=== PATIENT | male | born 1960 | race Caucasian/White ===

== ENCOUNTER 2021-06-02 09:41 | Outpatient (CLI) | payer BC, SELFPAY ==
--- NOTE | ~2021-06-02 | XR_ITS ---
EXAMINATION: XR shoulder LT min 2V DATE: 06/02/2021 09:59 INDICATION: Adhesive capsulitis of left shoulder. Limited range of motion. TECHNIQUE: 4 views of left shoulder were obtained. COMPARISON: None. FINDINGS: Bone alignment is normal. No fracture. There is mild osteoarthritis of glenohumeral joint a nd moderate osteoarthritis of acromioclavicular joint. IMPRESSION: 1. Polyarticular osteoarthritis. Reviewed, dictated and finalized at location A.
== END 2021-06-02 09:42 | disposition home or self-care (01) ==
LOC: ANHIMG 09:43
PROVIDERS: PCP Internal Medicine; Visit Provider Internal Medicine
DX: M19.012 Primary osteoarthritis, left shoulder (principal); M75.02 Adhesive capsulitis of left shoulder
CPT/HCPCS: 73030

== ENCOUNTER 2021-12-09 00:20 | Day surgery (SDC) | payer BC, SELFPAY ==
[2021-11-25 14:28] VITALS: BMI 32.0
--- NOTE | 2021-12-08 16:58 | PM.HPGS ---
History of Present Illness History of Present Illness Consent: Risks, benefits, and alternatives have been discussed and questions answered. Patient agrees to proceed with procedure. Chief complaint: hx colon polyps Narrative: Harish To is a 61 year old male referred for colon cancer screening. He has had polyps removed in the past. 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 Encounter for preventive health examination Encounter for routine adult health examination with abnormal findings Encounter to establish care Essential tremor Follow up History of alcoholism Hx of colonic polyps Hyperlipidemia Impacted cerumen of left ear 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 Peripheral neuropathy Personal history of COVID-19 Prostate cancer screening Ventral hernia Vitamin D deficiency Surgical History Surgical History H/O colonoscopy 2017- 5 yr schedule History of coronary artery stent placement Hx of angioplasty Hx of tonsillectomy Social History Social History Smoking status: Current every day smoker Second hand tobacco smoke exposure: No Additional smoking assessment comments: Smokes Marijuana Alcohol intake: current Drinks per week: 1 Substance use: current Substance use type: marijuana Last use: 11/25/2021 Meds Home Medications and Allergies Home Medications Medication Instructions Recorded Confirmed Type ascorbic acid (vitamin C) 1,000 mg 1 g PO DAILY 03/12/20 12/09/21 History tablet aspirin 81 mg tablet,delayed 81 mg PO DAILY 03/12/20 12/09/21 History release (Adult Low Dose Aspirin) cetirizine 10 mg capsule (Allergy 10 mg PO DAILY PRN Allergy Symptoms 03/12/20 12/09/21 History Relief (cetirizine)) cholecalciferol (vitamin D3) 50 50 mcg PO DAILY 03/12/20 12/09/21 History mcg (2,000 unit) capsule lisinopril 40 mg tablet 40 mg PO DAILY 03/12/20 12/09/21 History multivitamin 1 tablet PO DAILY 03/12/20 12/09/21 History omeprazole 20 mg capsule,delayed 20 mg PO DAILY 03/12/20 12/09/21 History release pen needle, diabetic 31 gauge x #100 ea 11/21/20 12/09/21 Rx 3/16 (BD Ultra-Fine Mini Pen Needle) clopidogrel 75 mg tablet See Rx Instructions .Route 04/10/21 12/09/21 Rx .COMPLEX #90 tabs flash glucose scanning reader #1 ea 06/10/21 12/09/21 Rx (FreeStyle Chris 2 [place]) flash glucose sensor (FreeStyle #6 ea 06/10/21 12/09/21 Rx Chris 2 Sensor kit) liraglutide 0.6 mg/0.1 mL (18 mg/3 See Rx Instructions .Route 11/17/21 12/09/21 Rx mL) subcutaneous pen injector .COMPLEX #9 mL (Victoza 3-Juan) insulin glargine U-300 conc 300 See Rx Instructions .Route 11/23/21 12/09/21 Rx unit/mL (1.5 mL) subcutaneous pen .COMPLEX #4.5 mL (Toujeo SoloStar U-300 Insulin) gabapentin 100 mg capsule See Rx Instructions .Route 12/09/21 Rx .COMPLEX #90 caps metformin 1,000 mg tablet See Rx Instructions .Route 12/09/21 Rx .COMPLEX #75 tabs rosuvastatin 40 mg tablet See Rx Instructions .Route 12/09/21 Rx .COMPLEX #30 tabs Allergies Allergy/AdvReac Type Severity Reaction Status Date / Time No Known Allergies Allergy Verified 12/09/21 07:09 Exam Const: General: alert Orientation/consciousness: patient oriented x3 Resp: Auscultation: clear to auscultation bilaterally Cardio: Rhythm: regular rhythm GI: GI Palp: Yes Soft to palpation and No Tenderness to palpation
[2021-12-09 07:00] VITALS: BP 147/88; PULSE 147; RESP 18; TEMP 36.5; O2SAT 96; BMI 31.4
[2021-12-09] MEDS: LACTATED RINGERS 1,000 ML 150 ML IV CONT (07:21)
[2021-12-09 07:24] LABS: Glucose Point of Care 352 mg/dl (65-105)
--- NOTE | 2021-12-09 07:43 | WPDANESEPPF ---
Anes - Initial Pre Proc Eval Procedure: Operation Date: 12/09/21 08:00 Proposed Procedures p Screening Colonoscopy - Skyler Edmonds MD Date/Time: 12/09/21 07:43 Surgeon: kSyler Edmonds MD Pre Op Diagnosis: hx colon polyps Patient Data Age: 61 Gender: M Height: 1.83 m Weight: 104.9 kg Last Vital Signs Temp 97.7 F 12/09/21 07:00 Pulse 147 H 12/09/21 07:00 Resp 18 12/09/21 07:00 BP 147/88 H 12/09/21 07:00 Pulse Ox 96 12/09/21 07:00 O2 Del Method Room Air 12/09/21 07:00 Allergies Allergy/AdvReac Type Severity Reaction Status Date / Time No Known Allergies Allergy Verified 12/09/21 07:09 Home Medications Medication Instructions Recorded Confirmed Type ascorbic acid (vitamin C) 1,000 mg 1 g PO DAILY 03/12/20 12/09/21 History tablet aspirin 81 mg tablet,delayed 81 mg PO DAILY 03/12/20 12/09/21 History release (Adult Low Dose Aspirin) cetirizine 10 mg capsule (Allergy 10 mg PO DAILY PRN Allergy Symptoms 03/12/20 12/09/21 History Relief (cetirizine)) cholecalciferol (vitamin D3) 50 50 mcg PO DAILY 03/12/20 12/09/21 History mcg (2,000 unit) capsule lisinopril 40 mg tablet 40 mg PO DAILY 03/12/20 12/09/21 History multivitamin 1 tablet PO DAILY 03/12/20 12/09/21 History omeprazole 20 mg capsule,delayed 20 mg PO DAILY 03/12/20 12/09/21 History release pen needle, diabetic 31 gauge x #100 ea 11/21/20 12/09/21 Rx 3/16 (BD Ultra-Fine Mini Pen Needle) clopidogrel 75 mg tablet See Rx Instructions .Route 04/10/21 12/09/21 Rx .COMPLEX #90 tabs flash glucose scanning reader #1 ea 06/10/21 12/09/21 Rx (FreeStyle Chris 2 [place]) flash glucose sensor (FreeStyle #6 ea 06/10/21 12/09/21 Rx Chris 2 Sensor kit) liraglutide 0.6 mg/0.1 mL (18 mg/3 See Rx Instructions .Route 11/17/21 12/09/21 Rx mL) subcutaneous pen injector .COMPLEX #9 mL (Victoza 3-Juan) insulin glargine U-300 conc 300 See Rx Instructions .Route 11/23/21 12/09/21 Rx unit/mL (1.5 mL) subcutaneous pen .COMPLEX #4.5 mL (Toujeo SoloStar U-300 Insulin) gabapentin 100 mg capsule See Rx Instructions .Route 12/09/21 Rx .COMPLEX #90 caps metformin 1,000 mg tablet See Rx Instructions .Route 12/09/21 Rx .COMPLEX #75 tabs rosuvastatin 40 mg tablet See Rx Instructions .Route 12/09/21 Rx .COMPLEX #30 tabs Laboratory Tests 12/09/21 07:16 POC Capillary Glucose 352 mg/dl H mg/dl (65-105) Patient hx anesthesia problems: none Family hx anesthesia problems: none Results Review: All pre-operative results and documents have been reviewed as part of the pre-operative evaluation. 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 Encounter for preventive health examination Encounter for routine adult health examination with abnormal findings Encounter to establish care Essential tremor Follow up History of alcoholism Hx of colonic polyps Hyperlipidemia Impacted cerumen of left ear 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
[2021-12-09 08:15] VITALS: BP 106/68; PULSE 95; RESP 16; O2SAT 97
[2021-12-09 08:24] LABS: Glucose Point of Care 285 mg/dl (65-105)
[2021-12-09 08:25] VITALS: BP 107/74; PULSE 93; RESP 24; O2SAT 94
[2021-12-09 08:35] VITALS: BP 123/86; PULSE 82; RESP 18; O2SAT 96
== END 2021-12-09 08:50 | disposition home or self-care (01) ==
PROVIDERS: PCP Internal Medicine; Visit Provider Internal Medicine Gastroenterology
PROC: 0DJD8ZZ Inspection of Lower Intestinal Tract, Via Natural or Artificial Opening Endoscopic (ICD-10-PCS; CPT 45378; principal; 2021-12-09 08:00)
DX: Z12.11 Encounter for screening for malignant neoplasm of colon (principal); D12.4 Benign neoplasm of descending colon; D12.2 Benign neoplasm of ascending colon; I25.10 Atherosclerotic heart disease of native coronary artery without angina pectoris; I10 Essential (primary) hypertension; G25.0 Essential tremor; E78.5 Hyperlipidemia, unspecified; E11.40 Type 2 diabetes mellitus with diabetic neuropathy, unspecified; E55.9 Vitamin D deficiency, unspecified; Z79.82 Long term (current) use of aspirin; Z79.02 Long term (current) use of antithrombotics/antiplatelets; Z79.899 Other long term (current) drug therapy; Z79.84 Long term (current) use of oral hypoglycemic drugs; Z79.4 Long term (current) use of insulin; Z95.5 Presence of coronary angioplasty implant and graft; F12.90 Cannabis use, unspecified, uncomplicated; E66.9 Obesity, unspecified; Z68.31 Body mass index [BMI] 31.0-31.9, adult
CPT/HCPCS: 45380; 82948; 88305; J2704; J7120

== ENCOUNTER 2022-05-26 09:45 | Outpatient (RCR) | payer BC, SELFPAY ==
[2022-04-07 11:15] LABS: Glucose Point of Care 248 mg/dl (65-105)
[2022-04-15 10:40] LABS: Glucose Point of Care 235 mg/dl (65-105)
[2022-04-15 10:40] LABS: Glucose Point of Care 244 mg/dl (65-105)
[2022-05-03 10:33] LABS: Glucose Point of Care 133 mg/dl (65-105)
[2022-05-03 10:33] LABS: Glucose Point of Care 149 mg/dl (65-105)
[2022-05-10 10:53] LABS: Glucose Point of Care 274 mg/dl (65-105)
[2022-05-26 09:55] LABS: Glucose Point of Care 231 mg/dl (65-105)
[2022-05-26 10:31] LABS: Glucose Point of Care 289 mg/dl (65-105)
== END 2022-06-10 16:28 | disposition home or self-care (01) ==
LOC: ANHCPREHAB 09:45
PROVIDERS: PCP Internal Medicine; Visit Provider Surgery
DX: Z95.1 Presence of aortocoronary bypass graft (principal)
CPT/HCPCS: 93798

== ENCOUNTER 2022-12-01 08:40 | Outpatient (CLI) | payer BC, SELFPAY ==
--- NOTE | 2022-12-21 16:42 | WPDSLEEPSTUD ---
Sleep Study Date of Study: 12/01/22 Ordering Provider: Jorge Wild MD Interpreting Physician: Chelo Hough MD Sleep Study Type: Split Polysomnogram Height: 1.83 m Weight: 90.718 kg Body Mass Index: 27.1 Neck Circumference (inches): 17 [place]: 18 Reason for Sleep Study Hypersomnolence Sleep History Harish To is a 62-year-old man with excessive daytime sleepiness and excessive sleep episodes up to 16 hours a day. He it started after he had COVID in January 2021. He never awakens from sleep feeling short of breath. He never wakes at night with heartburn, belching or coughing.??He is not sure if he snores snores, does not know if he snores loudly enough that others complain. He never has trouble sleeping when he has a cold. He never wakes up gasping for breath during the night. He never has breathing problems at night. He never sweats excessively at night. He never notices his heart pounding or beating irregularly during the night. He constantly falls asleep during the day. He constantly falls asleep involuntarily, rarely falls asleep while driving. He never experiences loss of muscle tone with strong emotion. He never has daytime difficulty at work due to excessive sleepiness, he is retired. He never feels paralyzed on waking or falling asleep. He never experiences vivid dreams upon waking or falling asleep. He never feels afraid of going to sleep. He rarely has nightmares. He frequently recalls his dreams. He rarely has thoughts racing through his mind. He never feels sad or depressed. He never feels anxiety. He never notices parts of his body jerk. He never kicks during the night. He never feels crawling or aching feelings in his legs. He never feels leg pain at night. He never has morning jaw pain, frequently grinds his teeth at night. He constantly feels bothered by pain during the day, occasionally awakened by pain during the night. He never wakes up feeling stiff in the morning, and he never wakes feeling sore or achy. He never awakens with pain in his neck, spine, or joints. Normal bedtime is 9:00 p.m., falling asleep within 5 minutes. He wakes 4 times during the night to urinate, returning to sleep within 5 minutes. He typically gets 10-12+ hours of sleep including daytime naps. His wake up time is 7:00 a.m.. He takes naps in the day, although he does not feel refreshed afterwards. He is drowsy for 3 hours after waking. Habits:??Tobacco: Never Caffeine: 2 servings daily. 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 Encounter for preventive health examination Encounter for routine adult health examination with abnormal findings Encounter for routine adult health examination without abnormal findings Encounter to establish care Essential tremor Follow up History of alcoholism Hx of colonic polyps Hyperlipidemia Hypersomnolence Impacted cerumen of left ear Insomnia On shelter drug therapy Peripheral neuropathy Personal history of COVID-19 Prostate cancer screening Seasonal allergies Ventral hernia Vitamin D deficiency Surgical History Surgical History H/O colonoscopy 2017- 5 yr schedule History of coronary artery stent placement Hx of angioplasty Hx of tonsillectomy Family History Family History Father Hypertension Diabetes mellitus Mother Liver cancer Social History
[2022-12-22 10:38] VITALS: BMI 27.1
== END 2022-12-02 06:38 | disposition home or self-care (01) ==
LOC: ANHCSM 08:41
PROVIDERS: PCP Internal Medicine; Visit Provider Internal Medicine
DX: G47.33 Obstructive sleep apnea (adult) (pediatric) (principal); G47.10 Hypersomnia, unspecified; E78.5 Hyperlipidemia, unspecified; I25.10 Atherosclerotic heart disease of native coronary artery without angina pectoris; E11.9 Type 2 diabetes mellitus without complications; Z79.4 Long term (current) use of insulin; E55.9 Vitamin D deficiency, unspecified
CPT/HCPCS: 95811

== ENCOUNTER 2023-02-21 11:06 | Emergency (ER) | payer BC, SELFPAY ==
--- NOTE | ~2023-02-21 | CT_ITS ---
EXAMINATION: CT cervical spine wo con DATE: 02/21/2023 13:01 INDICATION: Head injury. Neck pain. TECHNIQUE: Computed tomography (CT) of the cervical spine was performed without intravenous contrast. Automated exposure control and iterative reconstruction technique were employed. The dose-length pro duct was 514.71 mGy-cm. COMPARISON: None FINDINGS: There is mild kyphosis of cervical spine. There is 7 degrees dextrocurvature of cervicothor acic spine. Vertebral body heights are normal. There is mildly decreased disc height at C4-C5, C5-C6, and C6-C7. There is ossification of posterior longitudinal ligament at the C6 and C7 with mild centr al canal stenosis. The following disc levels are specifically discussed: C2-C3: There is mild bilateral uncovertebral joint osteoarthritis. There is severe right and moderate left facet joint osteoarthritis. There is mild right neural foraminal stenosis. There is no central canal stenosis. C3-C4: There is moderate right and mild left uncovertebral joint osteoarthritis. There is moderate bi lateral facet joint osteoarthritis. There is mild bilateral neural foraminal stenosis. There is mild central canal stenosis. C4-C5: There is mild right and moderate left uncovertebral joint osteoarthritis. There is mild bilate ral facet joint osteoarthritis. There is mild bilateral neural foraminal stenosis. There is mild cent ral canal stenosis. C5-C6: There is mild bilateral uncovertebral joint osteoarthritis. There is moderate and severe left facet joint osteoarthritis. There is mild bilateral neural foraminal stenosis. There is mild central canal stenosis. C6-C7: There is mild bilateral uncovertebral joint osteoarthritis. There is moderate bilateral facet joint osteoarthritis. There is mild left neural foraminal stenosis. There is mild central canal steno sis. C7-T1: There is no uncovertebral joint osteoarthritis. There is moderate and severe left facet joint osteoarthritis. There is mild left neural foraminal stenosis. There is no central canal stenosis. IMPRESSION: 1. No fracture. 2. Mild cervical spondylosis. Reviewed, dictated and finalized at location A. INE STUFFER
--- NOTE | ~2023-02-21 | XR_ITS ---
EXAMINATION: XR shoulder RT min 2V DATE: 02/21/2023 12:49 INDICATION: Right shoulder pain. Fall. TECHNIQUE: 4 views of right shoulder were obtained. COMPARISON: None. FINDINGS: Bone alignment is normal. There is heterotopic ossification adjacent to superior aspect of distal clavicle. There is severe osteoarthritis of acromioclavicular joint and mild osteoarthritis of glenohumeral joint. Median sternotomy wires are noted. IMPRESSION: 1. 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 2. Polyarticular osteoarthritis. Reviewed, dictated and finalized at location A. GER PROJECT MANAGEMENT IMPRESSION: 1. 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 2. Polyarticular osteoarthritis.
--- NOTE | ~2023-02-21 | CT_ITS ---
EXAMINATION: CT brain wo con DATE: 02/21/2023 13:01 INDICATION: Head injury. TECHNIQUE: Computed tomography (CT) of the head was performed without intravenous contrast. The mA wa s adjusted according to patient size. Iterative reconstruction technique was employed. The dose-lengt h product was 756.67 mGy-cm. COMPARISON: None FINDINGS: There is no intracranial hemorrhage, acute infarction, or abnormal intracranial mass lesion . There are scattered areas of low attenuation in the cerebral white matter, which is within normal l imits for the patient's age. The ventricles are normal in size. The orbits are normal. There is mild mucosal thickening in the paranasal sinuses. The mastoid air cells are normal. The orbits are normal. IMPRESSION: 1. Normal aging brain. Reviewed, dictated and finalized at location A. N MENDER IMPRESSION: 1. Normal aging brain.
[2023-02-21 11:08] VITALS: BP 152/85; PULSE 116; RESP 18; TEMP 37.1; O2SAT 100
--- NOTE | 2023-02-21 12:01 | ED.FALL ---
HPI - Fall General Chief Complaint: Fall Stated Complaint: fall last night Time Seen by Provider: 02/21/23 11:13 History of Present Illness HPI Narrative: [age] old male present to the emergency department for evaluation after having a ground level fall. Patient reports he was intoxicated last night and fell backwards and struck his head. Patient denies any loss conscious. Patient does complain head pain and right shoulder pain. Patient is on blood thinners for cardiac reasons. Patient denies any new chest pain or shortness of breath. Patient denies any other complaints. Related Data Home Medications Medication Instructions Recorded Confirmed multivitamin 1 tablet PO DAILY 03/12/20 11/29/22 omeprazole 20 mg capsule,delayed 20 mg PO DAILY 03/12/20 11/29/22 release cholecalciferol (vitamin D3) 50 100 mcg PO DAILY 02/02/22 11/29/22 mcg (2,000 unit) capsule nitroglycerin 0.4 mg sublingual 0.4 mg sublingual Q5M PRN 03/01/22 11/29/22 tablet acetaminophen 325 mg capsule 650 mg PO Q6H PRN 03/08/22 11/29/22 aspirin 325 mg tablet 325 mg PO DAILY 03/08/22 11/29/22 Allergies Allergy/AdvReac Type Severity Reaction Status Date / Time No Known Allergies Allergy Verified 02/21/23 11:48 Review of Systems Review of Systems: All systems reviewed & are unremarkable except as noted in HPI and below PMFSH Past Medical History Medical History Abnormal ankle brachial index (SAMMIE) ASHD (arteriosclerotic heart disease) Benign essential hypertension BMI 26.0-26.9,adult BMI 27.0-27.9,adult BMI 28.0-28.9,adult BMI 29.0-29.9,adult BMI 30.0-30.9,adult CAD (coronary artery disease) Colon cancer screening Diabetes mellitus with hyperglycemia, with long-term current use of insulin 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 Encounter for preventive health examination Encounter for routine adult health examination with abnormal findings Encounter for routine adult health examination without abnormal findings Encounter to establish care Essential tremor Follow up History of alcoholism Hx of colonic polyps Hyperlipidemia Hypersomnolence Impacted cerumen of left ear Insomnia On retirement drug therapy Peripheral neuropathy Personal history of COVID-19 Prostate cancer screening Seasonal allergies Ventral hernia Vitamin D deficiency Surgical History Surgical History H/O colonoscopy 2017- 5 yr schedule History of coronary artery stent placement Hx of angioplasty Hx of tonsillectomy Family History Family History Father Hypertension Diabetes mellitus Mother Liver cancer Social History Social History Smoking status: Never smoker Second hand tobacco smoke exposure: No Additional smoking assessment comments: Smokes Marijuana Alcohol intake: current Drinks per week: 1 Substance use: current Substance use type: marijuana Last use: 11/25/2021 Lack of Transportation: No Lack of Food: Never True Current Housing: I Have Housing Concerned About Future Housing: No Difficulty Paying Gas/Electric Bills: No Difficulty Paying for Meds: No Currently Unemployed: No Education: Bachelor's Degree Difficulty w/ Childcare or Family Care: No Gender identity (if verbalized by the patient): Male Exam Narrative: APPEARANCE: Well appearing, no pain, no distress, well-nourished. HEAD: normocephalic, atraumatic. EYES: PERRLA/EOMI, conjunctivae clear. NOSE: Normal no drainage NECK: Supple. No adenopathy, no masses. RESPIRATORY: Airway patent, respirations nonlabored. Clear to auscultation bilaterally, no rales, rhonchi, wheezing. CARDIOVASCULAR: Regular rate and rhythm without murmurs rubs or gallops. ABDOMINAL: Soft, nontender, nondistended, normal bowel sounds M
== END 2023-02-21 14:53 | disposition home or self-care (01) ==
PROVIDERS: Emergency Provider Emergency Medicine; PCP Internal Medicine
DX: S09.90XA Unspecified injury of head, initial encounter (principal); S42.031A Displaced fracture of lateral end of right clavicle, initial encounter for closed fracture; I25.10 Atherosclerotic heart disease of native coronary artery without angina pectoris; I10 Essential (primary) hypertension; E78.5 Hyperlipidemia, unspecified; E11.43 Type 2 diabetes mellitus with diabetic autonomic (poly)neuropathy; E55.9 Vitamin D deficiency, unspecified; Z95.5 Presence of coronary angioplasty implant and graft; Z87.19 Personal history of other diseases of the digestive system; M47.812 Spondylosis without myelopathy or radiculopathy, cervical region; M19.011 Primary osteoarthritis, right shoulder; Z79.4 Long term (current) use of insulin; Z79.84 Long term (current) use of oral hypoglycemic drugs; Z79.82 Long term (current) use of aspirin; W01.0XXA Fall on same level from slipping, tripping and stumbling without subsequent striking against object, initial encounter
CPT/HCPCS: 70450; 72125; 73030; 99284; A4565

== ENCOUNTER 2023-04-08 12:33 | Outpatient (CLI) | payer BC, SELFPAY ==
--- NOTE | ~2023-04-08 | XR_ITS ---
Clinical Indication: Chest pain PA and lateral views of the chest: Comparison: None Findings: The lungs are clear, without evidence of focal consolidation or pleural effusion. Cardiome diastinal silhouette is within normal limits. Bones and soft tissues are unremarkable. Impression: Normal chest. Reviewed, dictated and finalized at location . AND DOG BATHER Impression: Normal chest.
--- NOTE | ~2023-04-08 | XR_ITS ---
EXAM: XR clavicle RT DATE: 04/08/2023 12:47 HISTORY: S42.001A - Fracture of part of right clavicle F/U . COMPARISON: 02/21/2023. FINDINGS: Redemonstration of a chip fracture of the distal aspect of the right clavicle, increased v isualization of the fracture line. No callus. No new acute fracture detected. Visualized lung parench yma is clear. IMPRESSION: Fracture of the distal right clavicle, increased visualization of the fracture line which may represent hyperemia from early healing change. No callus formation. Reviewed, dictated and finalized at location K. [employer]URING TECHNICIAN IMPRESSION: Fracture of the distal right clavicle, increased visualization of t he fracture line which may represent hyperemia from early healing change. No ca llus formation.
== END 2023-04-08 12:34 | disposition home or self-care (01) ==
LOC: ANHIMG 12:35
PROVIDERS: PCP Internal Medicine; Visit Provider Internal Medicine
DX: S42.001A Fracture of unspecified part of right clavicle, initial encounter for closed fracture (principal); X58.XXXA Exposure to other specified factors, initial encounter
CPT/HCPCS: 71046; 73000

== ENCOUNTER 2023-08-13 10:55 | Outpatient (CLI) | payer MEDICARE, SELFPAY ==
--- NOTE | ~2023-08-13 | MR_ITS ---
EXAMINATION: MR brain/brain stem wo/w con DATE: 08/13/2023 11:54 INDICATION: Altered mental status, unspecified. TECHNIQUE: Magnetic resonance imaging (MRI) of the brain and brainstem was performed without and with 18 mL MultiHance intravenous contrast. COMPARISON: Head CT 02/21/2023 FINDINGS: There are scattered areas of nonspecific increased T2-weighted signal intensity in the cere bral white matter, which is within normal limits for the patient's age. There is no intracranial hemo rrhage, acute infarction, or abnormal intracranial mass lesion. The ventricles are normal in size. Th ere is mild mucosal thickening in the ethmoid sinuses. The orbits are normal. The mastoid air cells a re normal. IMPRESSION: 1. Normal aging brain. Reviewed, dictated and finalized at location E. IMPRESSION: 1. Normal aging brain.
== END 2023-08-13 10:56 | disposition home or self-care (01) ==
PROVIDERS: PCP Internal Medicine; Visit Provider Internal Medicine
DX: R41.82 Altered mental status, unspecified (principal)
CPT/HCPCS: 70553; A9577

== ENCOUNTER 2024-01-09 08:40 | Outpatient (CLI) | payer MEDICARE, SELFPAY ==
--- NOTE | 2024-01-10 10:43 | WPDNEUROLOGY ---
Neurology EEG Report General Information Date of Study: 01/09/24 TEST Eeg DIAGNOSIS transient global amnesia CONDITION OF RECORDING awake drowsy and sleep EEG NUMBER [id number] CLINICAL HISTORY patient reports he was driving home last week and and ended up in [place]. Reported he remembered everything chest that he was lost and did not know how to get home. EEG DESCRIPTION Background rhythm consists of low to medium voltage 5 to 6 hertz per 2nd theta activity admixed with intermittent 3 to 4 hertz per 2nd delta activity. Bilateral symmetrical sleep activity is noted during sleep with symmetrical sleep spindles. Photic stimulation produced normal drive. Hyperventilation not done. Non paroxysmal. Nonfocal. Nonlateralizing. IMPRESSION Mildly abnormal record due to the presence of bihemispheric excessive amount of theta activity though there is no evidence of any paroxysmal discharge or evidence of electrical focal activity on either hemisphere. Clinical correlation recommended . This tracing is not compatible with seizure, the possibility of a focal lesion cannot be ruled out .
== END 2024-01-09 08:41 | disposition home or self-care (01) ==
LOC: ANHLAB 08:41
PROVIDERS: PCP Internal Medicine; Visit Provider Internal Medicine
DX: G45.4 Transient global amnesia (principal)
CPT/HCPCS: 95816

== ENCOUNTER 2024-06-08 16:57 | Outpatient (CLI) | payer MEDICARE, SELFPAY ==
--- NOTE | ~2024-06-08 | XR_ITS ---
XR chest 2V Ordering provider: Jorge Wild MD History: 64 years Male with . R63.4 - Abnormal weight loss . Comparison: April 08, 2023 FINDINGS: MEDIASTINUM: The cardiac silhouette is not enlarged. Postoperative changes in the mediastinum. LUNGS: No infiltrates, effusions or pneumothorax. OTHER: No free air under the diaphragm. Degenerative changes of the spine. IMPRESSION: No acute cardiopulmonary pathology. Reviewed, dictated and finalized at location A.
--- OUTSIDE RECORDS SUMMARY | 2024-06-08 17:03 | XMS_ITS | Data Portability ---
Author Organization [facility] OFFICE Address [address] [address] Assessment Encounter Date Assessment Date Assessment LastModified by Organization Details LastModified Time 12/25/2018 12/25/2018 LABORATORY ANALYSIS: The patient s laboratory analysis was obtained on December 11, 2018 and shows a cholesterol of 141, HDL 44, LDL 73 and triglycerides 166. Glucose is 237. His A1c on December 11, 2018 was 9.8. The patient s NMR LipoProfile was discussed in detail and has some high-risk areas here, but his myeloperoxidase level is in a good range of 345 and modifications were discussed with the patient for dietary and activity changes. His other chemistry tests are discussed including his CMP, which is otherwise stable with a BUN and creatinine of 11 and 0.75 respectively. Alkaline phosphatase is normal. His thyroid profile did show a TSH of 1.22, which is normal. White count is 7.0, hemoglobin 15.1 and platelet count was 231. The patient does show some glucose on his urinalysis. His PSA was 1.0, which is stable for the patient. His Hemoccult stool card done on our examination was negative. The other laboratory analysis for the patient included his EKG, which is done on December 11, 2018 showing a sinus rhythm, a few nonspecific changes, but those appear to be stable compared to previous EKG, which was performed on July 12, 2017. His other testing included spirometry, which showed an FEV1 of 3.87 and his oxygen saturation at the time of testing on December 11, 2018 was 100%. His audiogram was also recorded and his ankle brachial index was 0.9 both left and right. A&P: The patient is 58 years old. He does have a history of coronary artery disease and diabetes type 2, which is insulin requiring. We are adjusting the patient s insulin dose. He is on Toujeo now at a dose of 70 units a day. We will continue his other medications. We will also increase the insulin dose to 80 units a day now subcutaneously. He does have followup appointments with his specialists as necessary. He saw Dr. Adan from a cardiac perspective on October 20, 2018. He will call Dr. Car Middleton and confirm about the next colonoscopy when that is due and also keep up with eye examination. We have to confirm if he has received Shingrix shots. He will be getting a Tdap shot today, which is December 25, 2018. He will aggressively work on diet, exercise and lifestyle changes. Specifically, he will be retiring as of February 22, 2019. He will be returning some time in January that actually will be his last day. He will be working on exercise and diet with more than 150 minutes of walking per day and improving in terms of diet intake. We have also gone over screening tests with the patient including fall risk screen, depression screen, anxiety screens and alcohol screens and those are negative. The patient is going to AA six times a week now and he is doing quite well. No other issues or problems for him. He is making good progress and we expect even improving labs as we increased the patient s insulin and perhaps titrate as necessary going forward. He will return back to the office in approximately two to three months time when he will have a CMP, lipid profile, A1c and CBC performed two weeks prior. He will call for any other questions or changes in the interim or should his improvements in his diet, exercise, etc. prove to be inadequate, he will aggressively follow on this. 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 We will continue to follow the patient closely. Last Dennison III, MD. MAYO/claire/ SHARYN/Last--Jesi- -[id number] DOT: 12/25/2018 matty Not available 12/26/2018 09:24:36 04/26/2019 04/26/2019 A&P: The patient with blood sugar now running about the 120s to 110 range but as high as 178. He will not titrate medicines now but can titrate down to as low as 20 units of his Toujeo and going on the Victoza from 1.8 units down to 1.2 units as it goes in .6 mg increments on his pen. He will have laboratory analysis today including a CMP, lipid profile, A1c, and CBC with a glucose reading now. He will return back in a couple of weeks time to go over those test but also follow the progress on the glucose readings. Ultimately, he will return back in December of 2019 and we will make adjustments in terms of his visits and therapies based on his progress. He expressed understanding and agreement in our plans. Last Dennison III, MD/claire/SHARYN/ 020 jboslerlll Not available 04/27/2019 12:24:46 05/17/2019 05/17/2019 A&P: The patient with blood sugar now running about the 130s range but as high as 193. The patient s laboratory analysis was obtained on 04/26/2019 and shows a cholesterol of 132, HDL 42, LDL 59 and triglycerides 267. Glucose is 205. His A1c on December 11, 2018 was 9.8 however has improved to 8.7% as of 05/02/2019 and he expects this to continue to improve. He will continue on his other medicines also including the Victoza pen. He will return back in a couple or three months with a CMP, Lipid and A1C to be done 2 weeks prior. We will follow the progress and his glucose readings. Ultimately, he will return back in December of 2019 and we will make adjustments in terms of his visits and therapies based on his progress. He expressed understanding and agreement in our plans. And he will contact us for any questions for changes in status. aLst Dennison III, MD/05/17/2019 [email or web address] Not available 05/17/2019 11:38:49 Plan of Treatment Reminders Order Date Submit Date Provider Last Modified By Organization Details Last Modified Time Details Appointments None recorded. 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, respirato ry specimen 2019 020 anderson Factorli [facility], [address], [facility], [place], [address], 0 08:47:52 HbA1c (hemoglob in A1c), blood 2019 020 [facility], [address], [place], [address], 0 13:40:37 glucose, fasting, fingersti ck, blood (point of care) 2019 020 [facility], [address], [place], [address], 0 13:40:37 lipid panel, serum 2019 020 [facility], [address], [facility], [place], [address], 0 07:40:19 CMP, serum or plasma 2019 020 [facility], [address], [facility], [place], [address], 0 07:40:19 CBC w/ auto diff 2019 020 [facility], [address], [place], [address], 0 13:40:37 fecal occult blood, immunoass ay, stool 2018 019 [facility], [address] [facility] [address], [address], 9 10:33:43 unlisted lab - mdvip alternati ve awp 2018 019 shireen [facility], [address], [place], [address], 9 15:56:54 Referral None recorded. Procedures body compositi on analysis (PROC) 2018 019 [facility], [address], [address], 9 10:26:48 Surgeries None recorded. Imaging audiogram [id number], [address], [address], 9 15:02:38 spirometr y [email or web address], [address], [address], 9 15:02:38 electroca rdiogram [address], [address], [address], 9 15:02:38 Medication Orders None recorded. Patient TargetsNo targets recorded. Patient Instructions Encounter Date Encounter Id Patient Instructions Last Modified By Organization Details Last Modified Time 12/11/2018 [id number] (SAMMIE) ankle brachial index* jboslerlll Not available 12/11/2018 10:26:48 cano anxiety inventory* jboslerlll Not available 12/11/2018 10:26:48 epworth sleepiness scale* jboslerlll Not available 12/11/2018 10:26:48 functional assessment screening* jboslerlll Not available 12/11/2018 10:26:48 mini mental state exam* jboslerlll Not available 12/11/2018 10:26:48 visual acuity* jboslerlll Not available 12/11/2018 10:26:48 Patient reminded blood was drawn today. Encouraged to hydrate and be cautious as they may become dizzy or light headed. If issues or symptoms, return to clinic or contact nearest medical personnel. We look forward to seeing you to discuss the results of these labs. Be well and see you soon! anderson Not available 12/11/2018 09:26:27 12/25/2018 [id number] In compliance with Medicare guidelines, we will be billing Medicare to inform them of your adherence to completing your necessary preventive care. anderson Not available 12/25/2018 08:15:54 Reason for Referral None Reported. Results Created Date Observation Date Name Description Value Unit Range Abnormal Flag Note LastModifiedBy Organization Detail LastModifiedTime 11/14/1911/14/2018 lipid panel , serum cholesterol, total 148 mg/dL <200 normal Not Available [facility] [address] [facility], [place], [address], 11/14/2018 09:19:16 11/14/1911/14/2018 lipid panel , serum HDL cholesterol 46 mg/dL >40 normal Not Available [facility] [address] [facility], [place], [address], 11/14/2018 09:19:16 11/14/1911/14/2018 lipid panel , serum triglyceride s 247 mg/dL <150 high If a non-f astin g speci men was colle cted, consi josé miguel repea t trigl yceri de testi ng on a fasti ng speci men if clini mateusz indic ated. Savage nolasco et al. J. of Clin. Lipid ol. 2015; 9:129 -169. Not Available [facility] [address] [facility], [place], [address], 11/14/2018 09:19:16 11/14/1911/14/2018 lipid panel , serum LDL-choleste rol 68 mg/dL _(jorge alberto c) normal Refer ence range : <100 Leobardo able range <100 mg/dL for prima ry preve ntion ; <70 mg/dL for patie nts with CHD or diabe tic patie nts with > or = 2 CHD risk facto rs. LDL-C is now calcu lated using the Chantelle n-Hop kins calcu kodak n, which is a valid ated novel shereen panchal acleandro than the Fried naheed equat ion in the estim ation of LDL-C . Chantelle maria SS et al. TERENCE. 2013; 310(1 9): 2061- 2068 (http ://ed ucati on.Qu estDi leaselocks. com/f aq/FA Q164) Not Available [facility] [address] [facility] [place], [address], 11/14/2018 09:19:16 11/14/1911/14/2018 lipid panel , serum chol/HDLC ratio 3.2 (calc ) <5.0 normal Not Available [facility] [address] [place], [address], 11/14/2018 09:19:16 11/14/1911/14/2018 lipid panel , serum non HDL cholesterol 102 mg/dL _(jorge alberto c) <130 normal For patie nts with diabe mayda plus 1 major ASCVD risk facto r, treat ing to a non-H DL-C goal of <100 mg/dL (LDL- C of <70 mg/dL ) is consi malissa rodriguez optio n. Not Available [facility] [address] [facility] [place], [address], 11/14/2018 09:19:16 11/14/1911/14/2018 thyro id panel , serum T3 uptake 28 % 22-35 normal Not Available [facility] [address] [facility] [place], [address], 11/14/2018 09:19:17 11/14/1911/14/2018 thyro id panel , serum T4 (thyroxine), total 8.7 mcg/d L 4.9-10 .5 normal Not Available [facility] [address] [facility] [place], [address], 11/14/2018 09:19:17 11/14/1911/14/2018 thyro id panel , serum free T4 index (T7) 2.4 1.4-3. 8 normal Not Available [facility] [address] [facility] [place], [address], 11/14/2018 09:19:17 11/14/1911/14/2018 thyro id panel , serum TSH 0.95 mIU/L 0.40-4 .50 normal Not Available [facility] [address] [facility] [place], [address], 11/14/2018 09:19:17 11/14/1911/14/2018 CMP, serum or plasm a glucose 178 mg/dL 65-99 high Fasti ng refer ence inter itz For someo ne witho ut known diabe mayda, a gluco se value >125 mg/dL indic ates that they may have diabe mayda and this shoul d be confi rmed with a follo w-up test. Not Available [facility] [address] [place], [address], 11/14/2018 09:19:17 11/14/1911/14/2018 CMP, serum or plasm a urea nitrogen (BUN) 12 mg/dL 7-25 normal Not Available [facility] [address] [place], [address], 11/14/2018 09:19:17 11/14/1911/14/2018 CMP, serum or plasm a creatinine 0.84 mg/dL 0.70-1 .25 normal For patie nts >49 years of age, the refer ence limit for Creat inine is appro ximat gaudencio 13% highe r for peopl e ident ified as Afric an-Am agnes n. Not Available [facility] [address] [facility] [place], [address], 11/14/2018 09:19:17 11/14/1911/14/2018 CMP, serum or plasm a eGFR non-afr. indian 95 mL/mi n/1.7 3m2 > or = 60 normal Not Available [facility] [address] [place], [address], 11/14/2018 09:19:17 11/14/1911/14/2018 CMP, serum or plasm a eGFR 110 mL/mi n/1.7 3m2 > or = 60 normal Not Available [facility] [address] [place], [address], 11/14/2018 09:19:17 11/14/1911/14/2018 CMP, serum or plasm a BUN/creatini ne ratio NOT APPLIC ABLE (calc ) 6-22 Not Available [facility] [address] [facility] [place], [address], 11/14/2018 09:19:17 11/14/1911/14/2018 CMP, serum or plasm a sodium 136 mmol/ L 135-14 6 normal Not Available [facility] [address] [facility] [place], [address], 11/14/2018 09:19:17 11/14/1911/14/2018 CMP, serum or plasm a potassium 4.3 mmol/ L 3.5-5. 3 normal Not Available [facility] [address] [facility] [place], [address], 11/14/2018 09:19:17 11/14/1911/14/2018 CMP, serum or plasm a chloride 97 mmol/ L 98-110 low Not Available [facility] [address] [facility] [place], [address], 11/14/2018 09:19:17 11/14/1911/14/2018 CMP, serum or plasm a carbon dioxide 28 mmol/ L 20-32 normal Not Available [facility] [address] [facility] [place], [address], 11/14/2018 09:19:17 11/14/1911/14/2018 CMP, serum or plasm a calcium 9.9 mg/dL 8.6-10 .3 normal Not Available [facility] [address] [facility] [place], [address], 11/14/2018 09:19:17 11/14/1911/14/2018 CMP, serum or plasm a protein, total 7.3 g/dL 6.1-8. 1 normal Not Available [facility] [facility] [place], [address], 11/14/2018 09:19:17 11/14/19 19 11/14/2018 CMP, serum or plasm a albumin 4.3 g/dL 3.6-5. 1 normal Not Available [facility] [address] [place] [address], [address], 11/14/2018 09:19:17 11/14/1911/14/2018 CMP, serum or plasm a globulin 3.0 g/dL_ (calc ) 1.9-3. 7 normal Not Available [address], [address], 11/14/2018 09:19:17 11/14/1911/14/2018 CMP, serum or plasm a albumin/glob ulin ratio 1.4 (calc ) 1.0-2. 5 normal Not Available [facility] [address] [place] [address], [address], 11/14/2018 09:19:17 11/14/1911/14/2018 CMP, serum or plasm a bilirubin, total 0.4 mg/dL 0.2-1. 2 normal Not Available [facility] [address] [place] [address], [address], 11/14/2018 09:19:17 11/14/1911/14/2018 CMP, serum or plasm a alkaline phosphatase 77 U/L 40-115 normal Not Available [facility] [address] [place] [address], [address], 11/14/2018 09:19:17 11/14/1911/14/2018 CMP, serum or plasm a AST 21 U/L 10-35 normal Not Available [facility] [address] [place], [address], 11/14/2018 09:19:17 11/14/19 19 11/14/2018 CMP, serum or plasm a ALT 34 U/L 9-46 normal Not Available [facility] [address] [place], [address], 11/14/2018 09:19:17 11/14/19 19 11/14/2018 vitam in D, 25-hy droxy , total , serum vitamin D,25-oh,tota l,ia 32 NG/mL 30-100 normal Vitam in D Statu s 25-OH Vitam in D: Defic iency : <20 ng/mL Insuf ficie ncy: 20 - 29 ng/mL Optim al: > or = 30 ng/mL For 25-OH Vitam in D testi ng on patie nts on D2-valdez pplem entat ion and patie nts for whom quant itati on of D2 and D3 fract ions is requi red, the [facility] Ass[facility] eD(TM ) 25-OH VIT D, (D2,D 3), LC/MS /MS is recom jozef d: order code 57363 (rita ents >2yrs ). For more infor aubrey maria on this test, go to: http: //franklin coombs gnost ics.c om/fa q/FAQ 163 (This link is being provi ded for infor aubrey nal/e ducat ional purpo ses only. ) Not Available [facility] [address] [place], [address], 11/14/2018 09:19:18 11/14/1911/13/2018 ESR (eryt hrocy te sedim entat ion rate) , blood Sed Rate 5 Not Available [facility] [address], [place], [address], 11/13/2018 11:53:24 11/14/1911/13/2018 HbA1c (hemo globi n A1c), blood HbA1C 8.3 Not Available [facility] [address] [place] [address], [address], 11/13/2018 12:01:28 11/14/1911/13/2018 CBC w/ auto diff WBC 9.1 K/uL 4.6-10 .2 Not Available [facility] [address] [place] [address], [address], 11/13/2018 11:54:55 11/14/1911/13/2018 CBC w/ auto diff lym 2.4 K/uL 0.6-3. 4 Not Available [facility] [address] [place] [address], [address], 11/13/2018 11:54:55 11/14/1911/13/2018 CBC w/ auto diff lym % 25.9 %L 10.0-5 0.0 Not Available [facility] [address] [place] [address], [address], 11/13/2018 11:54:55 11/14/1911/13/2018 CBC w/ auto diff *mid 0.7 K/uL 0.0-0. 9 Not Available [facility] [address] [place] [address], [address], 11/13/2018 11:54:55 11/14/1911/13/2018 CBC w/ auto diff *mid % 7.7 %M 0.0-12 .0 Not Available [facility] [address] [place] [address], [address], 11/13/2018 11:54:55 11/14/1911/13/2018 CBC w/ auto diff gran 6.0 K/uL 2.0-6. 9 Not Available [facility] [address] [place] [address], [address], 11/13/2018 11:54:55 11/14/1911/13/2018 CBC w/ auto diff gran% 66.4 %g 37.0-8 0.0 Not Available [facility] [address] [place] [address], [address], 11/13/2018 11:54:55 11/14/1911/13/2018 CBC w/ auto diff RBC 5.46 M/uL 4.04-5 .48 Not Available [facility] [address] [place] [address], [address], 11/13/2018 11:54:55 11/14/1911/13/2018 CBC w/ auto diff HGB 14.9 g/dL 12.2-1 5. Not Available [facility] [address] [place] [address], [address], 11/13/2018 11:54:55 11/14/1911/13/2018 CBC w/ auto diff HCT 47.0 % 37.7-4 7.9 Not Available [facility] [address] [place] [address], [address], 11/13/2018 11:54:55 11/14/1911/13/2018 CBC w/ auto diff MCV 86.1 fL 80.0-9 7.0 Not Available [facility] [address] [place] [address], [address], 11/13/2018 11:54:55 11/14/1911/13/2018 CBC w/ auto diff MCH 27.3 pg 27.0-3 1.2 Not Available [facility] [address] [place] [address], [address], 11/13/2018 11:54:55 11/14/1911/13/2018 CBC w/ auto diff MCHC 31.7 g/dL 31.8-3 5.4 low Not Available [facility] [address] [place] [address], [address], 11/13/2018 11:54:55 11/14/1911/13/2018 CBC w/ auto diff RDW 14.2 % 11.6-1 4.8 Not Available [facility] [address] [place] [address] [place], [address], 11/13/2018 11:54:55 11/14/19 19 11/13/2018 CBC w/ auto diff plt 293 K/uL 142.-4 24. Not Available [facility] [address] [place] [address], [address], 11/13/2018 11:54:55 11/14/19 19 11/13/2018 CBC w/ auto diff MPV 7.2 fL 0.0-99 .8 Not Available [facility] [address] [place] [address], [place], [address], 11/13/2018 11:54:55 11/14/1911/13/2018 gluco se, fasti ng, finge rstic k, blood (poin t of care) FBS 161 Not Available [facility] [address] [place] [address], [address], 11/13/2018 11:54:41 12/12/1912/12/2018 PSA, serum or plasm a PSA, total 1.0 NG/mL < or = 4.0 normal The total PSA value from this assay syste m is stand ardiz ed again st the WHO stand erin. The test resul t will be appro ximat gaudencio 20% lower when jimbo red to the equim olar- stand ardiz ed total PSA (Cano man Coult er). Jimbo rison of seria l PSA resul ts shoul d be inter prete d with this fact in mind. This test was perfo rmed using the eSKY.pl chemi lumin escen t metho d. Value s obtai amy from diffe rent assay metho ds canno t be used inter eubanks eably . PSA level s, regar dless of value , shoul d not be inter prete d as absol [place] evide nce of the prese nce or absen ce of disea se. Not Available [facility] [address] [facility] [place], [address], 12/12/2018 15:04:26 12/12/19 19 12/12/2018 RPR (rapi d plasm a reagi n), serum RPR (monitor) w/refl titer NON-RE ACTIVE non-re active normal Not Available [facility] [address] [facility], [place], [address], 12/12/2018 15:04:26 12/12/19 19 12/12/2018 HIV 1+2 Ab + HIV1 p24 Ag, quant itati ve immun oassa y, serum HIV Ag/Ab, 4TH gen NON-RE ACTIVE non-re active normal HIV-1 antig en and HIV-1 /HIV- 2 antib odies were not detec ayesha. There is no labor atory evide nce of HIV infec tion. PLEAS E NOTE: This infor matio n has been discl osed to you from recor ds whose confi denti ality may be prote cted by state law. If your state requi res such prote ction , then the state law prohi bits you from fariha gallegos er discl osure of the infor matio n witho ut the speci fic writt en conse nt of the perso n to whom it perta ins, or as other das permi tted by law. A gener al autho juice ion for the relea se of medic al or other infor matio n is NOT suffi cient for this purpo se. For addit ional infor matio n pleas e refer to http: //[facility] catazalea n.que stdia gnost ics.c om/fa q/FAQ 106 (This link is being provi ded for infor matio nal/ educa gio l purpo ses only. ) The perfo rmanc e of this assay has not been clini mateusz valid ated in patie nts less than 2 years old. Not Available [facility] [address] [facility], [place], [address], 12/12/2018 19:01:45 12/12/19 19 12/12/2018 hsv (1+2) igg, serum hsv 1 IgG, type specific Ab <0.90 index normal Not Available [facility] [address] [place], [address], 12/12/2018 19:01:45 12/12/1912/12/2018 hsv (1+2) igg, serum hsv 2 IgG, type specific Ab <0.90 index normal Index Inter preta tion ----- ----- ----- ---- <0.90 Negat tim 0.90- 1.09 Equiv ocal >1.09 Posit tim This assay utili zes recom binan t type- speci fic antig ens to diffe renti ate HSV-1 from HSV-2 infec tions . A posit tim resul t canno t disti nguis h betwe en recen t and past infec tion. If recen t HSV infec tion is suspe cted but the resul ts are negat tim or equiv ocal, the assay shoul d be repea ayesha in 4-6 weeks . The perfo rmanc e rohit cteri stics of the assay have not been estab lishe d for pedia tric popul ation s, immun ocomp romis ed patie nts, or neona rose scree roc. Not Available [facility] [address] [place], [address], 12/12/2018 19:01:45 12/12/1912/12/2018 CT + NG RNA, PCR, unspe cifie d speci men chlamydia trachomatis RNA, tma, urogenital NOT DETECT ED not detect ed normal Not Available [facility] [address] [facility] [place], [address], 12/12/2018 19:01:46 12/12/1912/12/2018 CT + NG RNA, PCR, unspe cifie d speci men neisseria gonorrhoeae RNA, tma, urogenital NOT DETECT ED not detect ed normal Not Available [facility] [address] [place], [address], 12/12/2018 19:01:46 12/12/1912/12/2018 CT + NG RNA, PCR, unspe cifie d speci men comment This test was perfo rmed using the APTIM A COMBO 2 Assay ([employer] . The nabeel tical perfo rmanc e rohit cteri stics of this assay , when used to test SureP ath speci mens have been deter mined by [facility]. Not Available [facility] [address] [facility] [place], [address], 12/12/2018 19:01:46 12/12/1912/11/2018 lipid panel , serum cholesterol, total 141 mg/dL <200 Not Available [facility] - Manual Order Only [address], [place], [address], 12/16/2018 00:14:06 12/12/19 19 12/11/2018 lipid panel , serum HDL cholesterol 44 mg/dL >39 Not Available [facility] - Manual Order Only [address], [place], [address], 12/16/2018 00:14:06 12/12/19 19 12/11/2018 lipid panel , serum triglyceride s 166 mg/dL <150 high Not Available [facility] - Manual Order Only [address], [place], [address], 12/16/2018 00:14:06 12/12/19 19 12/11/2018 lipid panel , serum LDL cholesterol, calculated 73 mg/dL _(jorge alberto c) <100 Leobardo able range <100 mg/dL for prima ry preve ntion ; <70 mg/dL for patie nts with CHD or diabe tic patie nts with >= 2 CHD risk facto rs. LDL-C is now calcu lated using the Chantelle n-Hop kins calcu kodak n, which is a valid ated novel faitho kate panchal acy than the Fried naheed equat ion in the estim ation of LDL-C . Chantelle TALBERT et al. TERENCE. 2013; 310(1 9): 2061- 2068 (http ://ed mauryati on.Rachel vegaLiquid5. com/f aq/FA Q164) Not Available [facility] [address], [place], [address], 12/16/2018 00:14:06 12/12/19 19 12/11/2018 lipid panel , serum chol/HDL-C 3.2 calc <3.6 Not Available [facility] [address], [place], [address], 12/16/2018 00:14:06 12/12/19 19 12/11/2018 lipid panel , serum non-HDL cholesterol 97 mg/dL _(jorge alberto c) <130 For patie nts with diabe mayda plus 1 major ASCVD risk facto r, treat ing to a non-H DL-C goal of <100 mg/dL (LDL- C of <70 mg/dL ) is consi dered a christos aldrich n. Not Available [facility] - Manual Order Only [address], [place], [address], 12/16/2018 00:14:06 12/12/19 19 12/11/2018 lipid panel , serum TG/HDL-C 3.8 calc <2.0 high Not Available [facility] - Manual Order Only [address], [place], [address], 12/16/2018 00:14:06 12/12/1912/11/2018 CBC w/ diff WBC 7.0 K/uL 3.7-11 .0 Not Available [facility] - Manual Order Only [address], [place], [address], 12/16/2018 00:14:06 12/12/19 19 12/11/2018 CBC w/ diff RBC 5.65 M/uL 4.06-5 .70 Not Available [facility] - Manual Order Only [address], [place], [address], 12/16/2018 00:14:06 12/12/19 19 12/11/2018 CBC w/ diff hemoglobin 15.1 g/dL 12.4-1 6.9 The refer ence inter itz for red blood count , hemog lobin and hemat ocrit are based on the centr al 95th perce ntile distr ibuti on of resul ts seen for [facility] patie nts. This range does not neces saril y refle ct adequ acy of eryth rocyt e produ ction or maint enanc e for an indiv idual . Hemog lobin value s below 13 g/dL for men and 12 g/dL for women may be assoc iated with nutri gio l defic iency , bleed ing or decre ment of renal funct ion and is assoc iated with incre ased risk of morta lity, espec ially for males . (Refe rence : Nii s, et al. Curr Med Res Opin 2009; 25:11 43). Not Available [facility] - Manual Order Only [address], [place], [address], 12/16/2018 00:14:06 12/12/19 19 12/11/2018 CBC w/ diff hematocrit 47.2 % 36.7-4 8.6 Not Available [facility] - Manual Order Only [address], [place], [address], 12/16/2018 00:14:06 12/12/1912/11/2018 CBC w/ diff MCV 83.5 fL 79.0-9 9.0 Not Available [facility] - Manual Order Only [address], [place], [address], 12/16/2018 00:14:06 12/12/19 19 12/11/2018 CBC w/ diff MCH 26.7 pg 28.0-3 3.0 low Not Available [facility] - Manual Order Only [address], [place], [address], 12/16/2018 00:14:06 12/12/19 19 12/11/2018 CBC w/ diff MCHC 32.0 g/dL 32.0-3 6.0 Not Available [facility] - Manual Order Only [address], [place], [address], 12/16/2018 00:14:06 12/12/19 19 12/11/2018 CBC w/ diff red cell distribution width 13.3 % 11.7-1 5.2 Not Available [facility] - Manual Order Only [address], [place], [address], 12/16/2018 00:14:06 12/12/19 19 12/11/2018 CBC w/ diff platelet count 231 K/uL 150-40 0 Not Available [facility] - Manual Order Only [address], [place], [address], 12/16/2018 00:14:06 12/12/19 19 12/11/2018 CBC w/ diff mean platelet volume 9.5 fL 7.2-13 .0 Not Available [facility] - Manual Order Only [address], [place], [address], 12/16/2018 00:14:06 12/12/19 19 12/11/2018 CBC w/ diff neutrophil % 57.7 % 40.0-7 4.0 Not Available [facility] - Manual Order Only [address], [place], [address], 12/16/2018 00:14:06 12/12/19 19 12/11/2018 CBC w/ diff neutrophil absolute 4.05 K/uL 1.50-7 .50 Not Available [facility] - Manual Order Only [address], [place], [address], 12/16/2018 00:14:06 12/12/19 19 12/11/2018 CBC w/ diff lymphocyte % 29.1 % 19.0-4 8.0 Not Available [facility] - Manual Order Only [address], [place], [address], 12/16/2018 00:14:06 12/12/19 19 12/11/2018 CBC w/ diff lymphocyte absolute 2.04 K/uL 1.00-4 .50 Not Available [facility] - Manual Order Only [address], [place], [address], 12/16/2018 00:14:06 12/12/19 19 12/11/2018 CBC w/ diff monocyte % 8.5 % 4.0-12 .0 Not Available [facility] [address], [place], [address], 12/16/2018 00:14:06 12/12/19 19 12/11/2018 CBC w/ diff monocyte absolute 0.60 K/uL 0.10-0 .80 Not Available [facility] - Manual Order Only [address], [place], [address], 12/16/2018 00:14:06 12/12/19 19 12/11/2018 CBC w/ diff eosinophil % 3.8 % 0.0-6. 0 Not Available [facility] Only [address], [place], [address], 12/16/2018 00:14:06 12/12/19 19 12/11/2018 CBC w/ diff eosinophil absolute 0.27 K/uL 0.00-0 .50 Not Available [facility] - Manual Order Only [address], [place], [address], 12/16/2018 00:14:06 12/12/19 19 12/11/2018 CBC w/ diff basophil % 0.9 % 0.0-2. 0 Not Available [facility] - Manual Order Only [address], [place], [address], 12/16/2018 00:14:06 12/12/19 19 12/11/2018 CBC w/ diff basophil absolute 0.06 K/uL 0.00-0 .20 Not Available [facility] - Manual Order Only [address], [place], [address], 12/16/2018 00:14:06 12/12/19 19 12/11/2018 CMP, serum or plasm a glucose 237 mg/dL 65-99 high For someo ne witho ut known diabe mayda, a fasti ng gluco se value >125 mg/dL indic ates that they may have diabe mayda and this shoul d be confi rmed with a follo w-up test. The Ameri can Diabe mayda Assoc iatio n (ADA) defin es Diagn ostic Crite mayank for Diabe mayda Melli tus withi n the Stand ards of Medic al Care in Diabe mayda 2017, Diabe mayda Care 2017; 41(Valdez pplem ent 1): S1-S2 . The follo wing range s for Fasti ng Gluco se Value s are recom jozef d as Diagn ostic Crite mayank for Diabe mayda Melli tus: <100 mg/dL Chari l, 100-1 25 mg/dL Fasti ng Impai red, and >=126 mg/dL Diabe mayda. The value for diagn osis of diabe mayda (>=12 6 mg/dL Fasti ng) must be confi rmed by testi ng on a subse quent day. Not Available [facility] - Manual Order Only [address], [place], [address], 12/16/2018 00:14:06 12/12/19 19 12/11/2018 CMP, serum or plasm a calcium 9.5 mg/dL 8.5-10 .5 Not Available [facility] - Manual Order Only [address], [place], [address], 12/16/2018 00:14:06 12/12/19 19 12/11/2018 CMP, serum or plasm a sodium 138 mmol/ L 136-14 5 Not Available [facility] - Manual Order Only [address], [place], [address], 12/16/2018 00:14:06 12/12/1912/11/2018 CMP, serum or plasm a potassium 4.7 mmol/ L 3.5-5. 1 Not Available [facility] Order Only [address], [place], [address], 12/16/2018 00:14:06 12/12/1912/11/2018 CMP, serum or plasm a chloride 95 mmol/ L 95-108 Not Available [facility] - Manual Order Only [address], [place], [address], 12/16/2018 00:14:06 12/12/19 19 12/11/2018 CMP, serum or plasm a CO2 (carbon dioxide) 28 mmol/ L 21-33 Not Available [facility] - Manual Order Only [address], [place], [address], 12/16/2018 00:14:06 12/12/19 19 12/11/2018 CMP, serum or plasm a BUN (blood urea nitrogen) 11 mg/dL 8-23 Not Available [facility] Manual Order Only [address], [place], [address], 12/16/2018 00:14:06 12/12/19 19 12/11/2018 CMP, serum or plasm a creatinine 0.75 mg/dL 0.72-1 .30 Not Available [facility] - Manual Order Only [address], [place], [address], 12/16/2018 00:14:06 12/12/19 19 12/11/2018 CMP, serum or plasm a albumin 4.4 g/dL 3.5-5. 5 Not Available [facility] - Manual Order Only [address], [place], [address], 12/16/2018 00:14:06 12/12/19 19 12/11/2018 CMP, serum or plasm a total protein 7.2 g/dL 6.1-8. 0 Not Available [facility] - Manual Order Only [address], [place], [address], 12/16/2018 00:14:06 12/12/19 19 12/11/2018 CMP, serum or plasm a globulin 2.8 g/dL 1.8-3. 8 Not Available [facility] - Manual Order Only [address], [place], [address], 12/16/2018 00:14:06 12/12/19 19 12/11/2018 CMP, serum or plasm a alkaline phosphatase 77 U/L <150 Not Available [facility] - Manual Order Only [address], [place], [address], 12/16/2018 00:14:06 12/12/19 19 12/11/2018 CMP, serum or plasm a alanine aminotransfe rase (ALT) 42 U/L <51 Not Available [facility] - Manual Order Only [address], [place], [address], 12/16/2018 00:14:06 12/12/19 19 12/11/2018 CMP, serum or plasm a aspartate aminotransfe rase (AST) 30 U/L <41 Not Available [facility] - Manual Order Only [address], [place], [address], 12/16/2018 00:14:06 12/12/19 19 12/11/2018 CMP, serum or plasm a bilirubin, total 0.3 mg/dL <1.3 Not Available [facility] - Manual Order Only [address], [place], [address], 12/16/2018 00:14:06 12/12/19 19 12/11/2018 CMP, serum or plasm a eGFR male 99 mL/mi n/1.7 3m_sq uared >60 Not Available [facility] - Manual Order Only [address], [place], [address], 12/16/2018 00:14:06 12/12/19 19 12/11/2018 CMP, serum or plasm a eGFR male descent 115 mL/mi n/1.7 3m_sq uared >60 Not Available [facility] - Manual Order Only [address], [place], [address], 12/16/2018 00:14:06 12/12/19 19 12/11/2018 TSH, serum or plasm a thyroid stimulating hormone 1.220 ulu/m L 0.400- 4.500 Not Available [facility] - Manual Order Only [address], [place], [address], 12/16/2018 00:14:07 12/12/19 19 12/11/2018 HbA1c (hemo globi n A1c), blood HbA1C 9.8 % <5.7 high For someo ne witho ut known diabe mayda, a hemog lobin A1c value of 6.5% or great er indic ates that they may have diabe mayda, and this shoul d be confi rmed with a follo w-up test. For someo ne with known diabe mayda, a value <7% indic ates that their diabe mayda is well contr olled and a value great er than or equal to 7% indic ates subop timal contr ol. A1c targe ts shoul d be indiv idual ized based on durat ion of diabe mayda, age, comor bid condi tions , and other consi derat ions. Curre ntly, no conse nsus exist s for use of hemog lobin A1c for diagn osis of diabe mayda for child fanny. Not Available [facility] - Manual Order Only [address], [place], [address], 12/16/2018 00:14:07 12/12/19 19 12/11/2018 HbA1c (hemo globi n A1c), blood estimated average glucose 235 mg/dL <117 high The estim ated avera ge gluco se value is an adjun ct to the treat ment of both Type I and Type II Diabe mayda. It is not inten ded for the diagn osis or risk asses sment of patie nts witho ut diabe mayda. (Refe rence : Gaye MARQUEZ et al. Diabe mayda Care 2008; 31:14 73-14 78). Not Available [facility] - Manual Order Only [address], [place], [address], 12/16/2018 00:14:07 12/12/19 19 12/11/2018 mpo (myel opero xidas e) Ab, quant itati ve, serum myeloperoxid ase 345 pmol/ L <470 Based on a high risk sub-p opula tion (N=92 0) defin ed as ambul atory stabl e patie nts witho ut acute coron elina syndr ome who under went elect tim diagn ostic coron elina angio graph y (1) and a refer ence range study of appar ently healt hy donor s, we have defin ed the follo wing cut-o ffs for MPO: A cut-o ff of <470 pmol/ L defin es an 'appa rentl y healt hy' popul ation at lower risk for a cardi ovasc ular event , 470-5 39 pmol/ L defin es a popul ation at inter media te risk for a cardi ovasc ular event (2-fo ld incre ased risk of MACE at 3 years ), and > = 540 pmol/ L defin es a popul ation with an incre ased risk for a cardi ovasc ular event . (Refe rence : 1. Jose et al. Am J Cardi ol. 2013; 111:4 65-47 0 and perso nal commu nicat ion with Jose et al). This test is perfo rmed by a turbi dimet delmar immun oassa y metho d. This test was devel oped and its perfo rmanc e rohit cteri stics deter mined by the [facility] It has not been clear ed or appro cornelius by the U.S. FDA. The [facility] is regul ated under Clini jorge alberto Labor atory Impro vemen t Amend ments (CLIA ) as quali fied to perfo rm high- compl exity testi ng. This test is used for clini jorge alberto purpo ses. It shoul d not be regar ded as inves tigat ional or for resea rch. Not Available [facility] - Manual Order Only [address], [place], [address], 12/16/2018 00:14:07 12/12/19 19 12/11/2018 vitam in D, 25-hy droxy , total , serum vitamin D 25 hydroxy by lc-MS/MS 34.7 NG/mL >29.9 Vitam in D, 25-Hy droxy repor ts migue ntrat ions of two commo n forms , 25-OH D2 and 25-OH D3. 25-OH D3 indic ates both endog enous produ ction and suppl ement ation . 25-OH D2 is an indic ator of exoge nous sourc es, such as diet or suppl ement ation . Thera py is based on measu remen t of Total 25-OH D, with level s <20 ng/mL indic ative of Vitam in D defic iency , while level s betwe en 20 ng/mL and 30 ng/mL sugge st insuf ficie ncy. Optim al level s are >=30 ng/mL . Vitam in-D is fat-s olubl e and there fore inadv erten t or inten gio l inges tion of exces sivel y high amoun ts could be toxic . Studi es in child fanny and adult s sugge st blood level s would need to excee d 150 ng/ml befor e there is any migue rn. Rudy BAL, Brian salinas [place], Cruz off-f errsandra i KING, et al. Evalu ation , treat ment, and preve ntion of vitam in D defic iency : an Endoc rine Socie ty clini jorge alberto pract ice guide line. J Clin Endoc rinol Metab . 2011; 96(7) :1911 -30.T his test is perfo rmed by sixto love Chrom atogr aphy- Tande m Mass Spect romet ry (LC-M S/MS) methjamila love. This test was devel oped and its perfo rmanc e rohit cteri stics deter mined by the [facility]. It has not been clear ed or appro cornelius by the U.S. FDA. The [facility] is regul ated under Clini jorge alberto Labor atory Impro vemen t Amend ments (CLIA ) as quali fied to perfo rm high- compl exity testi ng. This test is used for clini jorge alberto purpo ses. It shoul d not be regar ded as inves tigat ional or for resea rch. Not Available [facility] - Manual Order Only [address], [place], [address], 12/16/2018 00:14:08 12/12/1912/11/2018 nmr lipop rofil e, serum LDL-P 1452 nmol/ L <935 high Relat tim risk: Optim al <935; Moder ate 935-1 816; High >1816 nmol/ L. Refer ence range is 592-2 404 nmol/ L. This test is perfo rmed by a Nucle sandra Ruize tic Reson ancsweta methjamila love. This test was devel oped and its perfo rmanc e rohit cteri stics deter mined by The [facility] It has not been clear ed or appro cornelius by the U.S. FDA. The [facility] is regul ated under Clini jorge alberto Labor atory Impro vemen t Amend ments (CLIA ) as quali fied to perfo rm high- compl exity testi ng. This test is used for clini jorge alberto purpo ses. It shoul d not be regar ded as inves tigat ional or for resea rch. Not Available [facility] - Manual Order Only [address], [place], [address], 12/16/2018 00:14:08 12/12/19 19 12/11/2018 nmr lipop rofil e, serum small LDL-P 783 nmol/ L <467 high Relat tim risk: Optim al <467; Moder ate 467-8 20; High >820 nmol/ L. Refer ence range is <1408 nmol/ L. Not Available [facility] - Manual Order Only [address], [place], [address], 12/16/2018 00:14:08 12/12/1912/11/2018 nmr lipop rofil e, serum LDL size 20.2 nm >20.5 low Relat tim risk: Optim al >20.5 ; High <20.6 nm. Refer ence range is 20.0- 22.3 nm. Not Available [facility] - Manual Order Only [address], [place], [address], 12/16/2018 00:14:08 12/12/1912/11/2018 nmr lipop rofil e, serum HDL-P 38.5 umol/ L >32.8 Relat tim risk: Optim al >32.8 ; Moder ate 29.2- 32.8; High <29.2 umol/ L. Refer ence range is 21.1- 43.4 umol/ L. Not Available [facility] - Manual Order Only [address], [place], [address], 12/16/2018 00:14:08 12/12/1912/11/2018 nmr lipop rofil e, serum large HDL-P <3.0 umol/ L >7.2 low Relat tim risk: Optim al >7.2; Moder ate 5.3-7 .2; High <5.3 umol/ L. Refer ence range is >3.5 umol/ L. Not Available [facility] - Manual Order Only [address], [place], [address], 12/16/2018 00:14:08 12/12/19 19 12/11/2018 nmr lipop rofil e, serum HDL size 8.2 nm >9.0 low Relat tim risk: Optim al >9.0; Moder ate 8.7-9 .0; High <8.7 nm. Refer ence range is 8.3-1 0.5 nm. Not Available [facility] - Manual Order Only [address], [place], [address], 12/16/2018 00:14:08 12/12/1912/11/2018 nmr lipop rofil e, serum large VLDL-P 6.4 nmol/ L <3.7 high Relat tim risk: Optim al <3.7; Moder ate 3.7-6 .1; High >6.1 nmol/ L. Refer ence range is <16.0 nmol/ L. Not Available [facility] - Manual Order Only [address], [place], [address], 12/16/2018 00:14:08 12/12/1912/11/2018 nmr lipop rofil e, serum VLDL size 51.6 nm <47.1 high Relat tim risk: Optim al <47.1 ; Moder ate 47.1- 49.0; High >49.0 nm. Refer ence range is 41.1- 61.7 nm. Not Available [facility] - Manual Order Only [address], [place], [address], 12/16/2018 00:14:08 12/12/1912/11/2018 urina lysis , dipst ick color YELLOW colorl ess-da rk yellow Not Available [facility] - Manual Order Only [address], [place], [address], 12/16/2018 00:14:08 12/12/1912/11/2018 urina lysis , dipst ick turbidity CLEAR clear Not Available [facility] - Manual Order Only [address], [place], [address], 12/16/2018 00:14:08 12/12/1912/11/2018 urina lysis , dipst ick glucose 1000 mg/dL <30 high Not Available [facility] - Manual Order Only [address], [place], [address], 12/16/2018 00:14:08 12/12/19 19 12/11/2018 urina lysis , dipst ick bilirubin <0.5 mg/dL <0.5 Not Available [facility] - Manual Order Only [address], [place], [address], 12/16/2018 00:14:08 12/12/1912/11/2018 urina lysis , dipst ick ketones NEGATI VE negati ve Not Available [facility] - Manual Order Only [address], [place], [address], 12/16/2018 00:14:08 12/12/1912/11/2018 urina lysis , dipst ick specific gravity 1.024 1.005- 1.035 Not Available [facility] - Manual Order Only [address], [place], [address], 12/16/2018 00:14:08 12/12/19 19 12/11/2018 urina lysis , dipst ick hemoglobin/b lood NEGATI VE negati ve Not Available [facility] - Manual Order Only [address], [place], [address], 12/16/2018 00:14:08 12/12/19 19 12/11/2018 urina lysis , dipst ick pH 6.5 5.0-8. 0 Not Available [facility] [address], [place], [address], 12/16/2018 00:14:08 12/12/19 19 12/11/2018 urina lysis , dipst ick protein 20 mg/dL <21 Altho ugh total prote in urina ry secre tion does not usual ly excee d 150 mg/24 hours or 10 mg/dL in any singl e speci men, trace amoun ts (10-2 0 mg/dL ) of prote in in urine sampl es can be obser cornelius in non-d iseas ed state s, such as migue ntrat ed urine , dehyd ratio n or after vigor ous exerc ise. Pleas e consi josé miguel the patie nt's clini jorge alberto statu s when inter preti ng resul ts. Not Available [facility] - Manual Order Only [address], [place], [address], 12/16/2018 00:14:08 12/12/19 19 12/11/2018 urina lysis , dipst ick urobilinogen <2 mg/dL <2 Not Available [facility] - Manual Order Only [address], [place], [address], 12/16/2018 00:14:08 12/12/19 19 12/11/2018 urina lysis , dipst ick nitrite NEGATI VE negati ve Not Available [facility] - Manual Order Only [address], [place], [address], 12/16/2018 00:14:08 12/12/19 19 12/11/2018 urina lysis , dipst ick leukocyte esterase <25 andreia/u L <25 Not Available [facility] - Manual Order Only [address], [place], [address], 12/16/2018 00:14:08 12/12/19 19 12/11/2018 urina lysis , dipst ick UWBC NONE cells /hpf 0-5 Not Available [facility] - Manual Order Only [address], [place], [address], 12/16/2018 00:14:08 12/12/19 19 12/11/2018 urina lysis , dipst ick URBC 0-2 cells /hpf 0-2 Not Available [facility] - Manual Order Only [address], [place], [address], 12/16/2018 00:14:08 12/12/1912/11/2018 urina lysis , dipst ick epithelial cells NONE cells /hpf 0-5 Not Available [facility] - Manual Order Only [address], [place], [address], 12/16/2018 00:14:08 12/12/1912/11/2018 urina lysis , dipst ick bacteria NONE hpf none Not Available [facility] - Manual Order Only [address], [place], [address], 12/16/2018 00:14:08 12/12/1912/11/2018 urina lysis , dipst ick hyaline casts NONE cells /lpf <10 Not Available [facility] - Manual Order Only [address], [place], [address], 12/16/2018 00:14:08 12/12/1912/11/2018 visua l acuit y* Status if not performed Patien t satisf ied w/ anothe r provid er Not Available [facility] [address] , [place], [address], 12/11/2018 09:26:33 12/12/1912/11/2018 elect vasquez elmore am Vent Rate 83 Not Available [facility] [address], [place], [address], 12/11/2018 09:26:32 12/12/1912/11/2018 elect vasquez elmore am TX Inst 208 Not Available [facility] [address], [place], [address], 12/11/2018 09:26:32 12/12/1912/11/2018 elect vasquez elmore am QRS dur 86 Not Available [facility] [address], [place], [address], 12/11/2018 09:26:32 12/12/1912/11/2018 elect vasquez diogr am QT/QTc 357/39 7 Not Available [facility] [address] [address], [place], [address], 12/11/2018 09:26:32 12/12/19 19 12/11/2018 elect vasquez diogr am P-R-T 24 31 41 Not Available [facility] [address] [place] [address], [place], [address], 12/11/2018 09:26:32 12/12/1912/11/2018 ghassan metry FVC 3.65 Not Available [facility] [address] [address], [place], [address], 12/11/2018 09:26:32 12/12/1912/11/2018 ghassan metry FEV1 3.19 Not Available [facility] [address] [place] [address], [place], [address], 12/11/2018 09:26:32 12/12/1912/11/2018 ghassan metry FEV1/FVC (%) 87.5 Not Available [facility] [address] [address], [place], [address], 12/11/2018 09:26:32 12/12/1912/11/2018 ghassan metry [id number] (L/s) 4.79 Not Available [facility] [address] [address], [place], [address], 12/11/2018 09:26:32 12/12/1912/11/2018 ghassan metry PEF (L/s) 6.73 Not Available [facility] [address] [address], [place], [address], 12/11/2018 09:26:32 12/12/19 19 12/11/2018 ghassan metry FET (s) 5.87 Not Available [facility] [address] [address], [place], [address], 12/11/2018 09:26:32 12/12/1912/11/2018 audio gram 500hz- LEFT 30 Not Available [facility] [address], [place], [address], 12/11/2018 09:26:32 12/12/1912/11/2018 audio gram 500hz- RIGHT 30 Not Available [facility] [address], [place], [address], 12/11/2018 09:26:32 12/12/1912/11/2018 audio gram 1000hz- LEFT 30 Not Available [facility] [address], [place], [address], 12/11/2018 09:26:32 12/12/1912/11/2018 audio gram 1000hz- RIGHT 30 Not Available [facility] [address], [place], [address], 12/11/2018 09:26:32 12/12/1912/11/2018 audio gram 2000hz- LEFT 30 Not Available [facility] [address], [place], [address], 12/11/2018 09:26:32 12/12/1912/11/2018 audio gram 2000hz- RIGHT 30 Not Available [facility] [address], [place], [address], 12/11/2018 09:26:32 12/12/1912/11/2018 audio gram 4000hz- LEFT 40 Not Available [facility] [address], [place], [address], 12/11/2018 09:26:32 12/12/1912/11/2018 audio gram 4000hz- RIGHT 30 Not Available [facility] [address], [place], [address], 12/11/2018 09:26:32 12/12/1912/11/2018 audio gram 6000hz- LEFT 40 Not Available [facility] [address], [address], 12/11/2018 09:26:32 12/12/1912/11/2018 audio gram 6000hz- RIGHT 30 Not Available [facility] [address], [address], 12/11/2018 09:26:32 12/12/1912/11/2018 audio gram 8000hz- LEFT 60 Not Available [facility] [address], [address], 12/11/2018 09:26:32 12/12/1912/11/2018 audio gram 8000hz- RIGHT 60 Not Available [facility] [address], [address], 12/11/2018 09:26:32 12/12/1912/11/2018 body compo sitio n nabeel sis (PROC ) Status if Not Performed Other: see note Not Available [facility] [address] [place] [address], [address], 12/11/2018 09:26:31 12/12/1912/11/2018 mini menta l state exam* Status if not performed Other: see note Not Available [facility] [address] [place] [address], [address], 12/11/2018 09:26:31 12/12/1912/11/2018 funct ional asses sment scree roc* Gender Men Not Available [facility] [address], [address], 12/11/2018 09:26:31 12/12/1912/11/2018 funct ional asses sment scree roc* Result Dissat isfied Not Available [facility] [address], [address], 12/11/2018 09:26:31 12/12/1912/11/2018 epwor th sleep iness scale * Total Score 12 Not Available [facility] [address] [place] [address], [place], [address], 12/11/2018 09:26:31 12/12/19 19 12/11/2018 epwor th sleep iness scale * Indication 10-12 Border line Not Available [facility] [address] [place] [address], [place], [address], 12/11/2018 09:26:31 12/12/19 19 12/11/2018 cano anxie ty inven tory* Total Score 2 Not Available [facility] [address] [place] [address], [place], [address], 12/11/2018 09:26:30 12/12/19 19 12/11/2018 cano anxie ty inven tory* Indication 0-7 Minim al Anxiet y Not Available [facility] [address] [place] [address], [address], 12/11/2018 09:26:30 12/12/19 19 12/11/2018 (SAMMIE) ankle brach ial index * ARM- Right 130 Not Available [facility] t Office [address] [place] [address], [address], 12/11/2018 09:26:30 12/12/19 19 12/11/2018 (SAMMIE) ankle brach ial index * ARM- Left 130 Not Available [facility] [address] [place] [address], [address], 12/11/2018 09:26:30 12/12/19 19 12/11/2018 (SAMMIE) ankle brach ial index * LEG- Right 112 Not Available [facility] t Office [address] [place] [address], [place], [address], 12/11/2018 09:26:30 12/12/19 19 12/11/2018 (SAMMIE) ankle brach ial index * LEG- Left 112 Not Available [facility] [address] [place] [address], [place], [address], 12/11/2018 09:26:30 12/12/19 19 12/11/2018 (SAMMIE) ankle brach ial index * SAMMIE PRESSURE- Right 0.9 Not Available [facility] ct [facility] [address], [address], 12/11/2018 09:26:30 12/12/19 19 12/11/2018 (SAMMIE) ankle brach ial index * SAMMIE PRESSURE- Left 0.9 Not Available [facility] [address] [address], [place], [address], 12/11/2018 09:26:30 12/26/19 19 12/25/2018 fecal occul t blood , immun oassa y, stool iFOB negati ve Not Available [facility] [address] [place] [address], [address], 12/25/2018 09:57:43 04/26/1904/27/2019 lipid panel , serum cholesterol, total 132 mg/dL <200 normal Not Available [facility] [address], [place], [address], 04/27/2019 07:40:19 04/26/1904/27/2019 lipid panel , serum HDL cholesterol 42 mg/dL > or = 40 normal Not Available [facility] [address], [place], [address], 04/27/2019 07:40:19 04/26/1904/27/2019 lipid panel , serum triglyceride s 267 mg/dL <150 high If a non-f astin g speci men was colle cted, consi josé miguel repea t trigl yceri de testi ng on a fasti ng speci men if clini mateusz indic ated. Savage nolasco et al. J. of Clin. Lipid ol. 2015; 9:129 -169. Not Available [facility] [address], [place], [address], 04/27/2019 07:40:19 04/26/19 20 04/27/2019 lipid panel , serum LDL-choleste rol 59 mg/dL _(jorge alberto c) normal Refer ence range : <100 Leobardo able range <100 mg/dL for prima ry preve ntion ; <70 mg/dL for patie nts with CHD or diabe tic patie nts with > or = 2 CHD risk facto rs. LDL-C is now calcu lated using the Chantelle n-Hop kins calcu kodak n, which is a valid ated novel metho d provi ding cha r accur acy than the Fried naheed equat ion in the estim ation of LDL-C . Chantelle maria SS et al. TERENCE. 2013; 310(1 9): 2061- 2068 (http ://ed ucati on.deltamethod dawn247 [employer]. [employer]/f aq/FA Q164) Not Available [facility] [address] [facility] [place], [address], 04/27/2019 07:40:19 04/26/1904/27/2019 lipid panel , serum chol/HDLC ratio 3.1 (calc ) <5.0 normal Not Available [facility] [address] [facility] [place], [address], 04/27/2019 07:40:19 04/26/1904/27/2019 lipid panel , serum non HDL cholesterol 90 mg/dL _(jorge alberto c) <130 normal For patie nts with diabe mayda plus 1 major ASCVD risk facto r, treat ing to a non-H DL-C goal of <100 mg/dL (LDL- C of <70 mg/dL ) is consi dered a thera peuti c optio n. Not Available [facility] [address] [facility], [place], [address], 04/27/2019 07:40:19 04/26/1904/27/2019 CMP, serum or plasm a glucose 205 mg/dL 65-99 high Fasti ng refer ence inter itz For someo ne witho ut known diabe mayda, a gluco se value >125 mg/dL indic ates that they may have diabe mayda and this shoul d be confi rmed with a follo w-up test. Not Available [facility] [address] [facility] [place], [address], 04/27/2019 07:40:19 04/26/19 20 04/27/2019 CMP, serum or plasm a urea nitrogen (BUN) 10 mg/dL 7-25 normal Not Available [facility] [address] [facility] [place], [address], 04/27/2019 07:40:19 04/26/1904/27/2019 CMP, serum or plasm a creatinine 0.73 mg/dL 0.70-1 .25 normal For patie nts >49 years of age, the refer ence limit for Creat inine is appro ximat gaudencio 13% highe r for peopl e ident ified as Afric an-Am agnes n. Not Available [facility] [address] [facility] [place], [address], 04/27/2019 07:40:19 04/26/1904/27/2019 CMP, serum or plasm a eGFR non-afr. indian 100 mL/mi n/1.7 3m2 > or = 60 normal Not Available [facility] [address] [place], [address], 04/27/2019 07:40:19 04/26/19 20 04/27/2019 CMP, serum or plasm a eGFR 116 mL/mi n/1.7 3m2 > or = 60 normal Not Available [facility] [address] [place], [address], 04/27/2019 07:40:19 04/26/1904/27/2019 CMP, serum or plasm a BUN/creatini ne ratio NOT APPLIC ABLE (calc ) 6-22 Not Available [facility] [address] [facility] [place], [address], 04/27/2019 07:40:19 04/26/19 20 04/27/2019 CMP, serum or plasm a sodium 136 mmol/ L 135-14 6 normal Not Available [facility] [address] [facility] [place], [address], 04/27/2019 07:40:19 04/26/19 20 04/27/2019 CMP, serum or plasm a potassium 5.5 mmol/ L 3.5-5. 3 high Not Available [facility] [address] [facility] [place], [address], 04/27/2019 07:40:19 04/26/19 20 04/27/2019 CMP, serum or plasm a chloride 99 mmol/ L 98-110 normal Not Available [facility] [address] [facility] [place], [address], 04/27/2019 07:40:19 04/26/19 20 04/27/2019 CMP, serum or plasm a carbon dioxide 32 mmol/ L 20-32 normal Not Available [facility] [address] [facility] [place], [address], 04/27/2019 07:40:19 04/26/19 20 04/27/2019 CMP, serum or plasm a calcium 9.9 mg/dL 8.6-10 .3 normal Not Available [facility] [place], [address], 04/27/2019 07:40:19 04/26/19 20 04/27/2019 CMP, serum or plasm a protein, total 7.0 g/dL 6.1-8. 1 normal Not Available [facility] [address] [facility] [place], [address], 04/27/2019 07:40:19 04/26/19 20 04/27/2019 CMP, serum or plasm a albumin 4.3 g/dL 3.6-5. 1 normal Not Available [facility] [address] [place], [address], 04/27/2019 07:40:19 04/26/1904/27/2019 CMP, serum or plasm a globulin 2.7 g/dL_ (calc ) 1.9-3. 7 normal Not Available [facility] [address] [facility] [place], [address], 04/27/2019 07:40:19 04/26/1904/27/2019 CMP, serum or plasm a albumin/glob ulin ratio 1.6 (calc ) 1.0-2. 5 normal Not Available [facility] [address] [facility] [place], [address], 04/27/2019 07:40:19 04/26/1904/27/2019 CMP, serum or plasm a bilirubin, total 0.4 mg/dL 0.2-1. 2 normal Not Available [facility] [address] [facility] [place], [address], 04/27/2019 07:40:19 04/26/1904/27/2019 CMP, serum or plasm a alkaline phosphatase 81 U/L 35-144 normal Not Available [facility] [employer] [facility] [address] [facility] [place], [address], 04/27/2019 07:40:19 04/26/1904/27/2019 CMP, serum or plasm a AST 17 U/L 10-35 normal Not Available [facility] [place], [address], 04/27/2019 07:40:19 04/26/1904/27/2019 CMP, serum or plasm a ALT 24 U/L 9-46 normal Not Available [facility] [address] [facility] [place], [address], 04/27/2019 07:40:19 04/26/1904/26/2019 HbA1c (hemo globi n A1c), blood HbA1C 8.7 Not Available [facility] [address] [place], [place] [address] , [place], [address], 04/26/2019 13:09:58 04/26/1904/26/2019 CBC w/ auto diff WBC 7.0 K/uL 4.6-10 .2 Not Available [facility] [address] [place] [address], [address], 04/26/2019 13:10:23 04/26/1904/26/2019 CBC w/ auto diff lym 2.4 K/uL 0.6-3. 4 Not Available [facility] [address] [place] [address], [place], [address], 04/26/2019 13:10:23 04/26/1904/26/2019 CBC w/ auto diff lym % 33.8 %L 10.0-5 0.0 Not Available [facility] [address] [place] [address], [address], 04/26/2019 13:10:23 04/26/1904/26/2019 CBC w/ auto diff *mid 0.6 K/uL 0.0-0. 9 Not Available [facility] [address] [place] [address], [address], 04/26/2019 13:10:23 04/26/1904/26/2019 CBC w/ auto diff *mid % 8.5 %M 0.0-12 .0 Not Available [facility] [address] [place] [address], [address], 04/26/2019 13:10:23 04/26/1904/26/2019 CBC w/ auto diff gran 4.0 K/uL 2.0-6. 9 Not Available [facility] [address] [place] [address], [address], 04/26/2019 13:10:23 04/26/1904/26/2019 CBC w/ auto diff gran% 57.7 %g 37.0-8 0.0 Not Available [facility] [address] [place] [address], [address], 04/26/2019 13:10:23 04/26/1904/26/2019 CBC w/ auto diff RBC 5.09 M/uL 4.04-5 .48 Not Available [facility] [address] [place] [address], [address], 04/26/2019 13:10:23 04/26/1904/26/2019 CBC w/ auto diff HGB 14.3 g/dL 12.2-1 5. Not Available [facility] [address] [place] [address], [address], 04/26/2019 13:10:23 04/26/1904/26/2019 CBC w/ auto diff HCT 43.7 % 37.7-4 7.9 Not Available [facility] [address] [place] [address], [address], 04/26/2019 13:10:23 04/26/1904/26/2019 CBC w/ auto diff MCV 85.8 fL 80.0-9 7.0 Not Available [facility] [address] [place] [address], [address], 04/26/2019 13:10:23 04/26/1904/26/2019 CBC w/ auto diff MCH 28.1 pg 27.0-3 1.2 Not Available [facility] [address] [place] [address], [address], 04/26/2019 13:10:23 04/26/1904/26/2019 CBC w/ auto diff MCHC 32.7 g/dL 31.8-3 5.4 Not Available [facility] [address] [place] [address], [address], 04/26/2019 13:10:23 04/26/1904/26/2019 CBC w/ auto diff RDW 15.8 % 11.6-1 4.8 high Not Available [facility] [address] [address], [place], [address], 04/26/2019 13:10:23 04/26/19 20 04/26/2019 CBC w/ auto diff plt 237 K/uL 142.-4 24. 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 A negat tim resul t does not rule out the possi bilit y of COVID -19 and shoul d not be used as the sole basis for treat ment or patie nt manag ement decis ions. If COVID -19 is still suspe cted, based on expos ure histo ry toget her with other clini jorge alberto findi ngs, re-te sting shoul d be consi dered in consu ltati on with publi c healt h autho ritie s. Labor atory test resul ts shoul d alway s be consi dered in the meghan xt of clini jorge alberto obser vatio ns and epide miolo gical data in [facility] g a final diagn osis and patie nt manag ement decis ions. Gee e osiris w the Fact Sheet s and FDA autho rized label ing avail able for healt h care provi ders and patie nts using the follo wing websi mayda: https ://ww w.que stdia gnost ics.c om/ho me/Co vid-1 9/HCP /NAAT /fact -shee t2 https ://ww w.que stdia gnost ics.c om/ho me/Co vid-1 9/Pat ients /NAAT / fact- sheet 2 This test has been autho rized by the FDA under an Emerg ency Use Autho rizat ion (EUA) for use by autho rized labor atori es. Due to the curre nt publi c healt h emerg ency, [facility] is recei ving a high volum e of sampl es from a wide varie ty of swabs and media for COVID -19 testi ng. In order to serve patie nts durbenny g this publi c healt h crisi s, sampl es from appro priat e clini jorge alberto sourc es are being teste d. Negat tim test resul ts deriv ed from speci mens recei cornelius in non-c ommer ciall y manuf actur ed viral colle ction and trans port media , or in media and sampl e colle ction kits not yet autho rized by FDA for COVID -19 testi ng shoul d be cauti ously evalu ated and the patie nt poten tiall y subje cted to extra preca ution s such as addit ional clini jorge alberto monit oring , inclu ding colle ction of an addit ional speci men. Metho dolog y: Nucle ic Acid Ampli ficat ion Test (NAAT ) inclu shruti PCR or TMA Addit ional infor aubrey maria about COVID -19 can be found at the [facility] websi te: www.Q uestD iagno Auxmoneys .com/ Covid 19. Not Available [facility] [address] [facility], [place], [address], 09/26/2019 07:05:23 Result Notes None recorded. Problems Name Problem SNOMED Code Status Onset Date Resolution Date Notes Provider Name and Address Organization Details Recorded Time Diabetes mellitus 25685209 Active 2017 Last Dennison III, MD [address] [address], [place], [address], [facility] 8 09:27:57 Seasonal allergy 216611695 Active 2017 Last Dennison III, MD [address], [address], [facility] 8 09:27:59 Mixed hypercholes terolemia and hypertrigly ceridemia 724642169 Active 2017 Last Dennison III, MD [address], [address], [facility] 8 09:28:01 Vitamin D deficiency 49503518 Active 2017 Last Dennison III, MD [address], [address], [facility] 8 09:28:03 Allergic rhinitis 07547812 Active 2017 Last Dennison III, MD [address], [address], [facility] 8 09:28:08 Essential hypertensio n 69240411 Active 2017 Last Dennison III, MD [address], [address], [facility] 8 09:28:09 Plantar wart of left foot [id number] 9102 Active 2017 Last Dennison III, MD [address], [address], [facility] 8 09:28:14 Coronary arterioscle rosis in [place] artery 0778853985978 Active 2017 Last Dennison III, MD [address], [address], [facility] 8 09:28:47 Sinusitis 80012873 Active 2018 [facility] 9 09:55:32 Alcoholism 0449302 Active 2018 Last Dennison III, MD [address], [address], [facility] 9 11:28:50 Sleep apnea 37562072 Active 2018 Last Dennison III, MD [address], [address], [facility] 9 12:22:22 Problem Notes None recorded. Procedures Surgical History Date Name Laterality Status Provider Name and Address Organization Details Recorded Time 9 Fall Risk completed [facility] 12/25/2018 08:15:54 9 Depression Screening completed [facility] 12/25/2018 08:15:54 9 Procedure completed Last Dennison III, MD [address], [address], [facility] 12/26/2018 09:18:28 9 CHERELLE SPRING completed [facility] 12/25/2018 08:15:54 9 Alcohol Use Screening completed [facility] 12/25/2018 08:15:54 8 Fall Risk completed [facility] 10/04/2017 08:37:14 8 Procedure completed Last Dennison III, MD [address], [address], [facility] 10/05/2017 19:23:22 8 CHERELLE SPRING completed [facility] 10/04/2017 08:37:14 8 Allergy Injection completed [facility] 03/08/2017 08:37:22 7 Colonoscopy completed Last Dennison III, MD [address], [address], [facility] 03/08/2017 11:04:51 Imaging Results None recorded. Procedure Notes None recorded. Medical Equipment None Reported. Allergies No known drug allergies Medications Name Sig Start Date Stop Date Status Note LastModified by Organization Details LastModified Time trazodone 50 mg tablet TAKE ONE TABLET BY MOUTH EVERY DAY 2019 active Not Available Not Available Not Avai lable sildenafil 50 mg tablet TAKE 1 TABLET BY MOUTH NEEDED 1 HOUR BEFORE SEXUAL ACTIVITY active Not Available Not Available No t Available azithromyci n 250 mg tablet 03/13 completed Not Available Not Available Not Available benzonatate 200 mg capsule Take 1 capsule twice a day by oral route for 15 days. 03/13 completed Not Available Not Available Not Available diphenoxyla te-atropine 2.5 mg-0.025 mg tablet TAKE 1 TABLET BY MOUTH EVERY EACH LOOSE STOOL *MAX OF 4 TABLETS DAILY* active Not Available Not Available No t Available clopidogrel 75 mg tablet TAKE 1 TABLET BY MOUTH EVERY DAY active Not Available Not Available No t Available simvastatin 40 mg tablet TAKE 1 TABLET BY MOUTH AT BEDTIME FOR CHOLESTER OL active Not Available Not Available No t Available dicyclomine 20 mg tablet 03/13 completed Not Available Not Available Not Available benzonatate 100 mg capsule 03/13 completed Not Available Not Available Not Available simvastatin 20 mg tablet TAKE 1 TABLET BY MOUTH AT BEDTIME 03/13 completed Not Available Not Available Not Available metformin 1,000 mg tablet TAKE 1 TABLET BY MOUTH TWICE A DAY active Not Available Not Available No t Available gabapentin 100 mg capsule active Not Available Not Available Not Available lisinopril 40 mg tablet TAKE 1 TABLET BY MOUTH EVERY DAY 2021 active Not Available Not Available Not Avai lable cefdinir 300 mg capsule 2 tabs po qd active Not Available Not Available No t Available amoxicillin 875 mg-potassiu m clavulanate 125 mg tablet 03/13 completed Not Available Not Available Not Available ezetimibe 10 mg tablet TAKE 1 TABLET BY MOUTH EVERY DAY active Not Available Not Available No t Available rosuvastati n 20 mg tablet active Not Available Not Available Not Available BD Ultra-Fine Mini Pen Needle 31 gauge x 05/06 active Not Available Not Available Not Available Imodium Multi-Sympt om Relief 2 mg-125 mg tablet 03/13 completed Not Available Not Available Not Available [facility] 10 billion cell-200 mg sprinkle capsule 03/13 completed Not Available Not Available Not Available Sree Krysta Lancets 33 gauge active Not Available Not Available Not Available BD Ultra-Fine Mercedes Pen Needle 32 gauge x /32 USE 1 PEN NEEDLE THREE TIMES DAILY 2018 active Not Available Not Available Not Avai lable Accu-Chek Rena Plus test strips TEST 4 TIMES DAILY DIRECTED active Not Available Not Available No t Available Victoza 3-Juan 0.6 mg/0.1 mL (18 mg/3 mL) subcutaneou s pen injector INJECT 1.8 MG UNDER THE SKIN ONCE DAILY 2021 active Not Available Not Available Not Avai lable Toujeo SoloStar U-300 Insulin 300 unit/mL (1.5 mL) subcutaneou s pen INJECT 100 UNITS SUBCUTANE OUSLY EVERY DAY active Not Available Not Available No t Available FreeStyle Chris 14 Day [place] active Not Available Not Available N ot Available FreeStyle Chris 14 Day Sensor kit active Not Available Not Available Not Available Vitals Date Recorded Body height Body mass index (BMI) Body weight Oxygen saturation Oxygen saturation in Arterial blood by Pulse oximetry Heart rate Systolic blood pressure Diastolic blood pressure Provider Name and Address Organization Details Last Updated DateTime 9 182.88 cm 32.7 kg/m2 976508. 76 g 100 % 100 % 68 /min 130 mm[Hg] 70 mm[Hg] Astrid [facility] 9 09:27:40 Date Recorded Body height Body mass index (BMI) Body weight Heart rate Respiratory rate Systolic blood pressure Diastolic blood pressure Provider Name and Address Organization Details Last Updated DateTime 9 182.88 cm 32.7 kg/m2 830992. 76 g 72 /min 18 /min 130 mm[Hg] 70 mm[Hg] Last Dennison III, MD [address], [address] [place] [address] Internal Med 9 10:16:13 Date Recorded Body height Body mass index (BMI) Body weight Body temperature Systolic blood pressure Diastolic blood pressure Provider Name and Address Organization Details Last Updated DateTime 9 182.88 cm 32.8 kg/m2 282519. 35 g 99.3 [degF] 130 mm[Hg] 80 mm[Hg] Astrid Jones [facility] 9 08:16:16 Date Recorded Heart rate Oxygen saturation Oxygen saturation in Arterial blood by Pulse oximetry Respiratory rate Provider Name and Address Organization Details Last Updated DateTime 12/25/2018 84 /min 92 % 92 % 18 /min Last Dennison III, MD [address], [address] [place] [address] 9 12:21:27 Date Recorded Body height Body mass index (BMI) Body weight Oxygen saturation Oxygen saturation in Arterial blood by Pulse oximetry Systolic blood pressure Diastolic blood pressure Provider Name and Address Organization Details Last Updated DateTime 0 182.88 cm 30.5 kg/m2 056052. 28 g 98 % 98 % 110 mm[Hg] 70 mm[Hg] Josie Vogel [facility] 0 11:24:25 Date Recorded Heart rate Respiratory rate Systolic blood pressure Diastolic blood pressure Provider Name and Address Organization Details Last Updated DateTime 04/26/2019 72 /min 18 /min 120 mm[Hg] 64 mm[Hg] Last Dennison III, MD [address], [address] [facility] 04/26/2019 11:34:36 Social History Question Answer Notes LastModified by Organizat ion Details LastModified Time Tobacco Smoking Status Never Smoker Not Available [facility] 12/25/2019 03:49:25 What Was The Date Of Your Most Recent Tobacco Screening? 10/05/2017 [id number] Information not available 12/25/2019 Sex: Unknown Functional Status None recorded. Mental Status None recorded. Family History Relationship Description Onset Age of this Age Resolved Age Notes LastModified by Organization Details LastModified Time Father Diabetes mellitus 78 [email or web address] Not available 03/08 11:05:48 Notes:FAMILY Hx: Mother at age 81 with hypertension and elevations in cholesterol. His father at age 78. He had diabetes type 2, but of small bowel obstruction ultimately. The patient s siblings include a brother who at age 61 with history of frontotemporal dementia. The patient does have a sister who is now age now 51, alive and well. His children include two daughters ages 33 and 30, both alive and well. No grandchildren at this point. The family history is otherwise negative or unremarkable or unknown by the patient. Medical History No medical history recorded. Immunizations Vaccine Type Date Status Note Provider Nam e and Address Organization Details Recorded Time Tdap 9 completed Last Dennison III, MD [address], [address] 03/08/2017 10:58:46 Pneumococcal conjugate PCV 13 5 completed Last Dennison III, MD 9517 [facility] [address], [place], [address] 03/08/2017 10:59:19 zoster recombinant 9 completed Not Available [facility] 03/10/2019 02:28:34 zoster recombinant 9 completed Not Available [facility] 03/10/2019 02:28:34 Influenza, recombinant, quadrivalent, PF 9 completed Not Available [facility] 03/10/2019 02:28:37 Tdap 9 completed Not Available [facility] 03/10/2019 02:28:32 zoster recombinant 8 completed Josie akhtar [facility] 04/04/2018 08:24:16 Influenza, split virus, quadrivalent, preservative 7 completed Josie akhtar [facility] 09/20/2017 10:20:04 Past Encounters Encounter ID Performer Location Encounter Start Date Encounter Closed Date Diagnosis/Indication Diagnosis SNOMED-CT Code Diagnosis ICD10 Code Diagnosis Note [id number] Last Dennison III, MD [facility] [address] [address] 03/03/2017 14:21:13 03/03/2017 15:53:16 Plantar wart of left foot 7691758341 3761483 B07.0 Lethargy 621057294 R53.8 3 Muscle weakness 16941595 M62.81 Type 2 ailin betes mellitus 90921567 E11.65 Uncontroll ed type 2 diabetes mellitus 049951954 E11.65 [id number] Last Dennison III, MD [facility] [address], [place] [address] 03/08/2017 08:26:29 03/08/2017 09:22:49 Diabetes mellitus 80758077 E11.9 poor control with A1C of 9.8 on therapy will in insulin Tx. Seasonal allergy 2314895 04 J30.2 Coronary arteriosclerosis in [place] artery 0721830088 107 I25.10 Mixed hypercholesterolemia and hypertriglyceridemia 624403881 E78.2 Vitamin D deficiency 347 27763 E55.9 Allergic rhinitis 114515 04 J30.9 Essential hypertension 53874025 I10 Plantar wa rt of left foot 1537637378 7168367 B07.0 [id number] Last Dennison III, MD [facility] [address] [address] 04/20/2017 12:56:32 04/20/2017 14:58:53 Diabetes mellitus 37253895 E11.9 poor control with A1C of 9.8 on therapy will in insulin Tx. and repeat A1C today ahead of his 05/03/17 appt. Allergic rhinitis 960339 04 J30.9 Mixed hypercholesterolemia and hypertriglyceridemia 521057495 E78.2 Acute sinusitis 01202623 J01.90 Acute pharyngitis 022037 003 J02.9 Acute bronchitis 4613742 2 J20.9 Bronchitis 24875308 J40 [id number] Last Dennison III, MD [facility] [address] [facility], [address] [facility] [place], [place] [address] 05/10/2017 13:48:44 05/10/2017 14:56:47 Hypercholesterolemia 47369685 E78.00 Diabetes mellitus 110829 09 E11.9 poor control with A1C of 9.8 on therapy will in insulin Tx. and repeat A1C today ahead of his 05/03/17 appt. Essential hypertension 31924773 I10 Coronary arteriosclerosis in [place] artery 9741033737 107 I25.10 [id number] Astrid Jones [facility] [address] [facility],[address] [place], [place] [address] 07/12/2017 08:32:03 07/22/2017 09:55:23 [id number] David Squires [facility] [address] [facility],[address] [place], [place] [address] 07/12/2017 08:55:38 07/13/2017 08:52:51 Adult health examination 441497595 Z00.00 Screening for malignant neoplasm of prostate 009923572 Z12.5 [id number] Last Dennison III, MD [facility] [address] [place] [address] 10/04/2017 08:28:27 10/04/2017 12:45:37 Adult health examination 447456825 Z00.00 Mixed hypercholesterolemia and hypertriglyceridemia 260562645 E78.2 Coronary arteriosclerosis in [place] artery 0530275850 107 I25.10 Vitamin D deficiency 347 97176 E55.9 Seasonal allergy 2770351 04 J30.2 Essential hypertension 52209726 I10 Allergic rhinitis 143159 04 J30.9 Diabetes mellitus 366562 09 E11.9 poor control with A1C of 9.8 on therapy will in insulin Tx. and repeat A1C today ahead of his 05/03/17 appt. [id number] David Tavia [facility] [address] [place] [address] 12/06/2017 08:44:54 12/07/2017 09:02:26 Diabetes mellitus 07090891 E11.9 Essential hypertension 47988375 I10 [id number] Last Dennison III, MD [facility] [address] [place] [address] 12/27/2017 08:13:48 12/27/2017 08:53:48 Mixed hypercholesterolemia and hypertriglyceridemia 210521049 E78.2 Coronary arteriosclerosis in [place] artery 5756546186 107 I25.10 Seasonal allergy 8897567 04 J30.2 Essential hypertension 33222985 I10 Diabetes mellitus 993026 09 E11.9 Allergic rhinitis 221404 04 J30.9 [id number] Last Dennison III, MD [facility] [address] [address] 03/13/2018 09:09:20 03/13/2018 10:28:28 Diabetes mellitus 24969219 E11.9 Sinusitis 41684125 J32.9 Bronchitis 29141745 J40 Type 2 ailin betes mellitus 40417867 E11.65 Allergic rhinitis 815747 04 J30.9 Essential hypertension 23504231 I10 Seasonal allergy 3634652 04 J30.2 Coronary arteriosclerosis in [place] artery 3471777819 107 I25.10 Acute pharyngitis 503622 003 J02.9 Rapid Strep is positive and WBC = 11.9. Treated with Omnicef. [id number] Astrid Jones [facility] [address] [place] [address],[address] [place] [address] 04/04/2018 08:32:45 04/04/2018 11:18:39 Active or passive immunization 152866401 Z23 [id number] Last Dennison III, MD [facility] [address] [address] 11/13/2018 10:32:49 11/13/2018 15:01:55 Mixed hypercholesterolemia and hypertriglyceridemia 360889419 E78.2 Vitamin D deficiency 347 91958 E55.9 Coronary arteriosclerosis in [place] artery 8776287037 107 I25.10 Seasonal allergy 6433087 04 J30.2 Essential hypertension 50099728 I10 Allergic rhinitis 686779 04 J30.9 Diabetes mellitus 634276 09 E11.9 Active or passive immunization 001108797 Z23 Joint pain 76332117 M25. 50 Fatigue 64937136 R53.83 [id number] Astrid Karen [facility] [address] [address] 12/11/2018 08:52:31 12/11/2018 15:02:38 Adult health examination 096378578 Z00.00 Screening procedure 2012 5006 Z13.9 [id number] Last Dennison III, MD [facility] [address] [address] 12/11/2018 08:53:10 12/11/2018 10:44:27 Vitamin D deficiency 78779502 E55.9 Essential hypertension 32183453 I10 Allergic rhinitis 422712 04 J30.9 Diabetes mellitus 133356 09 E11.9 Mixed hypercholesterolemia and hypertriglyceridemia 792269398 E78.2 Screening for malignant neoplasm of prostate 016474061 Z12.5 Viral screening 59025596 4 Z11.59 [id number] Last Dennison III, MD [facility] [address] [address] 12/25/2018 07:59:48 12/25/2018 12:28:09 Adult health examination 911912897 Z00.00 Active or passive immunization 385946907 Z23 Alcoholism 4492819 F10.2 0 Mixed hypercholesterolemia and hypertriglyceridemia 763785354 E78.2 Coronary arteriosclerosis in [place] artery 5906938777 107 I25.10 Vitamin D deficiency 347 42100 E55.9 Seasonal allergy 0304712 04 J30.2 Essential hypertension 14842036 I10 Allergic rhinitis 276572 04 J30.9 Diabetes mellitus 163901 09 E11.9 [id number] Last Dennison III, MD [facility] [address] [address] 04/26/2019 10:40:19 04/27/2019 11:11:27 Alcoholism 7729250 F10.20 Allergic rhinitis 623336 04 J30.9 Coronary arteriosclerosis in [place] artery 4595652486 107 I25.10 Diabetes mellitus 171618 09 E11.9 Essential hypertension 55534475 I10 Mixed hypercholesterolemia and hypertriglyceridemia 946846094 E78.2 [id number] Last Dennison III, MD [facility] [address] [address] 05/17/2019 11:03:10 05/17/2019 13:48:22 Alcoholism 7951849 F10.20 Allergic rhinitis 793578 04 J30.9 Coronary arteriosclerosis in [place] artery 0688787912 107 I25.10 Diabetes mellitus 970167 09 E11.9 Essential hypertension 92961412 I10 Mixed hypercholesterolemia and hypertriglyceridemia 110769122 E78.2 Vitamin D deficiency 347 55436 E55.9 Sleep apnea 14044606 G47 .30 [id number] Josie Vogel [facility] [address] [address] 09/13/2019 14:26:17 09/13/2019 15:00:18 Exposure to SARS-CoV-2 327750537 Z20.828 Health Concerns Section Related Observation LastModified by Organization Detai ls LastModified Time None Recorded Concern Status LastModified by Organization Details LastModified Time None Recorded Advance Directives Directive None Recorded Payers Encounter Date Sequence Insurance Name Policy Number Policy Ojead Covered Member ID Ojeda Member ID Guarantor Name 12/11/2018 1 [employer] - OPEN ACCESS - NATIONAL (POS) [id number] Harish To [id number] Harish To 12/25/2018 1 [employer] - OPEN ACCESS - NATIONAL (POS) [id number] Harish To [id number] Harish To 04/26/2019 1 [employer] - OPEN ACCESS - NATIONAL (POS) [id number] Harish To [id number] Harish To 05/17/2019 1 [employer] - OPEN ACCESS - NATIONAL (POS) [id number] Harish To [id number] Harish To 09/13/2019 1 [employer] - OPEN ACCESS - NATIONAL (POS) [id number] Harish To [id number] Harish To Notes Date Note Type Note Provider Name and Address Organization Details Recorded Time 12/11/2018 text/html Patient presents today for the [facility] labs and procedures. Astrid Jones [facility] Internal [facility] 01/16/2019 11:58:42 12/11/2018 text/html HPI: The patient is a 58-year-old white male who was last seen in the office on November 13, 2018. He had some left hand tremor that actually has much improved at this point and at this time, he is back today having his annual-wellness visit exam done. He also comes in with some other issues, mainly following up for the tremor, but also following up on allergies, his cholesterol readings, etc. from November 13, 2018 laboratory analysis from there. He is interested in having some STD checks for his significant allergies that are now seen as well. He would like to have that performed. Otherwise, his status is stable or even improved. He gets his workup and anticipates his annual-wellness visit coming up on December 25, 2018. ALLERGIES: As per our previous note from November 13, 2018. MEDS: As per our previous note from November 13, 2018. Last Dennison III, MD [address], [address], [facility] Internal Med 12/12/2018 18:13:59 12/25/2018 text/html HPI: The patient is a 58-year-old white male with a history of diabetes type 2 that is insulin requiring and coronary artery disease. The patient has status post a stent to the LAD in 2004. He has an appropriate followup. He admits to not being as good control with diabetes as he otherwise should be. He denies acute issues such as fever, chills, nausea, vomiting, diarrhea or other changes. He plans on being back on a better diet, etc. once he retires next month. ALLERGIES: No known medical allergies. MEDS: Presently include: 8. Simvastatin 40 mg once each evening. 9. Zetia 10 mg once a day. 10. Plavix 75 mg once a day. 11. Enteric-coated aspirin 81 mg once a day. 12. Multivitamin. 13. Lisinopril 40 mg once a day. 14. Metformin 1000 mg a.c. b.i.d. 15. Toujeo 70 units once a day subcutaneously. He will be going to 80 units as of today. 16. Victoza 1.8 mg subcutaneously once a day. 17. Vitamin D 2000 units a day. 18. Flonase two sprays each nostril once a day. 19. Cetirizine (generic Zyrtec) taking 10 mg once a day. He is now going to move that to as needed basis. 20. Omeprazole 20 mg a day. 21. Trazodone 50 mg q.h.s. on a p.r.n. basis. 22. Viagra was used on a p.r.n. basis, now switching over to Cialis 5 mg once a day with prescription written today more of a daily dosing. The patient with history of the prostatic hypertrophy as well as the erectile dysfunction. No other regular medicines at this time. Patient is here for the [facility] Wellness Program and Subsequent Annual Wellness Exam. During this visit we will review and discuss their Health Risk Assessment and review the various tests and procedures performed as part of the [facility] Annual Wellness Exam. The patient has no current acute medical complaints, nor any recent hospitalizations. Discussion Points for Review during Visit: -Review current medical conditions and specialists' consultations in detail. -Labs and testing review in great detail. -Review risks associated w/pain, nutrition, hydration, sleep, stress, activity and sexual health. -Review risks of alcohol, caffeine, and tobacco. -Preventative services and offer available/appropriat e services. -Review personal, home and safety. Last Dennison III, MD [address] [address], [place], [address], [facility] Internal Med 12/26/2018 09:24:59 04/26/2019 text/html This is 59 -year old white male with insulin requiring diabetes mellitus type II, some allergic rhinitis, hypertension, coronary artery disease, who presents to the office today for an office visit. He was last seen in the office on May 25, 2018 for his annual physical examination/complete physical examination and today he is here to go over his glucose readings. He is working on an aggressive diet now, HMR diet and will plan on doing more exercise and has been diligent about the diet and avoiding sweets and has been able to titrate his medications down in terms of the Toujeo and has gone from 80 units once per day to 40 units per day and we discussed titration and other medications and other therapy in progress. ALLERGIES: Per our annual physical examination/complete physical examination note from December 25, 2018. MEDS: Per our annual physical examination/complete physical examination note from December 25, 2018, though he is now on the Toujeo just at 40 units per day, sub q. Last Dennison III, MD [address], [address], [facility] Internal [facility] 04/27/2019 12:24:55 05/17/2019 text/html This is 59 -year old white male with insulin requiring diabetes mellitus type II, some allergic rhinitis, hypertension, coronary artery disease, who is having a virtual visit today over the telephone. He was last seen in the office on 04/26/2019. Today we are on the phone to go over his glucose readings, labatory results from 04/26/2019 and to discusss her status. He is working on an aggressive diet now, and will be doing more exercise and walking specifficly. has been diligent about the diet and avoiding sweets and has been able to titrate his medications down in terms of the Toujeo and has gone from 40 units once per day to 50 units per day as of 05/02/2019. We discussed other medications and other therapy in progress. He also plans on doing his AA meeting online as well. ALLERGIES: Per our annual physical examination/complete physical examination note from December 25, 2018. MEDS: Per our annual physical examination/complete physical examination note from December 25, 2018, though he is now on the Toujeo just at 50 units per day, sub q as of May 01. Last Dennison III, MD [address], [place], [address], [facility] Internal [facility] 05/17/2019 11:41:31
--- OUTSIDE RECORDS SUMMARY | 2024-06-08 17:04 | XMS_ITS | Referral Summary ---
Author Organization [facility] Address [address] [place] [address] Care Team Providers Care Sonar Technician Name Role Phone Jorge Wild MD Primary Care Provider [phone] Encounters Date Type Department Care Team Description 05/24/2024 11:00 AM CDT Office Visit [facility] Neurology [address] [place] [phone] Car Cha MD Cognitive and behavioral changes (Primary Dx); Dementia without behavioral disturbance, psychotic disturbance, mood disturbance, or anxiety, unspecified dementia severity, unspecified dementia type (HCC) 05/07/2024 9:00 AM CDT Clinical Support [facility] Neuro Psychology [address] [place] [phone] Kristina Rincon, PhD Cognitive and behavioral changes 03/21/2024 Telephone [facility] Endocrinology Metabolism and Lipid [address] [place] [phone] Dina Interiano, office administrator note request 03/20/2024 Telephone [facility] Endocrinology Metabolism and Lipid [address] [place] [phone] Dina Interiano, RN AARON WILHELM HYPOPEN 03/20/2024 10:00 AM ADULT EDUCATION PROFESSIONAL Office Visit [facility] Endocrinology Metabolism and Lipid [address] [place] [phone] Kadeem Connelly MD Type 2 diabetes mellitus with hypoglycemia without coma, with long-term current use of insulin (HCC) (Primary Dx); Coronary artery disease without angina pectoris, unspecified vessel or lesion type, unspecified whether [place] or transplanted heart; Encounter for long-term (current) use of medications; Hyperlipidemia, unspecified hyperlipidemia type; Hx of diabetes mellitus from Last 3 Months Allergies No known active allergies Medications Victoza 3-Juan 0.6 mg/0.1 mL (18 mg/3 mL) injection INJECT 1.8 MG UNDER THE SKIN ONCE DAILY 04/22/2020 Active simvastatin (ZOCOR) 40 mg tablet Take 1 tablet (40 mg total) by mouth nightly 02/16/2020 Active lisinopriL (PRINIVIL,ZESTR IL) 40 mg tablet Take 1 tablet (40 mg total) by mouth daily 03/25/2020 Active metFORMIN (GLUCOPHAGE) 1,000 mg tablet Take 1 tablet (1,000 mg total) by mouth 2 (two) times a day 03/25/2020 Active ezetimibe (ZETIA) 10 mg tablet Take 1 tablet (10 mg total) by mouth daily 02/21/2020 Active traZODone (DESYREL) 50 mg tablet 05/08/2020 Active FreeStyle Chris 14 Day Sensor kit USE TO MONITOR BLOOD SUGAR DAILY 04/03/2020 Active FreeStyle Chris 14 Day Reading misc USE TO MONITOR BLOOD SUGAR DAILY 04/03/2020 Active vw-ecv-morjg-ly [id number] 200-175-250 mcg tablet Take by mouth Active ascorbic acid (vitamin C) 1,000 mg tablet Take 1 tablet (1,000 mg total) by mouth daily Active aspirin 81 mg enteric coated tablet Take 1 tablet (81 mg total) by mouth daily Active cholecalciferol (VITAMIN D-3) 2000 unit capsule 1 capsule (2,000 Units total) Active omeprazole (PriLOSEC) 20 mg capsule Take 1 capsule (20 mg total) by mouth daily Active cetirizine (ZyrTEC) 10 mg tablet Take 1 tablet (10 mg total) by mouth daily Active insulin glargine (TOUJEO) 300 unit/mL (1.5 mL) pen for injection Inject 45 Units under the skin daily Active glucagon 1 mg/0.2 mL auto-injectorIn dications:hypog lycemic disorder Inject 1 mg under the skin as needed (severe hypoglycemia , may repeat in 15 mins if needed with new device.) 0.6 mL 1 03/20/2024 Active blood-glucose sensor (FreeStyle Chris 3 Plus Sensor) device Use to check blood sugar continuously . 5 each 3 03/20/2024 Active Active Problems Problem Noted Date Diagnosed Date Coronary artery disease invo lving [place] coronary artery of [place] heart without angina pectoris 05/22/2020 History of coronary artery stent placement 05/22 Social History Tobacco Use Types Packs/Day Years Used Date Smoking Tobacco: Never Smokeless Tobacco: Never AUDIT-C Answer Date Recorded Q1: How often do you have a drink containing alc ohol? Never 05/22/2020 Average Number of Drinks Not on file 021 Frequency of Binge Drinking Not on file 02/2020 Sex and Gender Information Value Date Recorded Sex Assigned at Not on file Legal Sex Male 11:29 AM ADULT EDUCATION PROFESSIONAL Gender Identity Not on file Sexual Orientation Not on file Last Filed Vital Signs Vital Sign Reading Time Taken Comments Blood Pressure 128/70 05/24/2024 11:01 AM CDT Pulse 78 05/24/2024 11:01 AM CDT Temperature 36.2 C (97.1 F) 03/20/2024 9:52 AM ADULT EDUCATION PROFESSIONAL Respiratory Rate 18 01/27/2024 10:13 AM ADULT EDUCATION PROFESSIONAL Oxygen Saturation 98% 05/24/2024 11:01 AM CDT Inhaled Oxygen Concentration - - Weight 84.8 kg (187 lb) 05/24/2024 11:01 AM CDT Height 182.9 cm (6' 0.01 ) 05/24/2024 11:01 AM C DT Body Mass Index 25.36 05/24/2024 11:01 AM CDT Plan of Treatment Not on file Procedures Procedure Name Priority Date/Time Associated Diagnosis Comments POCT HEMOGLOBIN A1C Routine 03/20/2024 1 0:08 AM ADULT EDUCATION PROFESSIONAL Type 2 diabetes mellitus with hypoglycemia without coma, with long-term current use of insulin (HCC) POCT LIPID PANEL Routine 05/22/2020 12:0 9 PM CDT Coronary artery disease involving [place] coronary artery of [place] heart without angina pectoris from Last 3 Months or Most Recently Relevant to Health Maintenance Results * POCT hemoglobin A1c (03/20/2024 10:08 AM ADULT EDUCATION PROFESSIONAL) Hemoglobin A1C, POC 7.7 4.0 - 5.6 % Blood 03/20/2024 10:0 8 AM ADULT EDUCATION PROFESSIONAL Kadeem Connelly MD POINT OF CARE TEST ORDERABLES F inal Result * POCT lipid panel (05/22/2020 12:09 PM CDT) Cholesterol, POC 215 mg/dL HDL, POC 38 mg/dL Triglycerides, POC 335 mg/dL LDL Cholesterol POC 110 mg/dL Chol/HDL Ratio, POC 5.6 Non-HDL Cholesterol, POC 177 mg/dL Cholesterol Total, POC 215 mg/dL Capillary blood 05/22/2020 1 2:09 PM CDT Ernie Phillips MD POINT OF CARE TEST ORDER ADAMA Final Result from Last 3 Months or Most Recently Relevant to Health Maintenance Insurance [employer] MEDICARE PPO [employer] MEDICARE PPO [employer] MED[employer] PPO Care Teams Sonar Technician Relationship Specialty Start Date End Date Jorge Wild MD [address] [place] [address] PCP - General Internal Medicine 06/11/22
--- OUTSIDE RECORDS SUMMARY | 2024-06-08 17:04 | XMS_ITS | Clinical Summary ---
Author Organization [facility] Address [address] [place] [address] Care Team Providers Care Dance Instructor Name Role Phone Jorge Wild MD Primary Care Provider [phone] Allergies No known active allergies Medications Victoza [...] DAILY 04/03/2020 Active FreeStyle Chris 14 Day [place] misc USE TO MONITOR BLOOD SUGAR DAILY 04/03/2020 Active na-sum-vymwb-ly [id number] 200-175-250 mcg tablet Take by mouth Active [...] Diagnosed Date Coronary artery disease invo lving [place] coronary artery of [place] heart without angina pectoris 05/22/2020 History of coronary artery stent placement 05/22 Encounters Date Type Department Care Team Description 05/24/2024 11:00 AM CDT Office Visit [facility] Neurology [address] [place] [phone] Car Cha MD Cognitive and behavioral changes (Primary Dx); Dementia without behavioral disturbance, psychotic disturbance, mood disturbance, or anxiety, unspecified dementia severity, unspecified dementia type (HCC) 05/07/2024 9:00 AM CDT Clinical Support [facility] Neuro Psychology [address] [phone] Kristina Rincon, PhD Cognitive and behavioral changes 03/21/2024 Telephone [facility] Endocrinology Metabolism and Lipid [address] [place] [phone] Dina Interiano, business liaison officer note request 03/20/2024 10:00 AM TIN DIPPER Office Visit [facility] Endocrinology Metabolism and Lipid [address] [place] [phone] Kadeem Connelly MD Type 2 diabetes mellitus with hypoglycemia without coma, with long-term current use of insulin (HCC) (Primary Dx); Coronary artery disease without angina pectoris, unspecified vessel or lesion type, unspecified whether [place] or transplanted heart; Encounter for long-term (current) use of medications; Hyperlipidemia, unspecified hyperlipidemia type; Hx of diabetes mellitus 03/20/2024 Telephone [facility] Endocrinology Metabolism and Lipid [address] [facility] [place] [facility] [address] [place] [phone] Dina Interiano, TI VALENCIA from Last 3 Months Surgical History Surgery Date Site/Laterality Comments CORONARY ANGIOPLASTY 02/21/2014 - 02/20/2015 Medical History Medical History Date Comments Hyperlipidemia Diabetes mellitus (HCC) Hypertension Family History Medical History Relation Name Comments front temporal dimentia Brother Lung cancer Mother Heart disease Sister Relation Name Status Comments Brother (Age 61) Father (Age 78) Mother (Age 81) Sister Alive Social History Tobacco Use Types Packs/Day Years [...] on file Legal Sex Male 11:29 AM TIN DIPPER Gender Identity Not on file Sexual Orientation Not on file Obstetrics History Last Filed Vital Signs Vital Sign Reading Time Taken Comments Blood Pressure 128/70 05/24/2024 11:01 AM CDT Pulse 78 05/24/2024 11:01 AM CDT Temperature 36.2 C (97.1 F) 03/20/2024 9:52 AM TIN DIPPER Respiratory Rate 18 01/27/2024 10:13 AM TIN DIPPER Oxygen Saturation 98% 05/24/2024 11:01 AM CDT Inhaled Oxygen Concentration - - Weight 84.8 kg (187 lb) 05/24/2024 11:01 AM CDT Height 182.9 cm (6' 0.01 ) 05/24/2024 11:01 AM C DT Body Mass Index 25.36 05/24/2024 11:01 AM CDT Plan of Treatment Health Maintenance Due Date Last Done Comments Albumin Creatinine Ratio, Urine 1958 Colon Cancer Screening-Colonoscopy 1958 Depression Screening 1958 Fall Risk Assessment 1958 Hepatitis C Screening 1958 Prostate Cancer Screening-PSA 1958 eGFR 1958 Dilated Eye Exam 1958 Foot Exam 1958 Hepatitis B Screening 1976 Pneumococcal vaccine 65+ (2 of 2 - PPSV23) 06/14/2014 04/19/2014 Lipid Panel 05/22/2021 05/22/2020, 11/15/2007 Well Visit 65+ 04/26/2023 Hemoglobin A1C 09/17/2024 03/20/2024 Influenza Vaccine (Season Ended) 2024 03/12/2020, 11/13/2018, 12/21/2016 DTaP/Tdap/Td Vaccine (3 - Td or Tdap) 12/25/202805/2018, 06/21/2008 Zoster Vaccine Completed 04/04/2018, 12/11/2017 Procedures Procedure Name Priority Date/Time Associated Diagnosis Comments POCT HEMOGLOBIN A1C Routine 03/20/2024 1 0:08 AM TIN DIPPER Type 2 diabetes mellitus with hypoglycemia without coma, with long-term current use of insulin (HCC) POCT LIPID PANEL Routine 05/22/2020 12:0 9 PM CDT Coronary artery disease involving [place] coronary artery of [place] heart without angina pectoris from Last 3 Months or Most Recently Relevant to Health Maintenance Results * POCT hemoglobin A1c (03/20/2024 10:08 AM TIN DIPPER) Hemoglobin A1C, POC 7.7 4.0 - 5.6 % Blood 03/20/2024 10:0 8 AM TIN DIPPER us Kadeem Connelly MD POINT OF CARE TEST [...] Most Recently Relevant to Health Maintenance Insurance [employer] MEDICARE PPO [employer] [place] [address] [employer] MEDICARE PPO Care Teams Dance Instructor Relationship Specialty Start Date End Date Jorge Wild MD [address] [place] [address] PCP - General Internal Medicine 06/11/22
== END 2024-06-08 16:58 | disposition home or self-care (01) ==
PROVIDERS: PCP Internal Medicine; Visit Provider Internal Medicine
DX: R63.4 Abnormal weight loss (principal)
CPT/HCPCS: 71046

== ENCOUNTER 2024-06-20 06:56 | Outpatient (CLI) | payer MEDICARE, SELFPAY ==
--- NOTE | ~2024-06-20 | CT_ITS ---
Clinical Indication: Abnormal weight loss CT Scan of the Chest, Abdomen, and Pelvis with Contrast: Technique: Contiguous sections were acquired throughout the chest, abdomen, and pelvis after intraven ous administration of 100 cc of Omnipaque 350. Dose reduction technique was used on this scan by uti lizing automated exposure control and iterative reconstruction technique. The dose-length product (DL P) was 699.36 mGy-cm. Findings: There is no evidence of any significant mediastinal, hilar or axillary lymphadenopathy. The mediastin al soft tissues and vascular structures appear normal. There is no evidence of pleural or pericardial effusion. 6 mm left lower lobe pulmonary nodule present (axial image 89). There is linear scarring towards the lingula. Right lung clear. The liver, spleen, pancreas, gallbladder, right adrenal gland, and kidneys are within normal limits. Probable thickening of the left adrenal gland versus 1.3 cm nodule. No evidence of aortic aneurysm. No lymphadenopathy. No bowel obstruction or bowel wall thickening. There is no evidence to suggest acute appendicitis. Small layering urinary bladder stones are present. No pelvic mass seen. No ascites. Impression: 6 mm left lower lobe pulmonary nodule. According to Fleischner Society criteria, for a low-risk patie nt, recommend follow CT scan in 6-12 months, then consider additional 18-[address] For a high-risk patient, follow-up CT scans at both 6-12 months and 18-24 months are recommended. Thickening of the left adrenal gland versus possible 1.3 cm nodule. Consider follow-up MR for further evaluation. Small layering urinary bladder stones. Reviewed, dictated and finalized at [facility]. Impression: 6 mm left lower lobe pulmonary nodule. According to Fleischner Society criteria , for a low-risk patient, recommend follow CT scan in 6-12 months, then conside r additional 18-[address] For a high-risk patient, follow-up CT scans at bot h 6-12 months and 18-24 months are recommended. Thickening of the left adrenal gland versus possible 1.3 cm nodule. Consider fo llow-up MR for further evaluation. Small layering urinary bladder stones.
--- OUTSIDE RECORDS SUMMARY | 2024-06-20 07:01 | XMS_ITS | Data Portability ---
Author Organization [facility] OFFICE Address [address] [address] Assessment Encounter Date Assessment Date Assessment LastModified [...] closely. Last Dennison III, MD. MAYO/claire/ SHARYN/Last--Jesi- -[id number] DOT: 12/25/2018 matty Not available 12/26/2018 09:24:36 [...] for any questions for changes in status. Last Dennison III, MD/05/17/2019 [email or web address] Not available 05/17/2019 11:38:49 Plan of Treatment Reminders Order Date Submit Date Provider Last Modified By Organization Details Last Modified Time Details Appointments None recorded. 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, respirato ry specimen 2019 020 anderson [facility], [address], [facility], [place], [address], 0 08:47:52 HbA1c (hemoglob in A1c), blood 2019 020 [facility], [address] [facility] [address], [place], [address], 0 13:40:37 glucose, fasting, fingersti ck, blood (point of care) 2019 020 [facility], [address] [facility] [address] [facility] [address], [place], [address], 0 13:40:37 lipid panel, serum 2019 020 [facility], [address], [facility], [place], [address], 0 07:40:19 CMP, serum or plasma 2019 020 [facility], [address], [facility], [place], [address], 0 07:40:19 CBC w/ auto diff 2019 020 [facility], [address] [facility] [facility], [place], [address], 0 13:40:37 fecal occult blood, immunoass ay, stool 2018 019 [facility], [address] [facility] [address], [address], 9 10:33:43 unlisted lab - mdvip alternati ve awp 2018 019 shireen [facility] - Manual Order Only, [address], [place], [address], 9 15:56:54 Referral None recorded. Procedures body compositi on analysis (PROC) 2018 019 [facility], [address], [address], 9 10:26:48 Surgeries None recorded. Imaging audiogram [email or web address], [address], [address], 9 15:02:38 spirometr y [email or web address], [address], [address], 9 15:02:38 electroca rdiogram [address], [address], [address], 9 15:02:38 Medication Orders None recorded. Patient TargetsNo targets recorded. Patient Instructions Encounter Date Encounter Id Patient Instructions Last Modified By Organization Details Last Modified Time 12/11/2018 [id number] ([email or web address]) ankle brachial index* [email or web address] Not available [...] soon! anderson Not available 12/11/2018 09:26:27 12/25/2018 [id number] In compliance with Medicare guidelines, we will be billing Medicare to inform them of your adherence to completing your necessary preventive care. anderson Not available 12/25/2018 08:15:54 Reason for Referral None Reported. Results Created Date Observation Date Name Description Value Unit Range Abnormal Flag Note LastModifiedBy Organization Detail LastModifiedTime 11/14/1911/14/2018 lipid panel , serum cholesterol, total 148 mg/dL <200 normal Not Available [facility] [address] [facility], [place], [address], 11/14/2018 09:19:16 11/14/1911/14/2018 lipid panel , serum HDL cholesterol 46 mg/dL >40 normal Not Available [facility] [address] [facility], [place], [address], 11/14/2018 09:19:16 11/14/1911/14/2018 lipid panel , serum triglyceride s 247 mg/dL <150 high If a non-f astin g speci men was colle cted, consi josé miguel repea t trigl yceri de testi ng on a fasti ng speci men if clini mateusz indic ated. Savage nolasco et al. J. of Clin. Lipid ol. 2015; 9:129 -169. Not Available [facility] [address] [facility], [place], [address], 11/14/2018 09:19:16 11/14/1911/14/2018 lipid panel , serum [...] 2061- 2068 (http ://ed ucati on.Qu estDi COMARCOs. com/f aq/FA Q164) Not Available [facility] [address] [facility] [place], [address], 11/14/2018 09:19:16 11/14/1911/14/2018 lipid panel , serum chol/HDLC ratio 3.2 (calc ) <5.0 normal Not Available [facility] [address] [place], [address], 11/14/2018 09:19:16 11/14/1911/14/2018 lipid panel , serum non HDL cholesterol 102 mg/dL _(jorge alberto c) <130 normal For patie nts with diabe mayda plus 1 major ASCVD risk facto r, treat ing to a non-H DL-C goal of <100 mg/dL (LDL- C of <70 mg/dL ) is consi malissa rodriguez optio n. Not Available [facility] [address] [facility] [place], [address], 11/14/2018 09:19:16 11/14/1911/14/2018 thyro id panel , serum T3 uptake 28 % 22-35 normal Not Available [facility] [address] [facility] [place], [address], 11/14/2018 09:19:17 11/14/1911/14/2018 thyro id panel , serum T4 (thyroxine), total 8.7 mcg/d L 4.9-10 .5 normal Not Available [facility] [address] [facility] [facility] [place], [address], 11/14/2018 09:19:17 11/14/1911/14/2018 thyro id panel , serum free T4 index (T7) 2.4 1.4-3. 8 normal Not Available [facility] [address] [facility] [place], [address], 11/14/2018 09:19:17 11/14/1911/14/2018 thyro id panel , serum TSH 0.95 mIU/L 0.40-4 .50 normal Not Available [facility] [address] [facility] [place], [address], 11/14/2018 09:19:17 11/14/1911/14/2018 CMP, serum or plasm a glucose 178 mg/dL 65-99 high Fasti ng refer ence inter itz For someo ne witho ut known diabe mayda, a gluco se value >125 mg/dL indic ates that they may have diabe mayda and this shoul d be confi rmed with a follo w-up test. Not Available [facility] [address] [place], [address], 11/14/2018 09:19:17 11/14/1911/14/2018 CMP, serum or plasm a urea nitrogen (BUN) 12 mg/dL 7-25 normal Not Available [facility] [address] [place], [address], 11/14/2018 09:19:17 11/14/1911/14/2018 CMP, serum or plasm a creatinine 0.84 mg/dL 0.70-1 .25 normal For patie nts >49 years of age, the refer ence limit for Creat inine is appro ximat gaudencio 13% highe r for peopl e ident ified as Afric an-Am agnes n. Not Available [facility] [address] [facility] [place] [place], [address], 11/14/2018 09:19:17 11/14/1911/14/2018 CMP, serum or plasm a eGFR non-afr. nepalese 95 mL/mi n/1.7 3m2 > or = 60 normal Not Available [facility] [address] [place], [address], 11/14/2018 09:19:17 11/14/1911/14/2018 CMP, serum or plasm a eGFR 110 mL/mi n/1.7 3m2 > or = 60 normal Not Available [facility] [address] [place], [address], 11/14/2018 09:19:17 11/14/1911/14/2018 CMP, serum or plasm a BUN/creatini ne ratio NOT APPLIC ABLE (calc ) 6-22 Not Available [facility] [address] [facility] [place], [address], 11/14/2018 09:19:17 11/14/1911/14/2018 CMP, serum or plasm a sodium 136 mmol/ L 135-14 6 normal Not Available [facility] [address] [facility] [facility] [place], [address], 11/14/2018 09:19:17 11/14/1911/14/2018 CMP, serum or plasm a potassium 4.3 mmol/ L 3.5-5. 3 normal Not Available [facility] [address] [facility] [place], [address], 11/14/2018 09:19:17 11/14/1911/14/2018 CMP, serum or plasm a chloride 97 mmol/ L 98-110 low Not Available [facility] [address] [facility] [place], [address], 11/14/2018 09:19:17 11/14/1911/14/2018 CMP, serum or plasm a carbon dioxide 28 mmol/ L 20-32 normal Not Available [facility] [address] [facility] [place], [address], 11/14/2018 09:19:17 11/14/1911/14/2018 CMP, serum or plasm a calcium 9.9 mg/dL 8.6-10 .3 normal Not Available [facility] [address] [facility] [place] [place], [address], 11/14/2018 09:19:17 11/14/1911/14/2018 CMP, serum or plasm a protein, total 7.3 g/dL 6.1-8. 1 normal Not Available [facility] [facility] [place], [address], 11/14/2018 09:19:17 11/14/19 19 11/14/2018 CMP, serum or plasm a albumin 4.3 g/dL 3.6-5. 1 normal Not Available [facility] [address] [place] [address], [address], 11/14/2018 09:19:17 11/14/1911/14/2018 CMP, serum or plasm a globulin 3.0 g/dL_ (calc ) 1.9-3. 7 normal Not Available [address], [address], 11/14/2018 09:19:17 11/14/1911/14/2018 CMP, serum or plasm a albumin/glob ulin ratio 1.4 (calc ) 1.0-2. 5 normal Not Available [facility] [address] [place] [address], [address], 11/14/2018 09:19:17 11/14/1911/14/2018 CMP, serum or plasm a bilirubin, total 0.4 mg/dL 0.2-1. 2 normal Not Available [facility] [address] [place] [address], [address], 11/14/2018 09:19:17 11/14/1911/14/2018 CMP, serum or plasm a alkaline phosphatase 77 U/L 40-115 normal Not Available [facility] [address] [place] [address], [address], 11/14/2018 09:19:17 11/14/1911/14/2018 CMP, serum or plasm a AST 21 U/L 10-35 normal Not Available [facility] [address] [place], [address], 11/14/2018 09:19:17 11/14/19 19 11/14/2018 CMP, serum or plasm a ALT 34 U/L 9-46 normal Not Available [facility] [address] [place], [address], 11/14/2018 09:19:17 11/14/19 19 11/14/2018 vitam in [...] /MS is recom jozef d: order code 37701 (rita ents >2yrs ). For more infor aubrey maria on this test, go to: http: //franklin coombs gnost ics.c om/fa q/FAQ 163 (This link is being provi ded for infor aubrey nal/e ducat ional purpo ses only. ) Not Available [facility] [address] [place], [address], 11/14/2018 09:19:18 11/14/1911/13/2018 ESR (eryt hrocy te sedim entat ion rate) , blood Sed Rate 5 Not Available [facility] [address], [place], [address], 11/13/2018 11:53:24 11/14/1911/13/2018 HbA1c (hemo globi n A1c), blood HbA1C 8.3 Not Available [facility] [address] [place] [address], [address], 11/13/2018 12:01:28 11/14/1911/13/2018 CBC w/ auto diff WBC 9.1 K/uL 4.6-10 .2 Not Available [facility] [address] [place] [address], [address], 11/13/2018 11:54:55 11/14/1911/13/2018 CBC w/ auto diff lym 2.4 K/uL 0.6-3. 4 Not Available [facility] [address] [place] [address], [address], 11/13/2018 11:54:55 11/14/1911/13/2018 CBC w/ auto diff lym % 25.9 %L 10.0-5 0.0 Not Available [facility] [address] [place] [address], [address], 11/13/2018 11:54:55 11/14/1911/13/2018 CBC w/ auto diff *mid 0.7 K/uL 0.0-0. 9 Not Available [facility] [address] [place] [address], [address], 11/13/2018 11:54:55 11/14/1911/13/2018 CBC w/ auto diff *mid % 7.7 %M 0.0-12 .0 Not Available [facility] [address] [place] [address], [address], 11/13/2018 11:54:55 11/14/1911/13/2018 CBC w/ auto diff gran 6.0 K/uL 2.0-6. 9 Not Available [facility] [address] [place] [address], [address], 11/13/2018 11:54:55 11/14/1911/13/2018 CBC w/ auto diff gran% 66.4 %g 37.0-8 0.0 Not Available [facility] [address] [place] [address], [address], 11/13/2018 11:54:55 11/14/1911/13/2018 CBC w/ auto diff RBC 5.46 M/uL 4.04-5 .48 Not Available [facility] [address] [place] [address], [address], 11/13/2018 11:54:55 11/14/1911/13/2018 CBC w/ auto diff HGB 14.9 g/dL 12.2-1 5. Not Available [facility] [address] [place] [address], [address], 11/13/2018 11:54:55 11/14/1911/13/2018 CBC w/ auto diff HCT 47.0 % 37.7-4 7.9 Not Available [facility] [address] [place] [address], [address], 11/13/2018 11:54:55 11/14/1911/13/2018 CBC w/ auto diff MCV 86.1 fL 80.0-9 7.0 Not Available [facility] [address] [place] [address], [address], 11/13/2018 11:54:55 11/14/1911/13/2018 CBC w/ auto diff MCH 27.3 pg 27.0-3 1.2 Not Available [facility] [address] [place] [address], [address], 11/13/2018 11:54:55 11/14/1911/13/2018 CBC w/ auto diff MCHC 31.7 g/dL 31.8-3 5.4 low Not Available [facility] [address] [place] [address], [address], 11/13/2018 11:54:55 11/14/1911/13/2018 CBC w/ auto diff RDW 14.2 % 11.6-1 4.8 Not Available [facility] [address] [place] [address] [place], [address], 11/13/2018 11:54:55 11/14/19 19 11/13/2018 CBC w/ auto diff plt 293 K/uL 142.-4 24. Not Available [facility] [address] [place] [address], [address], 11/13/2018 11:54:55 11/14/19 19 11/13/2018 CBC w/ auto diff MPV 7.2 fL 0.0-99 .8 Not Available [facility] [address] [place] [address], [place], [address], 11/13/2018 11:54:55 11/14/1911/13/2018 gluco se, fasti ng, finge rstic k, blood (poin t of care) FBS 161 Not Available [facility] [address] [place] [address], [address], 11/13/2018 11:54:41 12/12/1912/12/2018 PSA, serum or plasm [...] This test was perfo rmed using the AVOB chemi lumin escen t metho d. Value s obtai amy from diffe rent assay metho ds canno t be used inter eubanks eably . PSA level s, regar dless of value , shoul d not be inter prete d as absol [place] evide nce of the prese nce or absen ce of disea se. Not Available [facility] [address] [facility], [place], [address], 12/12/2018 15:04:26 12/12/19 19 12/12/2018 RPR (rapi d plasm a reagi n), serum RPR (monitor) w/refl titer NON-RE ACTIVE non-re active normal Not Available [facility] [address] [facility], [place], [address], 12/12/2018 15:04:26 12/12/19 19 12/12/2018 HIV 1+2 [...] matio n pleas e refer to http: //[facility] catazalea n.que stdia gnost ics.c om/fa q/FAQ 106 (This link is being provi ded for infor matio nal/ educa gio l purpo ses only. ) The perfo rmanc e of this assay has not been clini mateusz valid ated in patie nts less than 2 years old. Not Available [facility] [address] [facility], [place], [address], 12/12/2018 19:01:45 12/12/19 19 12/12/2018 hsv (1+2) igg, serum hsv 1 IgG, type specific Ab <0.90 index normal Not Available [facility] [address] [place], [address], 12/12/2018 19:01:45 12/12/1912/12/2018 hsv (1+2) igg, serum [...] cted but the resul ts are negat itm or equiv ocal, the assay shoul d be repea ayesha in 4-6 weeks . The perfo rmanc e rohit cteri stics of the assay have not been estab lishe d for pedia tric popul ation s, immun ocomp romis ed patie nts, or neona rose scree roc. Not Available [facility] [address] [place], [address], 12/12/2018 19:01:45 12/12/1912/12/2018 CT + NG RNA, PCR, unspe cifie d speci men chlamydia trachomatis RNA, tma, urogenital NOT DETECT ED not detect ed normal Not Available [facility] [address] [facility] [place], [address], 12/12/2018 19:01:46 12/12/1912/12/2018 CT + NG RNA, PCR, unspe cifie d speci men neisseria gonorrhoeae RNA, tma, urogenital NOT DETECT ED not detect ed normal Not Available [facility] [address] [place], [address], 12/12/2018 19:01:46 12/12/1912/12/2018 CT + NG RNA, [...] ostdarryl s. Not Available [facility] [address] [facility] [place], [address], 12/12/2018 19:01:46 12/12/1912/11/2018 lipid panel , serum cholesterol, total 141 mg/dL <200 Not Available [facility] - Manual Order Only [address], [place], [address], 12/16/2018 00:14:06 12/12/19 19 12/11/2018 lipid panel , serum HDL cholesterol 44 mg/dL >39 Not Available [facility] - Manual Order Only [address], [place], [address], 12/16/2018 00:14:06 12/12/19 19 12/11/2018 lipid panel , serum triglyceride s 166 mg/dL <150 high Not Available [facility] - Manual Order Only [address], [place], [address], 12/16/2018 00:14:06 12/12/19 19 12/11/2018 lipid panel [...] 9): 2061- 2068 (http ://ed mauryati on.Rachel vegaadicate timeads. com/f aq/FA Q164) Not Available [facility] - Manual Order Only [address], [place], [address], 12/16/2018 00:14:06 12/12/19 19 12/11/2018 lipid panel , serum chol/HDL-C 3.2 calc <3.6 Not Available [facility] Manual Order Only [address], [place], [address], 12/16/2018 00:14:06 12/12/19 19 12/11/2018 lipid panel , serum non-HDL cholesterol 97 mg/dL _(jorge alberto c) <130 For patie nts with diabe mayda plus 1 major ASCVD risk facto r, treat ing to a non-H DL-C goal of <100 mg/dL (LDL- C of <70 mg/dL ) is consi dered a christos aldrich n. Not Available [facility] - Manual Order Only [address], [place], [address], 12/16/2018 00:14:06 12/12/19 19 12/11/2018 lipid panel , serum TG/HDL-C 3.8 calc <2.0 high Not Available [facility] - Manual Order Only [address], [place], [address], 12/16/2018 00:14:06 12/12/1912/11/2018 CBC w/ diff WBC 7.0 K/uL 3.7-11 .0 Not Available [facility] - Manual Order Only [address], [place], [address], 12/16/2018 00:14:06 12/12/19 19 12/11/2018 CBC w/ diff RBC 5.65 M/uL 4.06-5 .70 Not Available [facility] - Manual Order Only [address], [place], [address], 12/16/2018 00:14:06 12/12/19 19 12/11/2018 CBC w/ diff hemoglobin 15.1 g/dL 12.4-1 6.9 The refer ence inter itz for red blood count , hemog lobin and hemat ocrit are based on the centr al 95th perce ntile distr ibuti on of resul ts seen for [facility] patie nts. This range does [...] Res Opin 2009; 25:11 43). Not Available [facility] - Manual Order Only [address], [place], [address], 12/16/2018 00:14:06 12/12/19 19 12/11/2018 CBC w/ diff hematocrit 47.2 % 36.7-4 8.6 Not Available [facility] - Manual Order Only [address], [place], [address], 12/16/2018 00:14:06 12/12/1912/11/2018 CBC w/ diff MCV 83.5 fL 79.0-9 9.0 Not Available [facility] - Manual Order Only [address], [place], [address], 12/16/2018 00:14:06 12/12/19 19 12/11/2018 CBC w/ diff MCH 26.7 pg 28.0-3 3.0 low Not Available [facility] - Manual Order Only [address], [place], [address], 12/16/2018 00:14:06 12/12/19 19 12/11/2018 CBC w/ diff MCHC 32.0 g/dL 32.0-3 6.0 Not Available [facility] - Manual Order Only [address], [place], [address], 12/16/2018 00:14:06 12/12/19 19 12/11/2018 CBC w/ diff red cell distribution width 13.3 % 11.7-1 5.2 Not Available [facility] - Manual Order Only [address], [place], [address], 12/16/2018 00:14:06 12/12/19 19 12/11/2018 CBC w/ diff platelet count 231 K/uL 150-40 0 Not Available [facility] - Manual Order Only [address], [place], [address], 12/16/2018 00:14:06 12/12/19 19 12/11/2018 CBC w/ diff mean platelet volume 9.5 fL 7.2-13 .0 Not Available [facility] - Manual Order Only [address], [place], [address], 12/16/2018 00:14:06 12/12/19 19 12/11/2018 CBC w/ diff neutrophil % 57.7 % 40.0-7 4.0 Not Available [facility] - Manual Order Only [address], [place], [address], 12/16/2018 00:14:06 12/12/19 19 12/11/2018 CBC w/ diff neutrophil absolute 4.05 K/uL 1.50-7 .50 Not Available [facility] - Manual Order Only [address], [place], [address], 12/16/2018 00:14:06 12/12/19 19 12/11/2018 CBC w/ diff lymphocyte % 29.1 % 19.0-4 8.0 Not Available [facility] - Manual Order Only [address], [place], [address], 12/16/2018 00:14:06 12/12/19 19 12/11/2018 CBC w/ diff lymphocyte absolute 2.04 K/uL 1.00-4 .50 Not Available [facility] - Manual Order Only [address], [place], [address], 12/16/2018 00:14:06 12/12/19 19 12/11/2018 CBC w/ diff monocyte % 8.5 % 4.0-12 .0 Not Available [facility] - Manual Order Only [address], [place], [address], 12/16/2018 00:14:06 12/12/19 19 12/11/2018 CBC w/ diff monocyte absolute 0.60 K/uL 0.10-0 .80 Not Available [facility] - Manual Order Only [address], [place], [address], 12/16/2018 00:14:06 12/12/19 19 12/11/2018 CBC w/ diff eosinophil % 3.8 % 0.0-6. 0 Not Available [facility] - Manual Order Only [address], [place], [address], 12/16/2018 00:14:06 12/12/19 19 12/11/2018 CBC w/ diff eosinophil absolute 0.27 K/uL 0.00-0 .50 Not Available [facility] - Manual Order Only [address], [place], [address], 12/16/2018 00:14:06 12/12/19 19 12/11/2018 CBC w/ diff basophil % 0.9 % 0.0-2. 0 Not Available [facility] - Manual Order Only [address], [place], [address], 12/16/2018 00:14:06 12/12/19 19 12/11/2018 CBC w/ diff basophil absolute 0.06 K/uL 0.00-0 .20 Not Available [facility] - Manual Order Only [address], [place], [address], 12/16/2018 00:14:06 12/12/19 19 12/11/2018 CMP, serum [...] on a subse quent day. Not Available [facility] - Manual Order Only [address], [place], [address], 12/16/2018 00:14:06 12/12/19 19 12/11/2018 CMP, serum or plasm a calcium 9.5 mg/dL 8.5-10 .5 Not Available [facility] - Manual Order Only [address], [place], [address], 12/16/2018 00:14:06 12/12/19 19 12/11/2018 CMP, serum or plasm a sodium 138 mmol/ L 136-14 5 Not Available [facility] - Manual Order Only [address], [place], [address], 12/16/2018 00:14:06 12/12/1912/11/2018 CMP, serum or plasm a potassium 4.7 mmol/ L 3.5-5. 1 Not Available [facility] - Manual Order Only [address], [place], [address], 12/16/2018 00:14:06 12/12/1912/11/2018 CMP, serum or plasm a chloride 95 mmol/ L 95-108 Not Available [facility] - Manual Order Only [address], [place], [address], 12/16/2018 00:14:06 12/12/19 19 12/11/2018 CMP, serum or plasm a CO2 (carbon dioxide) 28 mmol/ L 21-33 Not Available [facility] - Manual Order Only [address], [place], [address], 12/16/2018 00:14:06 12/12/19 19 12/11/2018 CMP, serum or plasm a BUN (blood urea nitrogen) 11 mg/dL 8-23 Not Available [facility] - Manual Order Only [address], [place], [address], 12/16/2018 00:14:06 12/12/19 19 12/11/2018 CMP, serum or plasm a creatinine 0.75 mg/dL 0.72-1 .30 Not Available [facility] - Manual Order Only [address], [place], [address], 12/16/2018 00:14:06 12/12/19 19 12/11/2018 CMP, serum or plasm a albumin 4.4 g/dL 3.5-5. 5 Not Available [facility] - Manual Order Only [address], [place], [address], 12/16/2018 00:14:06 12/12/19 19 12/11/2018 CMP, serum or plasm a total protein 7.2 g/dL 6.1-8. 0 Not Available [facility] - Manual Order Only [address], [place], [address], 12/16/2018 00:14:06 12/12/19 19 12/11/2018 CMP, serum or plasm a globulin 2.8 g/dL 1.8-3. 8 Not Available [facility] - Manual Order Only [address], [place], [address], 12/16/2018 00:14:06 12/12/19 19 12/11/2018 CMP, serum or plasm a alkaline phosphatase 77 U/L <150 Not Available [facility] - Manual Order Only [address], [place], [address], 12/16/2018 00:14:06 12/12/19 19 12/11/2018 CMP, serum or plasm a alanine aminotransfe rase (ALT) 42 U/L <51 Not Available [facility] - Manual Order Only [address], [place], [address], 12/16/2018 00:14:06 12/12/19 19 12/11/2018 CMP, serum or plasm a aspartate aminotransfe rase (AST) 30 U/L <41 Not Available [facility] - Manual Order Only [address], [place], [address], 12/16/2018 00:14:06 12/12/19 19 12/11/2018 CMP, serum or plasm a bilirubin, total 0.3 mg/dL <1.3 Not Available [facility] - Manual Order Only [address], [place], [address], 12/16/2018 00:14:06 12/12/19 19 12/11/2018 CMP, serum or plasm a eGFR male 99 mL/mi n/1.7 3m_sq uared >60 Not Available [facility] - Manual Order Only [address], [place], [address], 12/16/2018 00:14:06 12/12/19 19 12/11/2018 CMP, serum or plasm a eGFR male descent 115 mL/mi n/1.7 3m_sq uared >60 Not Available [facility] - Manual Order Only [address], [place], [address], 12/16/2018 00:14:06 12/12/19 19 12/11/2018 TSH, serum or plasm a thyroid stimulating hormone 1.220 ulu/m L 0.400- 4.500 Not Available [facility] - Manual Order Only [address], [place], [address], 12/16/2018 00:14:07 12/12/19 19 12/11/2018 HbA1c (hemo [...] diabe mayda for child fanny. Not Available [facility] - Manual Order Only [address], [place], [address], 12/16/2018 00:14:07 12/12/19 19 12/11/2018 HbA1c (hemo [...] Care 2008; 31:14 73-14 78). Not Available [facility] - Manual Order Only [address], [place], [address], 12/16/2018 00:14:07 12/12/19 19 12/11/2018 mpo (myel [...] rohit cteri stics deter mined by the [facility] It has not been clear ed or appro cornelius by the U.S. FDA. The [facility] is regul ated under [facility] atory Impro vemen t Amend ments (CLIA ) as quali fied to perfo rm high- compl exity testi ng. This test is used for clini jorge alberto purpo ses. It shoul d not be regar ded as inves tigat ional or for resea rch. Not Available [facility] - Manual Order Only [address], [place], [address], 12/16/2018 00:14:07 12/12/19 19 12/11/2018 vitam in [...] rohit cteri stics deter mined by the [facility] It has not been clear ed or appro cornelius by the U.S. FDA. The [facility] is regul ated under Clini j[facility] alberto Labor atory Impro vemen t Amend ments (CLIA ) as quali fied to perfo rm high- compl exity testi ng. This test is used for clini jorge alberto purpo ses. It shoul d not be regar ded as inves tigat ional or for resea rch. Not Available [facility] - Manual Order Only [address], [place], [address], 12/16/2018 00:14:08 12/12/1912/11/2018 nmr lipop rofil e, [...] rohit cteri stics deter mined by [facility] It has not been clear ed or appro cornelius by the U.S. FDA. The [facility] is regul ated under [facility]ini j[facility] alberto Labor atory Impro vemen t Amend ments (CLIA ) as quali fied to perfo rm high- compl exity testi ng. This test is used for clini jorge alberto purpo ses. It shoul d not be regar ded as inves tigat ional or for resea rch. Not Available [facility] - Manual Order Only [address], [place], [address], 12/16/2018 00:14:08 12/12/19 19 12/11/2018 nmr lipop rofil e, serum small LDL-P 783 nmol/ L <467 high Relat tim risk: Optim al <467; Moder ate 467-8 20; High >820 nmol/ L. Refer ence range is <1408 nmol/ L. Not Available [facility] - Manual Order Only [address], [place], [address], 12/16/2018 00:14:08 12/12/1912/11/2018 nmr lipop rofil e, serum LDL size 20.2 nm >20.5 low Relat tim risk: Optim al >20.5 ; High <20.6 nm. Refer ence range is 20.0- 22.3 nm. Not Available [facility] - Manual Order Only [address], [place], [address], 12/16/2018 00:14:08 12/12/1912/11/2018 nmr lipop rofil e, serum HDL-P 38.5 umol/ L >32.8 Relat tim risk: Optim al >32.8 ; Moder ate 29.2- 32.8; High <29.2 umol/ L. Refer ence range is 21.1- 43.4 umol/ L. Not Available [facility] - Manual Order Only [address], [place], [address], 12/16/2018 00:14:08 12/12/1912/11/2018 nmr lipop rofil e, serum large HDL-P <3.0 umol/ L >7.2 low Relat tim risk: Optim al >7.2; Moder ate 5.3-7 .2; High <5.3 umol/ L. Refer ence range is >3.5 umol/ L. Not Available [facility] - Manual Order Only [address], [place], [address], 12/16/2018 00:14:08 12/12/19 19 12/11/2018 nmr lipop rofil e, serum HDL size 8.2 nm >9.0 low Relat tim risk: Optim al >9.0; Moder ate 8.7-9 .0; High <8.7 nm. Refer ence range is 8.3-1 0.5 nm. Not Available [facility] - Manual Order Only [address], [place], [address], 12/16/2018 00:14:08 12/12/1912/11/2018 nmr lipop rofil e, serum large VLDL-P 6.4 nmol/ L <3.7 high Relat tim risk: Optim al <3.7; Moder ate 3.7-6 .1; High >6.1 nmol/ L. Refer ence range is <16.0 nmol/ L. Not Available [facility] - Manual Order Only [address], [place], [address], 12/16/2018 00:14:08 12/12/1912/11/2018 nmr lipop rofil e, serum VLDL size 51.6 nm <47.1 high Relat tim risk: Optim al <47.1 ; Moder ate 47.1- 49.0; High >49.0 nm. Refer ence range is 41.1- 61.7 nm. Not Available [facility] - Manual Order Only [address], [place], [address], 12/16/2018 00:14:08 12/12/1912/11/2018 urina lysis , dipst ick color YELLOW colorl ess-da rk yellow Not Available [facility] - Manual Order Only [address], [place], [address], 12/16/2018 00:14:08 12/12/1912/11/2018 urina lysis , dipst ick turbidity CLEAR clear Not Available [facility] - Manual Order Only [address], [place], [address], 12/16/2018 00:14:08 12/12/1912/11/2018 urina lysis , dipst ick glucose 1000 mg/dL <30 high Not Available [facility] - Manual Order Only [address], [place], [address], 12/16/2018 00:14:08 12/12/19 19 12/11/2018 urina lysis , dipst ick bilirubin <0.5 mg/dL <0.5 Not Available [facility] - Manual Order Only [address], [place], [address], 12/16/2018 00:14:08 12/12/1912/11/2018 urina lysis , dipst ick ketones NEGATI VE negati ve Not Available [facility] - Manual Order Only [address], [place], [address], 12/16/2018 00:14:08 12/12/1912/11/2018 urina lysis , dipst ick specific gravity 1.024 1.005- 1.035 Not Available [facility] - Manual Order Only [address], [place], [address], 12/16/2018 00:14:08 12/12/19 19 12/11/2018 urina lysis , dipst ick hemoglobin/b lood NEGATI VE negati ve Not Available [facility] - Manual Order Only [address], [place], [address], 12/16/2018 00:14:08 12/12/19 19 12/11/2018 urina lysis , dipst ick pH 6.5 5.0-8. 0 Not Available [facility] - Manual Order Only [address], [place], [address], 12/16/2018 00:14:08 12/12/19 19 12/11/2018 urina lysis [...] inter preti ng resul ts. Not Available [facility] - Manual Order Only [address], [place], [address], 12/16/2018 00:14:08 12/12/19 19 12/11/2018 urina lysis , dipst ick urobilinogen <2 mg/dL <2 Not Available [facility] - Manual Order Only [address], [place], [address], 12/16/2018 00:14:08 12/12/19 19 12/11/2018 urina lysis , dipst ick nitrite NEGATI VE negati ve Not Available [facility] - Manual Order Only [address], [place], [address], 12/16/2018 00:14:08 12/12/19 19 12/11/2018 urina lysis , dipst ick leukocyte esterase <25 andreia/u L <25 Not Available [facility] - Manual Order Only [address], [place], [address], 12/16/2018 00:14:08 12/12/19 19 12/11/2018 urina lysis , dipst ick UWBC NONE cells /hpf 0-5 Not Available [facility] - Manual Order Only [address], [place], [address], 12/16/2018 00:14:08 12/12/19 19 12/11/2018 urina lysis , dipst ick URBC 0-2 cells /hpf 0-2 Not Available [facility] - Manual Order Only [address], [place], [address], 12/16/2018 00:14:08 12/12/1912/11/2018 urina lysis , dipst ick epithelial cells NONE cells /hpf 0-5 Not Available [facility] - Manual Order Only [address], [place], [address], 12/16/2018 00:14:08 12/12/1912/11/2018 urina lysis , dipst ick bacteria NONE hpf none Not Available [facility] - Manual Order Only [address], [place], [address], 12/16/2018 00:14:08 12/12/1912/11/2018 urina lysis , dipst ick hyaline casts NONE cells /lpf <10 Not Available [facility] - Manual Order Only [address], [place], [address], 12/16/2018 00:14:08 12/12/1912/11/2018 visua l acuit y* Status if not performed Patien t satisf ied w/ anothe r provid er Not Available [facility] [address] [facility] [place], [address], 12/11/2018 09:26:33 12/12/1912/11/2018 elect vasquez elmore am Vent Rate 83 Not Available [facility] [address] [facility] [address], [place], [address], 12/11/2018 09:26:32 12/12/1912/11/2018 elect vasquez elmore am OR Inst 208 Not Available [facility] [address] [facility] [address], [place], [address], 12/11/2018 09:26:32 12/12/1912/11/2018 elect vasquez elmore am QRS dur 86 Not Available [facility] [address] [facility] [address], [place], [address], 12/11/2018 09:26:32 12/12/1912/11/2018 elect vasquez diogr am QT/QTc 357/39 7 Not Available [facility] [address] [address], [place], [address], 12/11/2018 09:26:32 12/12/19 19 12/11/2018 elect vasquez diogr am P-R-T 24 31 41 Not Available [facility] [address] [place] [address], [place], [address], 12/11/2018 09:26:32 12/12/1912/11/2018 ghassan metry FVC 3.65 Not Available [facility] [address] [address], [place], [address], 12/11/2018 09:26:32 12/12/1912/11/2018 ghassan metry FEV1 3.19 Not Available [facility] [address] [place] [address], [place], [address], 12/11/2018 09:26:32 12/12/1912/11/2018 ghassan metry FEV1/FVC (%) 87.5 Not Available [facility] [address] [address], [place], [address], 12/11/2018 09:26:32 12/12/1912/11/2018 ghassan metry [id number] (L/s) 4.79 Not Available [facility] [address] [address], [place], [address], 12/11/2018 09:26:32 12/12/1912/11/2018 ghassan metry PEF (L/s) 6.73 Not Available [facility] [address] [address], [place], [address], 12/11/2018 09:26:32 12/12/19 19 12/11/2018 ghassan metry FET (s) 5.87 Not Available [facility] [address] [address], [place], [address], 12/11/2018 09:26:32 12/12/1912/11/2018 audio gram 500hz- LEFT 30 Not Available [facility] [address] [facility] [address], [place], [address], 12/11/2018 09:26:32 12/12/1912/11/2018 audio gram 500hz- RIGHT 30 Not Available [facility] [address] [facility] [address], [place], [address], 12/11/2018 09:26:32 12/12/1912/11/2018 audio gram 1000hz- LEFT 30 Not Available [facility] [address] [facility] [address], [place], [address], 12/11/2018 09:26:32 12/12/1912/11/2018 audio gram 1000hz- RIGHT 30 Not Available [facility] [address] [facility] [address], [place], [address], 12/11/2018 09:26:32 12/12/1912/11/2018 audio gram 2000hz- LEFT 30 Not Available [facility] [address] [facility] [address], [place], [address], 12/11/2018 09:26:32 12/12/1912/11/2018 audio gram 2000hz- RIGHT 30 Not Available [facility] [address] [facility] [address], [place], [address], 12/11/2018 09:26:32 12/12/1912/11/2018 audio gram 4000hz- LEFT 40 Not Available [facility] [address] [facility] [address], [place], [address], 12/11/2018 09:26:32 12/12/1912/11/2018 audio gram 4000hz- RIGHT 30 Not Available [facility] [address] [facility] [address], [place], [address], 12/11/2018 09:26:32 12/12/1912/11/2018 audio gram 6000hz- LEFT 40 Not Available [facility] [address], [address], 12/11/2018 09:26:32 12/12/1912/11/2018 audio gram 6000hz- RIGHT 30 Not Available [facility] [address], [address], 12/11/2018 09:26:32 12/12/1912/11/2018 audio gram 8000hz- LEFT 60 Not Available [facility] [address], [address], 12/11/2018 09:26:32 12/12/1912/11/2018 audio gram 8000hz- RIGHT 60 Not Available [facility] [address], [address], 12/11/2018 09:26:32 12/12/1912/11/2018 body compo sitio n nabeel sis (PROC ) Status if Not Performed Other: see note Not Available [facility] [address] [place] [address], [address], 12/11/2018 09:26:31 12/12/1912/11/2018 mini menta l state exam* Status if not performed Other: see note Not Available [facility] [address] [place] [address], [address], 12/11/2018 09:26:31 12/12/1912/11/2018 funct ional asses sment scree roc* Gender Men Not Available [facility] [address], [address], 12/11/2018 09:26:31 12/12/1912/11/2018 funct ional asses sment scree roc* Result Dissat isfied Not Available [facility] [address], [address], 12/11/2018 09:26:31 12/12/1912/11/2018 epwor th sleep iness scale * Total Score 12 Not Available [facility] [address] [place] [address], [place], [address], 12/11/2018 09:26:31 12/12/19 19 12/11/2018 epwor th sleep iness scale * Indication 10-12 Border line Not Available [facility] [address] [place] [address], [place], [address], 12/11/2018 09:26:31 12/12/19 19 12/11/2018 cano anxie ty inven tory* Total Score 2 Not Available [facility] [address] [place] [address], [place], [address], 12/11/2018 09:26:30 12/12/19 19 12/11/2018 cano anxie ty inven tory* Indication 0-7 Minim al Anxiet y Not Available [facility] [address] [place] [address], [address], 12/11/2018 09:26:30 12/12/19 19 12/11/2018 (SAMMIE) ankle brach ial index * ARM- Right 130 Not Available [facility] t Office [address] [place] [address], [address], 12/11/2018 09:26:30 12/12/19 19 12/11/2018 (SAMMIE) ankle brach ial index * ARM- Left 130 Not Available [facility] [address] [place] [address], [address], 12/11/2018 09:26:30 12/12/19 19 12/11/2018 (SAMMIE) ankle brach ial index * LEG- Right 112 Not Available [facility] t Office [address] [place] [address], [place], [address], 12/11/2018 09:26:30 12/12/19 19 12/11/2018 (SAMMIE) ankle brach ial index * LEG- Left 112 Not Available [facility] [address] [place] [address], [place], [address], 12/11/2018 09:26:30 12/12/19 19 12/11/2018 (SAMMIE) ankle brach ial index * SAMMIE PRESSURE- Right 0.9 Not Available [facility] ct Office [address], [address], 12/11/2018 09:26:30 12/12/19 19 12/11/2018 (SAMMIE) ankle brach ial index * SAMMIE PRESSURE- Left 0.9 Not Available [facility] [address] [address], [place], [address], 12/11/2018 09:26:30 12/26/19 19 12/25/2018 fecal occul t blood , immun oassa y, stool iFOB negati ve Not Available [facility] [address] [place] [address], [address], 12/25/2018 09:57:43 04/26/1904/27/2019 lipid panel , serum cholesterol, total 132 mg/dL <200 normal Not Available [facility] [address], [place], [address], 04/27/2019 07:40:19 04/26/1904/27/2019 lipid panel , serum HDL cholesterol 42 mg/dL > or = 40 normal Not Available [facility] [email or web address], [place], [address], 04/27/2019 07:40:19 04/26/1904/27/2019 lipid panel , serum triglyceride s 267 mg/dL <150 high If a non-f astin g speci men was colle cted, consi josé miguel repea t trigl yceri de testi ng on a fasti ng speci men if clini mateusz indic ated. Savage nolasco et al. J. of Clin. Lipid ol. 2015; 9:129 -169. Not Available [facility] [address], [place], [address], 04/27/2019 07:40:19 04/26/19 20 04/27/2019 lipid panel [...] 310(1 9): 2061- 2068 (http ://ed ucati on.[employer] dawnLiveset. Gratci/f aq/FA Q164) Not Available [facility] [address] [facility], [place], [address], 04/27/2019 07:40:19 04/26/1904/27/2019 lipid panel , serum chol/HDLC ratio 3.1 (calc ) <5.0 normal Not Available [facility] [address] [facility] [facility], [place], [address], 04/27/2019 07:40:19 04/26/1904/27/2019 lipid panel , serum non HDL cholesterol 90 mg/dL _(jorge alberto c) <130 normal For patie nts with diabe mayda plus 1 major ASCVD risk facto r, treat ing to a non-H DL-C goal of <100 mg/dL (LDL- C of <70 mg/dL ) is consi dered a thera peuti c optio n. Not Available [facility] [address] [facility], [place], [address], 04/27/2019 07:40:19 04/26/1904/27/2019 CMP, serum or plasm a glucose 205 mg/dL 65-99 high Fasti ng refer ence inter itz For someo ne witho ut known diabe mayda, a gluco se value >125 mg/dL indic ates that they may have diabe mayda and this shoul d be confi rmed with a follo w-up test. Not Available [facility] [address] [facility] [place] [place], [address], 04/27/2019 07:40:19 04/26/19 20 04/27/2019 CMP, serum or plasm a urea nitrogen (BUN) 10 mg/dL 7-25 normal Not Available [facility] [address] [facility] [place], [address], 04/27/2019 07:40:19 04/26/1904/27/2019 CMP, serum or plasm a creatinine 0.73 mg/dL 0.70-1 .25 normal For patie nts >49 years of age, the refer ence limit for Creat inine is appro ximat gaudencio 13% highe r for peopl e ident ified as Afric an-Am agnes n. Not Available [facility] [address] [facility] [place] [place], [address], 04/27/2019 07:40:19 04/26/1904/27/2019 CMP, serum or plasm a eGFR non-afr. nepalese 100 mL/mi n/1.7 3m2 > or = 60 normal Not Available [facility] [address] [place], [address], 04/27/2019 07:40:19 04/26/19 20 04/27/2019 CMP, serum or plasm a eGFR 116 mL/mi n/1.7 3m2 > or = 60 normal Not Available [facility] [address] [place], [address], 04/27/2019 07:40:19 04/26/1904/27/2019 CMP, serum or plasm a BUN/creatini ne ratio NOT APPLIC ABLE (calc ) 6-22 Not Available [facility] [address] [facility] [place], [address], 04/27/2019 07:40:19 04/26/19 20 04/27/2019 CMP, serum or plasm a sodium 136 mmol/ L 135-14 6 normal Not Available [facility] [address] [facility] [place], [address], 04/27/2019 07:40:19 04/26/19 20 04/27/2019 CMP, serum or plasm a potassium 5.5 mmol/ L 3.5-5. 3 high Not Available [facility] [address] [facility] [facility] [place], [address], 04/27/2019 07:40:19 04/26/19 20 04/27/2019 CMP, serum or plasm a chloride 99 mmol/ L 98-110 normal Not Available [facility] [address] [facility] [facility] [place] [place], [address], 04/27/2019 07:40:19 04/26/19 20 04/27/2019 CMP, serum or plasm a carbon dioxide 32 mmol/ L 20-32 normal Not Available [facility] [address] [facility] [place] [place], [address], 04/27/2019 07:40:19 04/26/19 20 04/27/2019 CMP, serum or plasm a calcium 9.9 mg/dL 8.6-10 .3 normal Not Available [facility] [place], [address], 04/27/2019 07:40:19 04/26/19 20 04/27/2019 CMP, serum or plasm a protein, total 7.0 g/dL 6.1-8. 1 normal Not Available [facility] [address] [facility] [place] [place], [address], 04/27/2019 07:40:19 04/26/19 20 04/27/2019 CMP, serum or plasm a albumin 4.3 g/dL 3.6-5. 1 normal Not Available [facility] [address] [place], [address], 04/27/2019 07:40:19 04/26/1904/27/2019 CMP, serum or plasm a globulin 2.7 g/dL_ (calc ) 1.9-3. 7 normal Not Available [facility] [address] [facility] [place] [place], [address], 04/27/2019 07:40:19 04/26/1904/27/2019 CMP, serum or plasm a albumin/glob ulin ratio 1.6 (calc ) 1.0-2. 5 normal Not Available [facility] [address] [facility] [place] [place], [address], 04/27/2019 07:40:19 04/26/1904/27/2019 CMP, serum or plasm a bilirubin, total 0.4 mg/dL 0.2-1. 2 normal Not Available [facility] [address] [facility] [place] [place], [address], 04/27/2019 07:40:19 04/26/1904/27/2019 CMP, serum or plasm a alkaline phosphatase 81 U/L 35-144 normal Not Available [facility] [address] [facility] [place], [address], 04/27/2019 07:40:19 04/26/1904/27/2019 CMP, serum or plasm a AST 17 U/L 10-35 normal Not Available [facility] [facility] [place], [address], 04/27/2019 07:40:19 04/26/1904/27/2019 CMP, serum or plasm a ALT 24 U/L 9-46 normal Not Available [facility] [address] [facility] [place] [place], [address], 04/27/2019 07:40:19 04/26/1904/26/2019 HbA1c (hemo globi n A1c), blood HbA1C 8.7 Not Available [facility] [address] [place], [place] [address]y , [place], [address], 04/26/2019 13:09:58 04/26/1904/26/2019 CBC w/ auto diff WBC 7.0 K/uL 4.6-10 .2 Not Available [facility] [address] [place] [address], [address], 04/26/2019 13:10:23 04/26/1904/26/2019 CBC w/ auto diff lym 2.4 K/uL 0.6-3. 4 Not Available [facility] [address] [place] [address], [place], [address], 04/26/2019 13:10:23 04/26/1904/26/2019 CBC w/ auto diff lym % 33.8 %L 10.0-5 0.0 Not Available [facility] [address] [place] [address], [address], 04/26/2019 13:10:23 04/26/1904/26/2019 CBC w/ auto diff *mid 0.6 K/uL 0.0-0. 9 Not Available [facility] [address] [place] [address], [address], 04/26/2019 13:10:23 04/26/1904/26/2019 CBC w/ auto diff *mid % 8.5 %M 0.0-12 .0 Not Available [facility] [address] [place] [address], [address], 04/26/2019 13:10:23 04/26/1904/26/2019 CBC w/ auto diff gran 4.0 K/uL 2.0-6. 9 Not Available [facility] [address] [place] [address], [address], 04/26/2019 13:10:23 04/26/1904/26/2019 CBC w/ auto diff gran% 57.7 %g 37.0-8 0.0 Not Available [facility] [address] [place] [address], [address], 04/26/2019 13:10:23 04/26/1904/26/2019 CBC w/ auto diff RBC 5.09 M/uL 4.04-5 .48 Not Available [facility] [address] [place], [place] [address], [address], 04/26/2019 13:10:23 04/26/1904/26/2019 CBC w/ auto diff HGB 14.3 g/dL 12.2-1 5. Not Available [facility] [address] [place] [address], [address], 04/26/2019 13:10:23 04/26/1904/26/2019 CBC w/ auto diff HCT 43.7 % 37.7-4 7.9 Not Available [facility] [address] [place] [address], [address], 04/26/2019 13:10:23 04/26/1904/26/2019 CBC w/ auto diff MCV 85.8 fL 80.0-9 7.0 Not Available [facility] [address] [place] [address], [address], 04/26/2019 13:10:23 04/26/1904/26/2019 CBC w/ auto diff MCH 28.1 pg 27.0-3 1.2 Not Available [facility] [address] [place] [address], [address], 04/26/2019 13:10:23 04/26/1904/26/2019 CBC w/ auto diff MCHC 32.7 g/dL 31.8-3 5.4 Not Available [facility] [address] [place] [address], [address], 04/26/2019 13:10:23 04/26/1904/26/2019 CBC w/ auto diff RDW 15.8 % 11.6-1 4.8 high Not Available [facility] [address] [address], [place], [address], 04/26/2019 13:10:23 04/26/19 20 04/26/2019 CBC w/ auto diff plt 237 K/uL 142.-4 24. 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 Not Available [facility] [address] [facility], [place], [address], 09/26/2019 07:05:23 Result Notes None recorded. Problems Name Problem SNOMED Code Status Onset Date Resolution Date Notes Provider Name and Address Organization Details Recorded Time Diabetes mellitus 48937653 Active 2017 Last Dennison III, MD [address] [address], [place], [address], [facility] 8 09:27:57 Seasonal allergy 608358087 Active 2017 [place] III[place] [address], [address], [facility] 8 09:27:59 Mixed hypercholes terolemia and hypertrigly ceridemia 686421648 Active 2017 Last Dennison III, [place] [address], [address], [facility] Internal [facility] 8 09:28:01 Vitamin D deficiency 83814276 Active 2017 Last Dennison III, [place] [address], [address], [facility] Internal [facility] 8 09:28:03 Allergic rhinitis 46317760 Active 2017 Last Dennison III, [place] [address], [address], [facility] Internal [facility] 8 09:28:08 Essential hypertensio n 65376938 Active 2017 Last Dennison III, [place] [address], [address], [facility] Internal [facility] 8 09:28:09 Plantar wart of left foot 4312573035090 9102 Active 2017 Last Dennison III, MD [address], [address], [facility] Internal [facility] 8 09:28:14 Coronary arterioscle rosis in [place] artery 2811511096434 Active 2017 Last Dennison III, MD [address], [address], [facility] 8 09:28:47 Sinusitis 69515471 Active 2018 [facility] Internal [facility] 9 09:55:32 Alcoholism 5829620 Active 2018 Last Dennison III, MD [address], [address], [facility] Internal [facility] 9 11:28:50 Sleep apnea 02565576 Active 2018 Last Dennison III, MD [address], [address], [facility] Internal [facility] 9 12:22:22 Problem Notes None recorded. Procedures Surgical History Date Name Laterality Status Provider Name and Address Organization Details Recorded Time 9 Fall Risk completed [facility] 12/25/2018 08:15:54 9 Depression Screening completed [facility] 12/25/2018 08:15:54 9 Procedure completed Last Dennison III, MD [address], [address], [facility] 12/26/2018 09:18:28 9 CHERELLE SPRING completed [facility] 12/25/2018 08:15:54 9 Alcohol Use Screening completed [facility] 12/25/2018 08:15:54 8 Fall Risk completed [facility] 10/04/2017 08:37:14 8 Procedure completed Last Dennison III, MD [address], [address], [facility] Internal [facility] 10/05/2017 19:23:22 8 CHERELLE SPRING completed [facility] 10/04/2017 08:37:14 8 Allergy Injection completed [facility] 03/08/2017 08:37:22 7 Colonoscopy completed Last Dennison III, MD [address], [address], [facility] 03/08/2017 11:04:51 Imaging Results [...] completed Not Available Not Available Not Available [facility] 10 billion cell-200 mg sprinkle [...] No t Available [employer] [facility] 14 Day [place] active Not Available Not Available N ot [...] Updated DateTime 9 182.88 cm 32.7 kg/m2 831629. 76 g 100 % 100 % 68 /min 130 mm[Hg] 70 mm[Hg] Astrid [facility] 9 09:27:40 Date Recorded Body height Body mass index (BMI) Body weight Heart rate Respiratory rate Systolic blood pressure Diastolic blood pressure Provider Name and Address Organization Details Last Updated DateTime 9 182.88 cm 32.7 kg/m2 173522. 76 g 72 /min 18 /min 130 mm[Hg] 70 mm[Hg] Last Dennison III[place] [address], [address] [place] [address] Internal Med 9 10:16:13 Date Recorded Body height Body mass index (BMI) Body weight Body temperature Systolic blood pressure Diastolic blood pressure Provider Name and Address Organization Details Last Updated DateTime 9 182.88 cm 32.8 kg/m2 736525. 35 g 99.3 [degF] 130 mm[Hg] 80 mm[Hg] Astrid Jones [facility] 9 08:16:16 Date Recorded Heart rate Oxygen saturation Oxygen saturation in Arterial blood by Pulse oximetry Respiratory rate Provider Name and Address Organization Details Last Updated DateTime 12/25/2018 84 /min 92 % 92 % 18 /min Last Dennison III, MD [address], [address] [place] [address] 9 12:21:27 Date Recorded Body height Body mass index (BMI) Body weight Oxygen saturation Oxygen saturation in Arterial blood by Pulse oximetry Systolic blood pressure Diastolic blood pressure Provider Name and Address Organization Details Last Updated DateTime 0 182.88 cm 30.5 kg/m2 608368. 28 g 98 % 98 % 110 mm[Hg] 70 mm[Hg] Jsoie Vogel [facility] 0 11:24:25 Date Recorded Heart rate Respiratory rate Systolic blood pressure Diastolic blood pressure Provider Name and Address Organization Details Last Updated DateTime 04/26/2019 72 /min 18 /min 120 mm[Hg] 64 mm[Hg] Last Dennison III, MD [address], [address] [facility] 04/26/2019 11:34:36 Social History Question Answer Notes LastModified by Organizat ion Details LastModified Time Tobacco Smoking Status Never Smoker Not Available [facility] 12/25/2019 03:49:25 What Was The Date Of Your Most Recent Tobacco Screening? 10/05/2017 [id number] Information not available 12/25/2019 Sex: Unknown Functional [...] 9 completed Last Dennison III, MD [address], [address] 03/08/2017 10:58:46 Pneumococcal conjugate PCV 13 5 completed Last Dennison III, MD 9517 [facility] [address] [place], [address] 03/08/2017 10:59:19 zoster recombinant 9 completed Not Available [facility] 03/10/2019 02:28:34 zoster recombinant 9 completed Not Available [facility] 03/10/2019 02:28:34 Influenza, recombinant, quadrivalent, PF 9 completed Not Available [facility] 03/10/2019 02:28:37 Tdap 9 completed Not Available [facility] 03/10/2019 02:28:32 zoster recombinant 8 completed Josie akhtar [facility] Internal [facility] 04/04/2018 08:24:16 Influenza, split virus, quadrivalent, preservative 7 completed Josie akhtar [facility] Internal [facility] 09/20/2017 10:20:04 Past Encounters Encounter ID Performer Location Encounter Start Date Encounter Closed Date Diagnosis/Indication Diagnosis SNOMED-CT Code Diagnosis ICD10 Code Diagnosis Note [id number] Last Dennison III, MD [facility] [address] [address] 03/03/2017 14:21:13 03/03/2017 15:53:16 Plantar wart of left foot 1649707716 5435753 B07.0 Lethargy 323415745 R53.8 3 Muscle weakness 73306136 M62.81 Type 2 ailin betes mellitus 35181688 E11.65 Uncontroll ed type 2 diabetes mellitus 654656712 E11.65 [id number] Last Dennison III, MD [facility] [address], [place] [address] 03/08/2017 08:26:29 03/08/2017 09:22:49 Diabetes mellitus 74355847 E11.9 poor control with A1C of 9.8 on therapy will in insulin Tx. Seasonal allergy 1867818 04 J30.2 Coronary arteriosclerosis in [place] artery 0147934277 107 I25.10 Mixed hypercholesterolemia and hypertriglyceridemia 491602037 E78.2 Vitamin D deficiency 347 65367 E55.9 Allergic rhinitis 729729 04 J30.9 Essential hypertension 96507324 I10 Plantar wa rt of left foot 1057580722 4591583 B07.0 [id number] Last Dennison III, MD [facility] [address] [address] 04/20/2017 12:56:32 04/20/2017 14:58:53 Diabetes mellitus 00835853 E11.9 poor control with A1C of 9.8 on therapy will in insulin Tx. and repeat A1C today ahead of his 05/03/17 appt. Allergic rhinitis 232948 04 J30.9 Mixed hypercholesterolemia and hypertriglyceridemia 745738380 E78.2 Acute sinusitis 42837704 J01.90 Acute pharyngitis 925024 003 J02.9 Acute bronchitis 7481196 2 J20.9 Bronchitis 34396932 J40 [id number] Last Dennison III, MD [facility] [address] [facility] [facility] [place], [place] [address] 05/10/2017 13:48:44 05/10/2017 14:56:47 Hypercholesterolemia 16978282 E78.00 Diabetes mellitus 532448 09 E11.9 poor control with A1C of 9.8 on therapy will in insulin Tx. and repeat A1C today ahead of his 05/03/17 appt. Essential hypertension 65987846 I10 Coronary arteriosclerosis in [place] artery 5152417116 107 I25.10 [id number] Astrid Jones [facility] [address] [facility] [place], [place] [address] 07/12/2017 08:32:03 07/22/2017 09:55:23 [id number] David Squires [facility] [address] [facility],[address] [place], [place] [address] 07/12/2017 08:55:38 07/13/2017 08:52:51 Adult health examination 404308746 Z00.00 Screening for malignant neoplasm of prostate 377458057 Z12.5 [id number] Last Dennison III, MD [facility] [address] [place] [address] 10/04/2017 08:28:27 10/04/2017 12:45:37 Adult health examination 640081640 Z00.00 Mixed hypercholesterolemia and hypertriglyceridemia 237293460 E78.2 Coronary arteriosclerosis in [place] artery 2553489973 107 I25.10 Vitamin D deficiency 347 61877 E55.9 Seasonal allergy 0162081 04 J30.2 Essential hypertension 73595742 I10 Allergic rhinitis 020675 04 J30.9 Diabetes mellitus 831455 09 E11.9 poor control with A1C of 9.8 on therapy will in insulin Tx. and repeat A1C today ahead of his 05/03/17 appt. [id number] David Tavia [facility] [address] [place] [address] 12/06/2017 08:44:54 12/07/2017 09:02:26 Diabetes mellitus 99836027 E11.9 Essential hypertension 58129173 I10 [id number] Last Dennison III, MD [facility] [address] [place] [address] 12/27/2017 08:13:48 12/27/2017 08:53:48 Mixed hypercholesterolemia and hypertriglyceridemia 875526910 E78.2 Coronary arteriosclerosis in [place] artery 2160367205 107 I25.10 Seasonal allergy 2595288 04 J30.2 Essential hypertension 64979444 I10 Diabetes mellitus 955214 09 E11.9 Allergic rhinitis 742472 04 J30.9 [id number] Last Dennison III, MD [facility] [address] [address] 03/13/2018 09:09:20 03/13/2018 10:28:28 Diabetes mellitus 51398437 E11.9 Sinusitis 53868498 J32.9 Bronchitis 56893656 J40 Type 2 ailin betes mellitus 77006893 E11.65 Allergic rhinitis 376538 04 J30.9 Essential hypertension 90086240 I10 Seasonal allergy 3258456 04 J30.2 Coronary arteriosclerosis in [place] artery 5714818336 107 I25.10 Acute pharyngitis 105650 003 J02.9 Rapid Strep is positive and WBC = 11.9. Treated with Omnicef. [id number] Astrid Jones [facility] [address] [place] [address],[address] [place] [address] 04/04/2018 08:32:45 04/04/2018 11:18:39 Active or passive immunization 794616213 Z23 [id number] Last Dennison III, MD [facility] [address] [address] 11/13/2018 10:32:49 11/13/2018 15:01:55 Mixed hypercholesterolemia and hypertriglyceridemia 583462158 E78.2 Vitamin D deficiency 347 34299 E55.9 Coronary arteriosclerosis in [place] artery 5293728652 107 I25.10 Seasonal allergy 0805435 04 J30.2 Essential hypertension 89262010 I10 Allergic rhinitis 302929 04 J30.9 Diabetes mellitus 230792 09 E11.9 Active or passive immunization 464498658 Z23 Pain of joint 53948997 M 25.50 Fatigue 33932560 R53.83 [id number] Astrid Silvajesenia [facility] [address] [address] 12/11/2018 08:52:31 12/11/2018 15:02:38 Adult health examination 407948394 Z00.00 Screening procedure 2012 5006 Z13.9 [id number] Last Dennison III, MD [facility] [address] [address] 12/11/2018 08:53:10 12/11/2018 10:44:27 Vitamin D deficiency 86162983 E55.9 Essential hypertension 96036580 I10 Allergic rhinitis 101766 04 J30.9 Diabetes mellitus 851570 09 E11.9 Mixed hypercholesterolemia and hypertriglyceridemia 486945781 E78.2 Screening for malignant neoplasm of prostate 576855350 Z12.5 Viral screening 32328132 4 Z11.59 [id number] Last Dennison III, MD [facility] [address] [address] 12/25/2018 07:59:48 12/25/2018 12:28:09 Adult health examination 388673721 Z00.00 Active or passive immunization 549881976 Z23 Alcoholism 4946362 F10.2 0 Mixed hypercholesterolemia and hypertriglyceridemia 640460669 E78.2 Coronary arteriosclerosis in [place] artery 1777099030 107 I25.10 Vitamin D deficiency 347 18276 E55.9 Seasonal allergy 8086252 04 J30.2 Essential hypertension 96256808 I10 Allergic rhinitis 727246 04 J30.9 Diabetes mellitus 190286 09 E11.9 [id number] Last Dennison III, MD [facility] [address] [address] 04/26/2019 10:40:19 04/27/2019 11:11:27 Alcoholism 4194610 F10.20 Allergic rhinitis 879070 04 J30.9 Coronary arteriosclerosis in [place] artery 8658797052 107 I25.10 Diabetes mellitus 670897 09 E11.9 Essential hypertension 49023917 I10 Mixed hypercholesterolemia and hypertriglyceridemia 011574097 E78.2 [id number] Last Dennison III, MD [facility] [address] [address] 05/17/2019 11:03:10 05/17/2019 13:48:22 Alcoholism 3652010 F10.20 Allergic rhinitis 725477 04 J30.9 Coronary arteriosclerosis in [place] artery 6893483079 107 I25.10 Diabetes mellitus 872182 09 E11.9 Essential hypertension 71968155 I10 Mixed hypercholesterolemia and hypertriglyceridemia 513930578 E78.2 Vitamin D deficiency 347 76596 E55.9 Sleep apnea 87061890 G47 .30 [id number] Josie Vogel [facility] [address] [address] 09/13/2019 14:26:17 09/13/2019 15:00:18 Exposure to SARS-CoV-2 421311938 Z20.828 Health Concerns Section Related Observation LastModified by Organization Detai ls LastModified Time None Recorded Concern Status LastModified by Organization Details LastModified Time None Recorded Advance Directives Directive None Recorded Payers Encounter Date Sequence Insurance Name Policy Number Policy Ojeda Covered Member ID Ojeda Member ID Guarantor Name 12/11/2018 1 [employer] - OPEN ACCESS - NATIONAL (POS) [id number] Harish To [id number] Harish To 12/25/2018 1 [employer] - OPEN ACCESS - NATIONAL (POS) [id number] Harish To [id number] Harish To 04/26/2019 1 [employer] - OPEN ACCESS - NATIONAL (POS) [id number] Harish To [id number] Harish To 05/17/2019 1 [employer] - OPEN ACCESS - NATIONAL (POS) [id number] Harish To [id number] Harish To 09/13/2019 1 [employer] - OPEN ACCESS - NATIONAL (POS) [id number] Harish To [id number] Harish To Notes Date Note Type Note Provider Name and Address Organization Details Recorded Time 12/11/2018 text/html Patient presents today for the [facility] labs and procedures. Astrid Jones [facility] Internal [facility] 01/16/2019 11:58:42 12/11/2018 text/html [...] 13, 2018. Last Dennison III, MD [address], [address], [facility] 12/12/2018 18:13:59 12/25/2018 text/html [...] this time. Patient is here for the [facility] Wellness Program and Subsequent Annual Wellness Exam. During this visit we will review and discuss their Health Risk Assessment and review the various tests and procedures performed as part of the [facility] Annual Wellness Exam. The patient has no [...] home and safety. Last Dennison III, MD [address] [address], [place], [address], [facility] Internal Med 12/26/2018 09:24:59 04/26/2019 text/html [...] sub q. Last Dennison III, MD [address], [address], [facility] 04/27/2019 12:24:55 05/17/2019 text/html [...] May 01. Last Dennison III, MD [facility] [facility] [place], [address], [facility] 05/17/2019 11:41:31
[2024-06-20 07:23] LABS: Estimated Glomerular Filt Rate > 60
== END 2024-06-20 06:57 | disposition home or self-care (01) ==
PROVIDERS: PCP Internal Medicine; Visit Provider Internal Medicine
DX: R91.1 Solitary pulmonary nodule (principal); N21.0 Calculus in bladder; R63.4 Abnormal weight loss
CPT/HCPCS: 71260; 74177; Q9967

== ENCOUNTER 2024-07-13 08:38 | Outpatient (CLI) | payer MEDICARE, SELFPAY ==
--- NOTE | ~2024-07-13 | MR_ITS ---
MRI of the abdomen: Clinical indication: Abnormal findings on diagnostic imaging. Technique: Coronal SSFSE ARC, WATER:coronal LAVA-FLEX, Coronal 2D FIESTA FatSat, Axial SSFSE BH ARC, Axial 3D DualEcho BH, Axial SSFSE-IR, Axial DWI b=500, Axial 2D FIESTA FatSat, pre and dynamic postco ntrast Axial LAVA ARC, postcontrast Coronal In and Opposed phase LAVA FLEX . Following intravenous ad ministration of 16 cc MultiHance gadolinium, T1-weighted fat-sat imaging was performed in the axial a nd coronal planes. COMPARISON: CT scan dated 06/20/2024 Findings: Probable tiny gallstones are present. The common bile duct is normal in course and caliber. No filling defects are seen within the CBD. No evidence of intrahepatic biliary ductal dilatation. T he pancreatic duct is normal in size. Liver, spleen, pancreas, right adrenal gland,, kidneys appear normal. 1.3 cm left adrenal nodule demo nstrates signal loss on these images relative to in phase images, compatible with benign adenoma. The aorta and the paraaortic regions appear normal. Impression: 1.3 cm left adrenal adenoma. Cholelithiasis. Reviewed, dictated and finalized at location . Impression: 1.3 cm left adrenal adenoma. Cholelithiasis.
--- OUTSIDE RECORDS SUMMARY | 2024-07-13 08:44 | XMS_ITS | Clinical Summary ---
Author Organization [facility] Address [address] [place] [address] Care Team Providers Care Operations Recruiter Name Role Phone Jorge Wild MD Primary Care Provider [phone] Allergies No known active allergies Medications Victoza 3-Juan 0.6 mg/0.1 mL (18 mg/3 mL) injection INJECT 1.8 MG UNDER THE SKIN ONCE DAILY 1 Active simvastatin (ZOCOR) 40 mg tablet Take 1 tablet (40 mg total) by mouth nightly 0 Active lisinopriL (PRINIVIL,ZESTR IL) 40 mg tablet Take 1 tablet (40 mg total) by mouth daily 1 Active metFORMIN (GLUCOPHAGE) 1,000 mg tablet Take 1 tablet (1,000 mg total) by mouth 2 (two) times a day 1 Active ezetimibe (ZETIA) 10 mg tablet Take 1 tablet (10 mg total) by mouth daily 0 Active traZODone (DESYREL) 50 mg tablet 1 Active qm-lhe-ttgsz-ly [id number]-[id number] 200-175-250 mcg tablet Take by mouth Active [...] needed with new device.) 0.6 mL 1 5 Active blood-glucose sensor (FreeStyle Chris 3 Plus Sensor) device Use to check blood sugar continuously . 5 each 3 5 Active FreeStyle Chris 14 Day Sensor kit USE TO MONITOR BLOOD SUGAR DAILY 06/20/19 25 Discontinu ed(Therapy completed) FreeStyle Chris 14 Day [place] misc USE TO MONITOR BLOOD SUGAR DAILY 06/20/19 25 Discontinu ed(Therapy completed) Active Problems Problem Noted Date Diagnosed Date Coronary artery disease invo lving [place] coronary artery of [place] heart without angina pectoris 05/22/2020 History of coronary artery stent placement 05/22 Encounters Date Type Department Care Team Description 06/28/2024 Telephone [facility] Neurology [address] [place] [phone] Car Cha MD PET/CT Amyloid Brain denial 06/19/2024 9:40 AM CDT Office Visit [facility] Endocrinology Metabolism and Lipid [address] [place] [address] [address] [place] [address] Kadeem Connlely MD Type 2 diabetes mellitus with hypoglycemia without coma, with long-term current use of insulin (HCC) (Primary Dx); Hyperlipidemia, unspecified hyperlipidemia type; Coronary artery disease without angina pectoris, unspecified vessel or lesion type, unspecified whether [place] or transplanted heart; Encounter for long-term (current) use of medications; Memory loss 05/24/2024 11:00 AM CDT Office Visit [facility] Neurology [address] [place] [address] [place] [phone] Car Cha MD Cognitive and behavioral changes (Primary Dx); Dementia without behavioral disturbance, psychotic disturbance, mood disturbance, or anxiety, unspecified dementia severity, unspecified dementia type (HCC) 05/07/2024 9:00 AM CDT Clinical Support [facility] Neuro Psychology [address] [address] Kristina Rincon, PhD Cognitive and behavioral changes from Last 3 Months Surgical History Surgery [...] on file Legal Sex Male 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 Gender Identity Not on file Sexual Orientation Not on file Obstetrics History Last Filed Vital Signs Vital Sign Reading Time Taken Comments Blood Pressure 114/74 06/19/2024 9:36 AM CDT Pulse 70 06/19/2024 9:36 AM CDT Temperature 36.2 C (97.1 F) 03/20/2024 9:52 AM 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 Respiratory Rate 18 01/27/2024 10:13 AM 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 Oxygen Saturation 97% 06/19/2024 9:36 AM CDT Inhaled Oxygen Concentration - - Weight 79.5 kg (175 lb 3.2 oz) 06/19/2024 9:36 A M CDT Height 182.9 cm (6' 0.01 ) 06/19/2024 9:36 AM CD T Body Mass Index 23.76 06/19/2024 9:36 AM CDT Plan of Treatment Health Maintenance [...] 05/22/2021 05/22/2020, 11/15/2007 Well Visit 65+ 04/26/2023 Influenza Vaccine (Season Ended) 2024 03/12/2020, 11/13/2018, 12/21/2016 Hemoglobin A1C 12/19/2024 06/19/2024, 03/20/2024 DTaP/Tdap/Td Vaccine (3 - Td or Tdap) 12/25/202805/2018, 06/21/2008 Zoster Vaccine Completed 04/04/2018, 12/11/2017 Procedures Procedure Name Priority Date/Time Associated Diagnosis Comments POCT HEMOGLOBIN A1C Routine 06/19/2024 9 :42 AM CDT Type 2 diabetes mellitus with hypoglycemia without coma, with long-term current use of insulin (HCC) POCT LIPID PANEL Routine 05/22/2020 12:0 9 PM CDT Coronary artery disease involving [place] coronary artery of [place] heart without angina pectoris from Last 3 Months or Most Recently Relevant to Health Maintenance Results * POCT hemoglobin A1c (06/19/2024 9:42 AM CDT) Hemoglobin A1C, POC 7.3 4.0 - 5.6 % Blood 06/19/2024 9:42 AM CDT us Kadeem Connelly MD POINT OF CARE [...] Most Recently Relevant to Health Maintenance Insurance [employer] MEDICARE PPO [employer] MEDICARE PPO [employer] MEDICARE PPO Care Teams Operations Recruiter Relationship Specialty Start Date End Date Jorge Wild MD [address] [place] [address] PCP - General Internal Medicine 06/11/22
--- OUTSIDE RECORDS SUMMARY | 2024-07-13 08:44 | XMS_ITS | Referral Summary ---
Author Organization [facility] Address [address] [place] [address] Care Team Providers Care Fish Pitcher Name Role Phone Jorge Wild MD Primary Care Provider [phone] Encounters Date Type Department Care Team Description 06/28/2024 Telephone [facility] Neurology [address] [place] [address] [place] [phone] Car Cha MD PET/CT Amyloid Brain denial 06/19/2024 9:40 AM CDT Office Visit [facility] Endocrinology Metabolism and Lipid [address] [place] [address] [place] [phone] Kadeem Connelly MD Type 2 diabetes mellitus with hypoglycemia without coma, with long-term current use of insulin (HCC) (Primary Dx); Hyperlipidemia, unspecified hyperlipidemia type; Coronary artery disease without angina pectoris, unspecified vessel or lesion type, unspecified whether [place] or transplanted heart; Encounter for long-term (current) use of medications; Memory loss 05/24/2024 11:00 AM CDT Office Visit [facility] Neurology [address] [place] [address] [place] [phone] Car Cha MD Cognitive and behavioral changes (Primary Dx); Dementia without behavioral disturbance, psychotic disturbance, mood disturbance, or anxiety, unspecified dementia severity, unspecified dementia type (HCC) 05/07/2024 9:00 AM CDT Clinical Support [facility] Neuro Psychology [address] [address] Kristina Rincon, PhD Cognitive and behavioral changes from Last 3 Months Allergies No known [...] traZODone (DESYREL) 50 mg tablet 1 Active yp-ioy-wrwtp-ly [id number] 200-175-250 mcg tablet Take by mouth Active [...] Discontinu ed(Therapy completed) FreeStyle Chris 14 Day [place] misc USE TO MONITOR BLOOD SUGAR DAILY 06/20/19 25 Discontinu ed(Therapy completed) Active Problems Problem Noted Date Diagnosed Date Coronary artery disease invo lving [place] coronary artery of [place] heart without angina pectoris 05/22/2020 History of [...] on file Legal Sex Male 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 Gender Identity Not on file Sexual Orientation Not on file Last Filed Vital Signs Vital Sign Reading Time Taken Comments Blood Pressure 114/74 06/19/2024 9:36 AM CDT Pulse 70 06/19/2024 9:36 AM CDT Temperature 36.2 C (97.1 F) 03/20/2024 9:52 AM ROUSTABOUT SUPERVISOR Respiratory Rate 18 01/27/2024 10:13 AM ROUSTABOUT SUPERVISOR Oxygen Saturation 97% 06/19/2024 9:36 AM CDT Inhaled Oxygen Concentration - - Weight 79.5 kg (175 lb 3.2 oz) 06/19/2024 9:36 A M CDT Height 182.9 cm (6' 0.01 ) 06/19/2024 9:36 AM CD T Body Mass Index 23.76 06/19/2024 9:36 AM CDT Plan of Treatment Not on file Procedures Procedure Name Priority Date/Time Associated Diagnosis Comments POCT HEMOGLOBIN A1C Routine 06/19/2024 9 :42 AM CDT Type 2 diabetes mellitus with hypoglycemia without coma, with long-term current use of insulin (HCC) POCT LIPID PANEL Routine 05/22/2020 12:0 9 PM CDT Coronary artery disease involving [place] coronary artery of [place] heart without angina pectoris from Last 3 Months or Most Recently Relevant to Health Maintenance Results * POCT hemoglobin A1c (06/19/2024 9:42 AM CDT) Hemoglobin A1C, POC 7.3 4.0 - 5.6 % Blood 06/19/2024 9:42 AM CDT Kadeem Connelly MD POINT OF CARE TEST [...] Most Recently Relevant to Health Maintenance Insurance [employer] MEDICARE PPO [employer] MEDICARE PPO [employer] MEDICARE PPO Care Teams Fish Pitcher Relationship Specialty Start Date End Date Jorge Wild MD [address] [facility] [address] [place] [address] PCP - General Internal Medicine 06/11/22
--- OUTSIDE RECORDS SUMMARY | 2024-07-13 08:44 | XMS_ITS | Continuity of Care Document ---
Author Organization [facility] Address [address] [place] [address] Phone Care Team Providers Care Oncology Pharmacist Name Role Phone Conversion MD, Doctor Unavailable Unavailabl e Medications Medication Instructions Dosage Effective Dates (start - stop) Status Comments ZIAC 5-6.25MG TABLET 1 QD - Active ZIAC 5-6.25MG TABLET 1 QD - No Longer Active ZIAC 5-6.25MG TABLET 1 QD - No Longer Active ZIAC 5/6.25MG TABLET 1 QD - No Longer Active ATIVAN 1MG TABS 1 DIRECTE - No Longer Active ZIAC 5/6.25MG TABLET 1 QD - No Longer Active ZIAC 5/6.25MG TABLET 1 QD - No Longer Active LORAZEPAM 1MG TAB(S) 1 DIRECTE - No Longer Active ZIAC 5/6.25MG TABLET 1 QD - No Longer Active ZIAC 6.25-5MG TAB(S) 1 QD - No Longer Active ZIAC 5/6.25MG TABLET 1 QAM - No Longer Active XANAX 0.25MG TABLET 1 DIRECTE - No Longer Active 1 po daily as needed for insomnia CELEXA 20MG TABLET 1 QD - No Longer Active XANAX 0.25MG TABLET 1 DIRECTE - No Longer Active 1 po TID prn anxiety XANAX 0.25MG TABS 1 DIRECTE No Longer Active 1 po TID prn anxiety CELEXA 20MG TABS 1 QD - No Longer Active CELEXA 20MG TABS 1 QD - No Longer Active XANAX 0.25MG TABS 1 DIRECTE No Longer Active 1 po TID prn anxiety ZIAC 6.25-5MG TABS 1 QAM - No Longer Active ZIAC 6.25-5MG TABS 1 QA - No Longer Active Advance Directives Directive Yes / No Effective Date File Name No Information Encounters Encounter Description Practice Location Reason(s) For Visit Diagnoses Date Provider Providers Copied on Encounter [facility], [address], [place], [place], [address] [place] [address] , tel: [phone] Conversion Department No Information 6 1 Conversion Doctor. [facility], [place], [place], [facility], . [facility], [address], [place], [place], [address] , tel: [phone] [facility] BENIGN HYPERTENSION [address], [address], [place], [place], [id number], . tel: [phone] [facility], [address], [place], [place], [address] , tel: [phone] [facility] HYPERLIPIDEMIA NEC/NOS [address], [address], [place], [place], [address], . tel: [phone] [facility], [address], [place], [place], [id number] , tel: [phone] [facility] ANXIETY STATE NOS 3-[address], [address], [place], [place], [address], [place]. tel:[phone] [facility], [address], [place], [place], [address] , [place] tel:[phone] [facility] MYALGIA AND MYOSITIS NOSMALAISE AND FATIGUE NEC Sep-0 5-200 2 [address]. [address], [address], [place], [place], [address], [place]. tel:[phone] [facility], [address], [place], [place], [address] , [place] tel:[phone] [facility] DEPRESSIVE DISORDER NECINSOMNIA NOS Nov-0 8-200 1 [address], [address], [place], [place], [address], [place]. tel:[phone] [facility], [address], [place], [place], [address] , [place] tel:[phone] [facility] EXERCISE COUNSELINGFAMILY HX-GI MALIGNANCY Nov- 9-200 1 [address], [address], [place], [place], [address], [place]. tel:[phone] [facility], [address], [place], [place], [address] , [place] tel:[phone] [facility] MORBID OBESITY 1-200 1 [address], [address], [place], [place], [address], [place]. 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, [address], [place], [place], [address], [place]. tel:[phone] [facility], [address], [place], [place], [address] , [place] tel:[phone] [facility] LONG-TERM USE MEDS NEC 8-200 0 [address]. [address], [address], [place], [place], [address], . tel:[phone] [facility], [address], [place], [place], [address] , tel: [phone] [facility] HYPERTENSION NOSLUMBAGOPAIN IN THORACIC SPINE 200 0 Conversion Doctor. [address] [place] [address], [address], . [facility], [address], [place], [place], [address] , tel: [phone] [facility] ACUTE BRONCHITIS 0 Conversion Doctor. [facility] [place], [address], . Family History Family Member Type Diagnosis Age At Onset No Information Payers Payer name Insurance type Covered republican ID Authoriza tion(s) No Information Social History Type Description Quantity Date Captured Comments Sex Male Smoking Status No Information Chief Complaint And Reason For Visit No Information Reason For Referral Reason For Referral No Information History Of Present Illness Encounter Date Complaint History Of Prese nt Illness No Information Functional Status Date Functional Assessmen t No Information Medications Administered Medication Instructions Dosage Effective Dates (start - stop) Status Comments ZIAC 5-6.25MG TABLET 1 QD - No Longer Active ZIAC 6.25-5MG TAB(S) 1 QD - No Longer Active XANAX 0.25MG TABLET 1 DIRECTE - No Longer Active 1 po TID prn anxiety Instructions Date Instruction Additional Infor mation No Information Assessments Type Assessment Date No Information Patient Care Teams Name Effective Dates (start - stop) Status Members No Information
--- OUTSIDE RECORDS SUMMARY | 2024-07-13 08:44 | XMS_ITS | Data Portability ---
Author Organization [facility] OFFICE Address [address] [address] Assessment Encounter Date Assessment Date Assessment LastModified [...] the patient closely. Last Dennison III, MD. 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, [place], [address], 0 08:47:52 HbA1c (hemoglob in A1c), blood 2019 020 [facility], [address], [place], [address], 0 13:40:37 glucose, fasting, fingersti ck, blood (point of care) 2019 020 [facility], [address], [place], [address], 0 13:40:37 lipid panel, serum 2019 020 [facility], [address], [facility], [place], [address], 0 07:40:19 CMP, serum or plasma 2019 020 [facility], [address], [facility], [place], [address], 0 07:40:19 CBC w/ auto diff 2019 020 [facility], [address], [place], [address], 0 13:40:37 fecal occult blood, immunoass ay, stool 2018 019 [facility], [address] [facility] [address], [address], 9 10:33:43 unlisted lab - mdvip alternati ve awp 2018 019 shireen [facility], [address], [place], [address], 9 15:56:54 Referral None recorded. Procedures body compositi on analysis (PROC) 2018 019 [facility], [address], [address], 9 10:26:48 Surgeries None recorded. Imaging audiogram [id number], [address], [address], 9 15:02:38 spirometr y [id number], [address], [address], 9 15:02:38 electroca rdiogram [address], [address], [address], 9 15:02:38 Medication Orders None recorded. Patient TargetsNo targets recorded. Patient Instructions Encounter Date Encounter Id Patient Instructions Last Modified By Organization Details Last Modified Time 12/11/2018 [id number] (SAMMIE) ankle brachial index* jboslerlll Not available [...] soon! anderson Not available 12/11/2018 09:26:27 12/25/2018 [id number] In compliance with Medicare guidelines, we will be billing Medicare to inform them of your adherence to completing your necessary preventive care. anderson Not available 12/25/2018 08:15:54 Reason for Referral None Reported. Results Created Date Observation Date Name Description Value Unit Range Abnormal Flag Note LastModifiedBy Organization Detail LastModifiedTime 11/14/1911/14/2018 lipid panel , serum cholesterol, total 148 mg/dL <200 normal Not Available [facility] [address] [facility], [place], [address], 11/14/2018 09:19:16 11/14/1911/14/2018 lipid panel , serum HDL cholesterol 46 mg/dL >40 normal Not Available [facility] [address] [facility], [place], [address], 11/14/2018 09:19:16 11/14/1911/14/2018 lipid panel , serum triglyceride s 247 mg/dL <150 high If a non-f astin g speci men was colle cted, consi josé miguel repea t trigl yceri de testi ng on a fasti ng speci men if clini mateusz indic ated. Savage nolasco et al. J. of Clin. Lipid ol. 2015; 9:129 -169. Not Available [facility] [address] [facility], [place], [address], 11/14/2018 09:19:16 11/14/1911/14/2018 lipid panel , serum [...] 2061- 2068 (http ://ed ucati on.Qu estDi BuscoTurnos. com/f aq/FA Q164) Not Available [facility] [address] [facility] [place], [address], 11/14/2018 09:19:16 11/14/1911/14/2018 lipid panel , serum chol/HDLC ratio 3.2 (calc ) <5.0 normal Not Available [facility] [address] [place], [address], 11/14/2018 09:19:16 11/14/1911/14/2018 lipid panel , serum non HDL cholesterol 102 mg/dL _(jorge alberto c) <130 normal For patie nts with diabe mayda plus 1 major ASCVD risk facto r, treat ing to a non-H DL-C goal of <100 mg/dL (LDL- C of <70 mg/dL ) is consi malissa rodriguez optio n. Not Available [facility] [address] [facility] [place], [address], 11/14/2018 09:19:16 11/14/1911/14/2018 thyro id panel , serum T3 uptake 28 % 22-35 normal Not Available [facility] [address] [facility] [place], [address], 11/14/2018 09:19:17 11/14/1911/14/2018 thyro id panel , serum T4 (thyroxine), total 8.7 mcg/d L 4.9-10 .5 normal Not Available [facility] [address] [facility] [place], [address], 11/14/2018 09:19:17 11/14/1911/14/2018 thyro id panel , serum free T4 index (T7) 2.4 1.4-3. 8 normal Not Available [facility] [address] [facility] [place], [address], 11/14/2018 09:19:17 11/14/1911/14/2018 thyro id panel , serum TSH 0.95 mIU/L 0.40-4 .50 normal Not Available [facility] [address] [facility] [place], [address], 11/14/2018 09:19:17 11/14/1911/14/2018 CMP, serum or plasm a glucose 178 mg/dL 65-99 high Fasti ng refer ence inter itz For someo ne witho ut known diabe mayda, a gluco se value >125 mg/dL indic ates that they may have diabe mayda and this shoul d be confi rmed with a follo w-up test. Not Available [facility] [address] [place], [address], 11/14/2018 09:19:17 11/14/1911/14/2018 CMP, serum or plasm a urea nitrogen (BUN) 12 mg/dL 7-25 normal Not Available [facility] [address] [place], [address], 11/14/2018 09:19:17 11/14/1911/14/2018 CMP, serum or plasm a creatinine 0.84 mg/dL 0.70-1 .25 normal For patie nts >49 years of age, the refer ence limit for Creat inine is appro ximat gaudencio 13% highe r for peopl e ident ified as Afric an-Am agnes n. Not Available [facility] [address] [facility] [place], [address], 11/14/2018 09:19:17 11/14/1911/14/2018 CMP, serum or plasm a eGFR non-afr. kyrgyz 95 mL/mi n/1.7 3m2 > or = 60 normal Not Available [facility] [address] [place], [address], 11/14/2018 09:19:17 11/14/1911/14/2018 CMP, serum or plasm a eGFR 110 mL/mi n/1.7 3m2 > or = 60 normal Not Available [facility] [address] [place], [address], 11/14/2018 09:19:17 11/14/1911/14/2018 CMP, serum or plasm a BUN/creatini ne ratio NOT APPLIC ABLE (calc ) 6-22 Not Available [facility] [address] [facility] [place], [address], 11/14/2018 09:19:17 11/14/1911/14/2018 CMP, serum or plasm a sodium 136 mmol/ L 135-14 6 normal Not Available [facility] [address] [facility] [place], [address], 11/14/2018 09:19:17 11/14/1911/14/2018 CMP, serum or plasm a potassium 4.3 mmol/ L 3.5-5. 3 normal Not Available [facility] [address] [facility] [place], [address], 11/14/2018 09:19:17 11/14/1911/14/2018 CMP, serum or plasm a chloride 97 mmol/ L 98-110 low Not Available [facility] [address] [facility] [place], [address], 11/14/2018 09:19:17 11/14/1911/14/2018 CMP, serum or plasm a carbon dioxide 28 mmol/ L 20-32 normal Not Available [facility] [address] [facility] [place], [address], 11/14/2018 09:19:17 11/14/1911/14/2018 CMP, serum or plasm a calcium 9.9 mg/dL 8.6-10 .3 normal Not Available [facility] [address] [facility] [place], [address], 11/14/2018 09:19:17 11/14/1911/14/2018 CMP, serum or plasm a protein, total 7.3 g/dL 6.1-8. 1 normal Not Available [facility] [facility] [place], [address], 11/14/2018 09:19:17 11/14/19 19 11/14/2018 CMP, serum or plasm a albumin 4.3 g/dL 3.6-5. 1 normal Not Available [facility] [address] [place] [address], [address], 11/14/2018 09:19:17 11/14/1911/14/2018 CMP, serum or plasm a globulin 3.0 g/dL_ (calc ) 1.9-3. 7 normal Not Available [address], [address], 11/14/2018 09:19:17 11/14/1911/14/2018 CMP, serum or plasm a albumin/glob ulin ratio 1.4 (calc ) 1.0-2. 5 normal Not Available [facility] [address] [place] [address], [address], 11/14/2018 09:19:17 11/14/1911/14/2018 CMP, serum or plasm a bilirubin, total 0.4 mg/dL 0.2-1. 2 normal Not Available [facility] [address] [place] [address], [address], 11/14/2018 09:19:17 11/14/1911/14/2018 CMP, serum or plasm a alkaline phosphatase 77 U/L 40-115 normal Not Available [facility] [address] [place] [address], [address], 11/14/2018 09:19:17 11/14/1911/14/2018 CMP, serum or plasm a AST 21 U/L 10-35 normal Not Available [facility] [address] [place], [address], 11/14/2018 09:19:17 11/14/19 19 11/14/2018 CMP, serum or plasm a ALT 34 U/L 9-46 normal Not Available [facility] [address] [place], [address], 11/14/2018 09:19:17 11/14/19 19 11/14/2018 vitam in [...] /MS is recom jozef d: order code 32107 (rita ents >2yrs ). For more infor aubrey maria on this test, go to: http: //franklin coombs gnost ics.c om/fa q/FAQ 163 (This link is being provi ded for infor aubrey nal/e ducat ional purpo ses only. ) Not Available [facility] [address] [place], [address], 11/14/2018 09:19:18 11/14/1911/13/2018 ESR (eryt hrocy te sedim entat ion rate) , blood Sed Rate 5 Not Available [facility] [address], [place], [address], 11/13/2018 11:53:24 11/14/1911/13/2018 HbA1c (hemo globi n A1c), blood HbA1C 8.3 Not Available [facility] [address] [place] [address], [address], 11/13/2018 12:01:28 11/14/1911/13/2018 CBC w/ auto diff WBC 9.1 K/uL 4.6-10 .2 Not Available [facility] [address] [place] [address], [address], 11/13/2018 11:54:55 11/14/1911/13/2018 CBC w/ auto diff lym 2.4 K/uL 0.6-3. 4 Not Available [facility] [address] [place] [address], [address], 11/13/2018 11:54:55 11/14/1911/13/2018 CBC w/ auto diff lym % 25.9 %L 10.0-5 0.0 Not Available [facility] [address] [place] [address], [address], 11/13/2018 11:54:55 11/14/1911/13/2018 CBC w/ auto diff *mid 0.7 K/uL 0.0-0. 9 Not Available [facility] [address] [place] [address], [address], 11/13/2018 11:54:55 11/14/1911/13/2018 CBC w/ auto diff *mid % 7.7 %M 0.0-12 .0 Not Available [facility] [address] [place] [address], [address], 11/13/2018 11:54:55 11/14/1911/13/2018 CBC w/ auto diff gran 6.0 K/uL 2.0-6. 9 Not Available [facility] [address] [place] [address], [address], 11/13/2018 11:54:55 11/14/1911/13/2018 CBC w/ auto diff gran% 66.4 %g 37.0-8 0.0 Not Available [facility] [address] [place] [address], [address], 11/13/2018 11:54:55 11/14/1911/13/2018 CBC w/ auto diff RBC 5.46 M/uL 4.04-5 .48 Not Available [facility] [address] [place] [address], [address], 11/13/2018 11:54:55 11/14/1911/13/2018 CBC w/ auto diff HGB 14.9 g/dL 12.2-1 5. Not Available [facility] [address] [place] [address], [address], 11/13/2018 11:54:55 11/14/1911/13/2018 CBC w/ auto diff HCT 47.0 % 37.7-4 7.9 Not Available [facility] [address] [place] [address], [address], 11/13/2018 11:54:55 11/14/1911/13/2018 CBC w/ auto diff MCV 86.1 fL 80.0-9 7.0 Not Available [facility] [address] [place] [address], [address], 11/13/2018 11:54:55 11/14/1911/13/2018 CBC w/ auto diff MCH 27.3 pg 27.0-3 1.2 Not Available [facility] [address] [place] [address], [address], 11/13/2018 11:54:55 11/14/1911/13/2018 CBC w/ auto diff MCHC 31.7 g/dL 31.8-3 5.4 low Not Available [facility] [address] [place] [address], [address], 11/13/2018 11:54:55 11/14/1911/13/2018 CBC w/ auto diff RDW 14.2 % 11.6-1 4.8 Not Available [facility] [address] [place] [address] [place], [address], 11/13/2018 11:54:55 11/14/19 19 11/13/2018 CBC w/ auto diff plt 293 K/uL 142.-4 24. Not Available [facility] [address] [place] [address], [address], 11/13/2018 11:54:55 11/14/19 19 11/13/2018 CBC w/ auto diff MPV 7.2 fL 0.0-99 .8 Not Available [facility] [address] [place] [address], [place], [address], 11/13/2018 11:54:55 11/14/1911/13/2018 gluco se, fasti ng, finge rstic k, blood (poin t of care) FBS 161 Not Available [facility] [address] [place] [address], [address], 11/13/2018 11:54:41 12/12/1912/12/2018 PSA, serum or plasm [...] This test was perfo rmed using the MyForce chemi lumin escen t metho d. Value s obtai amy from diffe rent assay metho ds canno t be used inter eubanks eably . PSA level s, regar dless of value , shoul d not be inter prete d as absol [place] evide nce of the prese nce or absen ce of disea se. Not Available [facility] [address] [facility], [place], [address], 12/12/2018 15:04:26 12/12/19 19 12/12/2018 RPR (rapi d plasm a reagi n), serum RPR (monitor) w/refl titer NON-RE ACTIVE non-re active normal Not Available [facility] [address] [facility], [place], [address], 12/12/2018 15:04:26 12/12/19 19 12/12/2018 HIV 1+2 [...] matio n pleas e refer to http: //[facility] catazalea n.que stdia gnost ics.c om/fa q/FAQ 106 (This link is being provi ded for infor matio nal/ educa gio l purpo ses only. ) The perfo rmanc e of this assay has not been clini mateusz valid ated in patie nts less than 2 years old. Not Available [facility] [address] [facility], [place], [address], 12/12/2018 19:01:45 12/12/19 19 12/12/2018 hsv (1+2) igg, serum hsv 1 IgG, type specific Ab <0.90 index normal Not Available [facility] [address] [place], [address], 12/12/2018 19:01:45 12/12/1912/12/2018 hsv (1+2) igg, serum [...] scree roc. Not Available [facility] [address] [place], [address], 12/12/2018 19:01:45 12/12/1912/12/2018 CT + NG RNA, PCR, unspe cifie d speci men chlamydia trachomatis RNA, tma, urogenital NOT DETECT ED not detect ed normal Not Available [facility] [address] [facility] [place], [address], 12/12/2018 19:01:46 12/12/1912/12/2018 CT + NG RNA, PCR, unspe cifie d speci men neisseria gonorrhoeae RNA, tma, urogenital NOT DETECT ED not detect ed normal Not Available [facility] [address] [place], [address], 12/12/2018 19:01:46 12/12/1912/12/2018 CT + NG RNA, [...] ostdarryl s. Not Available [facility] [address] [facility], [place], [address], 12/12/2018 19:01:46 12/12/1912/11/2018 lipid panel , serum cholesterol, total 141 mg/dL <200 Not Available [facility] - Manual Order Only [address], [place], [address], 12/16/2018 00:14:06 12/12/19 19 12/11/2018 lipid panel , serum HDL cholesterol 44 mg/dL >39 Not Available [facility] - Manual Order Only [address], [place], [address], 12/16/2018 00:14:06 12/12/19 19 12/11/2018 lipid panel , serum triglyceride s 166 mg/dL <150 high Not Available [facility] - Manual Order Only [address], [place], [address], 12/16/2018 00:14:06 12/12/19 19 12/11/2018 lipid panel [...] 9): 2061- 2068 (http ://ed mauryati on.Rachel vegaQuotient Biodiagnostics. com/f aq/FA Q164) Not Available [facility] [address], [place], [address], 12/16/2018 00:14:06 12/12/19 19 12/11/2018 lipid panel , serum chol/HDL-C 3.2 calc <3.[address] [facility] [address], [place], [address], 12/16/2018 00:14:06 12/12/19 19 12/11/2018 lipid panel , serum non-HDL cholesterol 97 mg/dL _(jorge alberto c) <130 For patie nts with diabe mayda plus 1 major ASCVD risk facto r, treat ing to a non-H DL-C goal of <100 mg/dL (LDL- C of <70 mg/dL ) is consi dered a christos aldrich n. Not Available [facility] - Manual Order Only [address], [place], [address], 12/16/2018 00:14:06 12/12/19 19 12/11/2018 lipid panel , serum TG/HDL-C 3.8 calc <2.0 high Not Available [facility] - Manual Order Only [address], [place], [address], 12/16/2018 00:14:06 12/12/1912/11/2018 CBC w/ diff WBC 7.0 K/uL 3.7-11 .0 Not Available [facility] - Manual Order Only [address], [place], [address], 12/16/2018 00:14:06 12/12/19 19 12/11/2018 CBC w/ diff RBC 5.65 M/uL 4.06-5 .70 Not Available [facility] - Manual Order Only [address], [place], [address], 12/16/2018 00:14:06 12/12/19 19 12/11/2018 CBC w/ diff hemoglobin 15.1 g/dL 12.4-1 6.9 The refer ence inter itz for red blood count , hemog lobin and hemat ocrit are based on the centr al 95th perce ntile distr ibuti on of resul ts seen for [facility][note 3] Heart Lab patie nts. This range does [...] Res Opin 2009; 25:11 43). Not Available [facility] - Manual Order Only [address], [place], [address], 12/16/2018 00:14:06 12/12/19 19 12/11/2018 CBC w/ diff hematocrit 47.2 % 36.7-4 8.6 Not Available [facility] - Manual Order Only [address], [place], [address], 12/16/2018 00:14:06 12/12/1912/11/2018 CBC w/ diff MCV 83.5 fL 79.0-9 9.0 Not Available [facility] - Manual Order Only [address], [place], [address], 12/16/2018 00:14:06 12/12/19 19 12/11/2018 CBC w/ diff MCH 26.7 pg 28.0-3 3.0 low Not Available [facility] - Manual Order Only [address], [place], [address], 12/16/2018 00:14:06 12/12/19 19 12/11/2018 CBC w/ diff MCHC 32.0 g/dL 32.0-3 6.0 Not Available [facility] - Manual Order Only [address], [place], [address], 12/16/2018 00:14:06 12/12/19 19 12/11/2018 CBC w/ diff red cell distribution width 13.3 % 11.7-1 5.2 Not Available [facility] - Manual Order Only [address], [place], [address], 12/16/2018 00:14:06 12/12/19 19 12/11/2018 CBC w/ diff platelet count 231 K/uL 150-40 0 Not Available [facility] - Manual Order Only [address], [place], [address], 12/16/2018 00:14:06 12/12/19 19 12/11/2018 CBC w/ diff mean platelet volume 9.5 fL 7.2-13 .0 Not Available [facility] - Manual Order Only [address], [place], [address], 12/16/2018 00:14:06 12/12/19 19 12/11/2018 CBC w/ diff neutrophil % 57.7 % 40.0-7 4.0 Not Available [facility] - Manual Order Only [address], [place], [address], 12/16/2018 00:14:06 12/12/19 19 12/11/2018 CBC w/ diff neutrophil absolute 4.05 K/uL 1.50-7 .50 Not Available [facility] - Manual Order Only [address], [place], [address], 12/16/2018 00:14:06 12/12/19 19 12/11/2018 CBC w/ diff lymphocyte % 29.1 % 19.0-4 8.0 Not Available [facility] - Manual Order Only [address], [place], [address], 12/16/2018 00:14:06 12/12/19 19 12/11/2018 CBC w/ diff lymphocyte absolute 2.04 K/uL 1.00-4 .50 Not Available [facility] - Manual Order Only [address], [place], [address], 12/16/2018 00:14:06 12/12/19 19 12/11/2018 CBC w/ diff monocyte % 8.5 % 4.0-12 .0 Not Available [facility] Only [address], [place], [address], 12/16/2018 00:14:06 12/12/19 19 12/11/2018 CBC w/ diff monocyte absolute 0.60 K/uL 0.10-0 .80 Not Available [facility] - Manual Order Only [address], [place], [address], 12/16/2018 00:14:06 12/12/19 19 12/11/2018 CBC w/ diff eosinophil % 3.8 % 0.0-6. 0 Not Available [facility] Order Only [address], [place], [address], 12/16/2018 00:14:06 12/12/19 19 12/11/2018 CBC w/ diff eosinophil absolute 0.27 K/uL 0.00-0 .50 Not Available [facility] Order Only [address], [place], [address], 12/16/2018 00:14:06 12/12/19 19 12/11/2018 CBC w/ diff basophil % 0.9 % 0.0-2. 0 Not Available [facility] Order Only [address], [place], [address], 12/16/2018 00:14:06 12/12/19 19 12/11/2018 CBC w/ diff basophil absolute 0.06 K/uL 0.00-0 .20 Not Available [facility] - Manual Order Only [address], [place], [address], 12/16/2018 00:14:06 12/12/19 19 12/11/2018 CMP, serum [...] on a subse quent day. Not Available [facility] - Manual Order Only [address], [place], [address], 12/16/2018 00:14:06 12/12/19 19 12/11/2018 CMP, serum or plasm a calcium 9.5 mg/dL 8.5-10 .5 Not Available [facility] - Manual Order Only [address], [place], [address], 12/16/2018 00:14:06 12/12/19 19 12/11/2018 CMP, serum or plasm a sodium 138 mmol/ L 136-14 5 Not Available [facility] - Manual Order Only [address], [place], [address], 12/16/2018 00:14:06 12/12/1912/11/2018 CMP, serum or plasm a potassium 4.7 mmol/ L 3.5-5. 1 Not Available [facility] Order Only [address], [place], [address], 12/16/2018 00:14:06 12/12/1912/11/2018 CMP, serum or plasm a chloride 95 mmol/ L 95-108 Not Available [facility] - Manual Order Only [address], [place], [address], 12/16/2018 00:14:06 12/12/19 19 12/11/2018 CMP, serum or plasm a CO2 (carbon dioxide) 28 mmol/ L 21-33 Not Available [facility] - Manual Order Only [address], [place], [address], 12/16/2018 00:14:06 12/12/19 19 12/11/2018 CMP, serum or plasm a BUN (blood urea nitrogen) 11 mg/dL 8-23 Not Available [facility] Order Only [address], [place], [address], 12/16/2018 00:14:06 12/12/19 19 12/11/2018 CMP, serum or plasm a creatinine 0.75 mg/dL 0.72-1 .30 Not Available [facility] - Manual Order Only [address], [place], [address], 12/16/2018 00:14:06 12/12/19 19 12/11/2018 CMP, serum or plasm a albumin 4.4 g/dL 3.5-5. 5 Not Available [facility] - Manual Order Only [address], [place], [address], 12/16/2018 00:14:06 12/12/19 19 12/11/2018 CMP, serum or plasm a total protein 7.2 g/dL 6.1-8. 0 Not Available [facility] - Manual Order Only [address], [place], [address], 12/16/2018 00:14:06 12/12/19 19 12/11/2018 CMP, serum or plasm a globulin 2.8 g/dL 1.8-3. 8 Not Available [facility] - Manual Order Only [address], [place], [address], 12/16/2018 00:14:06 12/12/19 19 12/11/2018 CMP, serum or plasm a alkaline phosphatase 77 U/L <150 Not Available [facility] - Manual Order Only [address], [place], [address], 12/16/2018 00:14:06 12/12/19 19 12/11/2018 CMP, serum or plasm a alanine aminotransfe rase (ALT) 42 U/L <51 Not Available [facility] - Manual Order Only [address], [place], [address], 12/16/2018 00:14:06 12/12/19 19 12/11/2018 CMP, serum or plasm a aspartate aminotransfe rase (AST) 30 U/L <41 Not Available [facility] - Manual Order Only [address], [place], [address], 12/16/2018 00:14:06 12/12/19 19 12/11/2018 CMP, serum or plasm a bilirubin, total 0.3 mg/dL <1.3 Not Available [facility] - Manual Order Only [address], [place], [address], 12/16/2018 00:14:06 12/12/19 19 12/11/2018 CMP, serum or plasm a eGFR male 99 mL/mi n/1.7 3m_sq uared >60 Not Available [facility] - Manual Order Only [address], [place], [address], 12/16/2018 00:14:06 12/12/19 19 12/11/2018 CMP, serum or plasm a eGFR male descent 115 mL/mi n/1.7 3m_sq uared >60 Not Available [facility] - Manual Order Only [address], [place], [address], 12/16/2018 00:14:06 12/12/19 19 12/11/2018 TSH, serum or plasm a thyroid stimulating hormone 1.220 ulu/m L 0.400- 4.500 Not Available [facility] - Manual Order Only [address], [place], [address], 12/16/2018 00:14:07 12/12/19 19 12/11/2018 HbA1c (hemo [...] diabe mayda for child fanny. Not Available [facility] - Manual Order Only [address], [place], [address], 12/16/2018 00:14:07 12/12/19 19 12/11/2018 HbA1c (hemo [...] Care 2008; 31:14 73-14 78). Not Available [facility] - Manual Order Only [address], [place], [address], 12/16/2018 00:14:07 12/12/19 19 12/11/2018 mpo (myel [...] rohit cteri stics deter mined by the [facility] It has not been clear ed or appro cornelius by the U.S. FDA. The [facility] is regul ated under [facility] atory Impro vemen t Amend ments (CLIA ) as quali fied to perfo rm high- compl exity testi ng. This test is used for clini jorge alberto purpo ses. It shoul d not be regar ded as inves tigat ional or for resea rch. Not Available [facility] - Manual Order Only [address], [place], [address], 12/16/2018 00:14:07 12/12/19 19 12/11/2018 vitam in [...] rohit cteri stics deter mined by the [facility] It has not been clear ed or appro cornelius by the U.S. FDA. The [facility] is regul ated under Clini jorge alberto Labor atory Impro vemen t Amend ments (CLIA ) as quali fied to perfo rm high- compl exity testi ng. This test is used for clini jorge alberto purpo ses. It shoul d not be regar ded as inves tigat ional or for resea rch. Not Available [facility] - Manual Order Only [address], [place], [address], 12/16/2018 00:14:08 12/12/1912/11/2018 nmr lipop rofil e, serum LDL-P 1452 nmol/ L <935 high Relat tim risk: Optim al <935; Moder ate 935-1 816; High >1816 nmol/ L. Refer ence range is 592-2 404 nmol/ L. This test is perfo rmed by a Nucle sandra Ruize t[facility] Reson ancnikhil methjamila love. This test was devel oped and its perfo rmanc e rohit cteri stics deter mined by The [facility] It has not been clear ed or appro cornelius by the U.S. FDA. The [facility] is regul ated under Clini jorge alberto Labor atory Impro vemen t Amend ments (CLIA ) as quali fied to perfo rm high- compl exity testi ng. This test is used for clini jorge alberto purpo ses. It shoul d not be regar ded as inves tigat ional or for resea rch. Not Available [facility] - Manual Order Only [address], [place], [address], 12/16/2018 00:14:08 12/12/19 19 12/11/2018 nmr lipop rofil e, serum small LDL-P 783 nmol/ L <467 high Relat tim risk: Optim al <467; Moder ate 467-8 20; High >820 nmol/ L. Refer ence range is <1408 nmol/ L. Not Available [facility] - Manual Order Only [address], [place], [address], 12/16/2018 00:14:08 12/12/1912/11/2018 nmr lipop rofil e, serum LDL size 20.2 nm >20.5 low Relat tim risk: Optim al >20.5 ; High <20.6 nm. Refer ence range is 20.0- 22.3 nm. Not Available [facility] - Manual Order Only [address], [place], [address], 12/16/2018 00:14:08 12/12/1912/11/2018 nmr lipop rofil e, serum HDL-P 38.5 umol/ L >32.8 Relat tim risk: Optim al >32.8 ; Moder ate 29.2- 32.8; High <29.2 umol/ L. Refer ence range is 21.1- 43.4 umol/ L. Not Available [facility] - Manual Order Only [address], [place], [address], 12/16/2018 00:14:08 12/12/1912/11/2018 nmr lipop rofil e, serum large HDL-P <3.0 umol/ L >7.2 low Relat tim risk: Optim al >7.2; Moder ate 5.3-7 .2; High <5.3 umol/ L. Refer ence range is >3.5 umol/ L. Not Available [facility] - Manual Order Only [address], [place], [address], 12/16/2018 00:14:08 12/12/19 19 12/11/2018 nmr lipop rofil e, serum HDL size 8.2 nm >9.0 low Relat tim risk: Optim al >9.0; Moder ate 8.7-9 .0; High <8.7 nm. Refer ence range is 8.3-1 0.5 nm. Not Available [facility] - Manual Order Only [address], [place], [address], 12/16/2018 00:14:08 12/12/1912/11/2018 nmr lipop rofil e, serum large VLDL-P 6.4 nmol/ L <3.7 high Relat tim risk: Optim al <3.7; Moder ate 3.7-6 .1; High >6.1 nmol/ L. Refer ence range is <16.0 nmol/ L. Not Available [facility] - Manual Order Only [address], [place], [address], 12/16/2018 00:14:08 12/12/1912/11/2018 nmr lipop rofil e, serum VLDL size 51.6 nm <47.1 high Relat tim risk: Optim al <47.1 ; Moder ate 47.1- 49.0; High >49.0 nm. Refer ence range is 41.1- 61.7 nm. Not Available [facility] - Manual Order Only [address], [place], [address], 12/16/2018 00:14:08 12/12/1912/11/2018 urina lysis , dipst ick color YELLOW colorl ess-da rk yellow Not Available [facility] - Manual Order Only [address], [place], [address], 12/16/2018 00:14:08 12/12/1912/11/2018 urina lysis , dipst ick turbidity CLEAR clear Not Available [facility] - Manual Order Only [address], [place], [address], 12/16/2018 00:14:08 12/12/1912/11/2018 urina lysis , dipst ick glucose 1000 mg/dL <30 high Not Available [facility] - Manual Order Only [address], [place], [address], 12/16/2018 00:14:08 12/12/19 19 12/11/2018 urina lysis , dipst ick bilirubin <0.5 mg/dL <0.5 Not Available [facility] - Manual Order Only [address], [place], [address], 12/16/2018 00:14:08 12/12/1912/11/2018 urina lysis , dipst ick ketones NEGATI VE negati ve Not Available [facility] - Manual Order Only [address], [place], [address], 12/16/2018 00:14:08 12/12/1912/11/2018 urina lysis , dipst ick specific gravity 1.024 1.005- 1.035 Not Available [facility] - Manual Order Only [address], [place], [address], 12/16/2018 00:14:08 12/12/19 19 12/11/2018 urina lysis , dipst ick hemoglobin/b lood NEGATI VE negati ve Not Available [facility] - Manual Order Only [address], [place], [address], 12/16/2018 00:14:08 12/12/19 19 12/11/2018 urina lysis , dipst ick pH 6.5 5.0-8. 0 Not Available [facility] Manual Order Only [address], [place], [address], 12/16/2018 00:14:08 12/12/19 19 12/11/2018 urina lysis [...] inter preti ng resul ts. Not Available [facility] - Manual Order Only [address], [place], [address], 12/16/2018 00:14:08 12/12/19 19 12/11/2018 urina lysis , dipst ick urobilinogen <2 mg/dL <2 Not Available [facility] - Manual Order Only [address], [place], [address], 12/16/2018 00:14:08 12/12/19 19 12/11/2018 urina lysis , dipst ick nitrite NEGATI VE negati ve Not Available [facility] - Manual Order Only [address], [place], [address], 12/16/2018 00:14:08 12/12/19 19 12/11/2018 urina lysis , dipst ick leukocyte esterase <25 andreia/u L <25 Not Available [facility] - Manual Order Only [address], [place], [address], 12/16/2018 00:14:08 12/12/19 19 12/11/2018 urina lysis , dipst ick UWBC NONE cells /hpf 0-5 Not Available [facility] - Manual Order Only [address], [place], [address], 12/16/2018 00:14:08 12/12/19 19 12/11/2018 urina lysis , dipst ick URBC 0-2 cells /hpf 0-2 Not Available [facility] - Manual Order Only [address], [place], [address], 12/16/2018 00:14:08 12/12/1912/11/2018 urina lysis , dipst ick epithelial cells NONE cells /hpf 0-5 Not Available [facility] - Manual Order Only [address], [place], [address], 12/16/2018 00:14:08 12/12/1912/11/2018 urina lysis , dipst ick bacteria NONE hpf none Not Available [facility] - Manual Order Only [address], [place], [address], 12/16/2018 00:14:08 12/12/1912/11/2018 urina lysis , dipst ick hyaline casts NONE cells /lpf <10 Not Available [facility] - Manual Order Only [address], [place], [address], 12/16/2018 00:14:08 12/12/1912/11/2018 visua l acuit y* Status if not performed Patien t satisf ied w/ anothe r provid er Not Available [facility] [address] [facility] [place], [address], 12/11/2018 09:26:33 12/12/1912/11/2018 elect vasquez elmore am Vent Rate 83 Not Available [facility] [address], [place], [address], 12/11/2018 09:26:32 12/12/1912/11/2018 elect vasqeuz elmore am AK Inst 208 Not Available [facility] [address], [place], [address], 12/11/2018 09:26:32 12/12/1912/11/2018 elect vasquez elmore am QRS dur 86 Not Available [facility] [address], [place], [address], 12/11/2018 09:26:32 12/12/1912/11/2018 elect vasquez diogr am QT/QTc 357/39 7 Not Available [facility] [address] [address], [place], [address], 12/11/2018 09:26:32 12/12/19 19 12/11/2018 elect vasquez diogr am P-R-T 24 31 41 Not Available [facility] [address] [place] [address], [place], [address], 12/11/2018 09:26:32 12/12/1912/11/2018 ghassan metry FVC 3.65 Not Available [facility] [address] [address], [place], [address], 12/11/2018 09:26:32 12/12/1912/11/2018 ghassan metry FEV1 3.19 Not Available [facility] [address] [place] [address], [place], [address], 12/11/2018 09:26:32 12/12/1912/11/2018 ghassan metry FEV1/FVC (%) 87.5 Not Available [facility] [address] [address], [place], [address], 12/11/2018 09:26:32 12/12/1912/11/2018 ghassan metry [id number] (L/s) 4.79 Not Available [facility] [address] [address], [place], [address], 12/11/2018 09:26:32 12/12/1912/11/2018 ghassan metry PEF (L/s) 6.73 Not Available [facility] [address] [address], [place], [address], 12/11/2018 09:26:32 12/12/19 19 12/11/2018 ghassan metry FET (s) 5.87 Not Available [facility] [address] [address], [place], [address], 12/11/2018 09:26:32 12/12/1912/11/2018 audio gram 500hz- LEFT 30 Not Available [facility] [address], [place], [address], 12/11/2018 09:26:32 12/12/1912/11/2018 audio gram 500hz- RIGHT 30 Not Available [facility] [address], [place], [address], 12/11/2018 09:26:32 12/12/1912/11/2018 audio gram 1000hz- LEFT 30 Not Available [facility] [address], [place], [address], 12/11/2018 09:26:32 12/12/1912/11/2018 audio gram 1000hz- RIGHT 30 Not Available [facility] [address], [place], [address], 12/11/2018 09:26:32 12/12/1912/11/2018 audio gram 2000hz- LEFT 30 Not Available [facility] [address], [place], [address], 12/11/2018 09:26:32 12/12/1912/11/2018 audio gram 2000hz- RIGHT 30 Not Available [facility] [address], [place], [address], 12/11/2018 09:26:32 12/12/1912/11/2018 audio gram 4000hz- LEFT 40 Not Available [facility] [address], [place], [address], 12/11/2018 09:26:32 12/12/1912/11/2018 audio gram 4000hz- RIGHT 30 Not Available [facility] [address], [place], [address], 12/11/2018 09:26:32 12/12/1912/11/2018 audio gram 6000hz- LEFT 40 Not Available [facility] [address], [address], 12/11/2018 09:26:32 12/12/1912/11/2018 audio gram 6000hz- RIGHT 30 Not Available [facility] [address], [address], 12/11/2018 09:26:32 12/12/1912/11/2018 audio gram 8000hz- LEFT 60 Not Available [facility] [address], [address], 12/11/2018 09:26:32 12/12/1912/11/2018 audio gram 8000hz- RIGHT 60 Not Available [facility] [address], [address], 12/11/2018 09:26:32 12/12/1912/11/2018 body compo sitio n nabeel sis (PROC ) Status if Not Performed Other: see note Not Available [facility] [address] [place] [address], [address], 12/11/2018 09:26:31 12/12/1912/11/2018 mini menta l state exam* Status if not performed Other: see note Not Available [facility] [address] [place] [address], [address], 12/11/2018 09:26:31 12/12/1912/11/2018 funct ional asses sment scree roc* Gender Men Not Available [facility] [address], [address], 12/11/2018 09:26:31 12/12/1912/11/2018 funct ional asses sment scree roc* Result Dissat isfied Not Available [facility] [address], [address], 12/11/2018 09:26:31 12/12/1912/11/2018 epwor th sleep iness scale * Total Score 12 Not Available [facility] [address] [place] [address], [place], [address], 12/11/2018 09:26:31 12/12/19 19 12/11/2018 epwor th sleep iness scale * Indication 10-12 Border line Not Available [facility] [address] [place] [address], [place], [address], 12/11/2018 09:26:31 12/12/19 19 12/11/2018 cano anxie ty inven tory* Total Score 2 Not Available [facility] [address] [place] [address], [place], [address], 12/11/2018 09:26:30 12/12/19 19 12/11/2018 cano anxie ty inven tory* Indication 0-7 Minim al Anxiet y Not Available [facility] [address] [place] [address], [address], 12/11/2018 09:26:30 12/12/19 19 12/11/2018 (SAMMIE) ankle brach ial index * ARM- Right 130 Not Available [facility] [address] [place] [address], [address], 12/11/2018 09:26:30 12/12/19 19 12/11/2018 (SAMMIE) ankle brach ial index * ARM- Left 130 Not Available [facility] [address] [place] [address], [address], 12/11/2018 09:26:30 12/12/19 19 12/11/2018 (SAMMIE) ankle brach ial index * LEG- Right 112 Not Available [facility] [address] [place] [address], [place], [address], 12/11/2018 09:26:30 12/12/19 19 12/11/2018 (SAMMIE) ankle brach ial index * LEG- Left 112 Not Available [facility] [address] [place] [address], [place], [address], 12/11/2018 09:26:30 12/12/19 19 12/11/2018 (SAMMIE) ankle brach ial index * SAMMIE PRESSURE- Right 0.9 Not Available [facility] [address], [address], 12/11/2018 09:26:30 12/12/19 19 12/11/2018 (SAMMIE) ankle brach ial index * SAMMIE PRESSURE- Left 0.9 Not Available [facility] [address] [address], [place], [address], 12/11/2018 09:26:30 12/26/19 19 12/25/2018 fecal occul t blood , immun oassa y, stool iFOB negati ve Not Available [facility] [address] [place] [address], [address], 12/25/2018 09:57:43 04/26/1904/27/2019 lipid panel , serum cholesterol, total 132 mg/dL <200 normal Not Available [facility] [address], [place], [address], 04/27/2019 07:40:19 04/26/1904/27/2019 lipid panel , serum HDL cholesterol 42 mg/dL > or = 40 normal Not Available [facility] [address] [employer], [place], [address], 04/27/2019 07:40:19 04/26/1904/27/2019 lipid panel , serum triglyceride s 267 mg/dL <150 high If a non-f astin g speci men was colle cted, consi josé miguel repea t trigl yceri de testi ng on a fasti ng speci men if clini mateusz indic ated. Savage nolasco et al. J. of Clin. Lipid ol. 2015; 9:129 -169. Not Available [facility] [address], [place], [address], 04/27/2019 07:40:19 04/26/19 20 04/27/2019 lipid panel [...] 310(1 9): 2061- 2068 (http ://ed ucati on.[employer]BC [employer]. [employer]/f aq/FA Q164) Not Available [facility] [address] [facility], [place], [address], 04/27/2019 07:40:19 04/26/1904/27/2019 lipid panel , serum chol/HDLC ratio 3.1 (calc ) <5.0 normal Not Available [facility] [address] [facility], [place], [address], 04/27/2019 07:40:19 04/26/1904/27/2019 lipid panel , serum non HDL cholesterol 90 mg/dL _(jorge alberto c) <130 normal For patie nts with diabe mayda plus 1 major ASCVD risk facto r, treat ing to a non-H DL-C goal of <100 mg/dL (LDL- C of <70 mg/dL ) is consi dered a thera peuti c optio n. Not Available [facility] [address] [facility] [facility], [place], [address], 04/27/2019 07:40:19 04/26/1904/27/2019 CMP, serum or plasm a glucose 205 mg/dL 65-99 high Fasti ng refer ence inter itz For someo ne witho ut known diabe mayda, a gluco se value >125 mg/dL indic ates that they may have diabe mayda and this shoul d be confi rmed with a follo w-up test. Not Available [facility] [address] [facility] [place], [address], 04/27/2019 07:40:19 04/26/19 20 04/27/2019 CMP, serum or plasm a urea nitrogen (BUN) 10 mg/dL 7-25 normal Not Available [facility] [address] [facility] [place], [address], 04/27/2019 07:40:19 04/26/1904/27/2019 CMP, serum or plasm a creatinine 0.73 mg/dL 0.70-1 .25 normal For patie nts >49 years of age, the refer ence limit for Creat inine is appro ximat gaudencio 13% highe r for peopl e ident ified as Afric an-Am agnes n. Not Available [facility] [address] [facility] [place], [address], 04/27/2019 07:40:19 04/26/1904/27/2019 CMP, serum or plasm a eGFR non-afr. kyrgyz 100 mL/mi n/1.7 3m2 > or = 60 normal Not Available [facility] [address] [place], [address], 04/27/2019 07:40:19 04/26/19 20 04/27/2019 CMP, serum or plasm a eGFR 116 mL/mi n/1.7 3m2 > or = 60 normal Not Available [facility] [address] [place], [address], 04/27/2019 07:40:19 04/26/1904/27/2019 CMP, serum or plasm a BUN/creatini ne ratio NOT APPLIC ABLE (calc ) 6-22 Not Available [facility] [address] [facility] [place], [address], 04/27/2019 07:40:19 04/26/19 20 04/27/2019 CMP, serum or plasm a sodium 136 mmol/ L 135-14 6 normal Not Available [facility] [address] [facility] [place], [address], 04/27/2019 07:40:19 04/26/19 20 04/27/2019 CMP, serum or plasm a potassium 5.5 mmol/ L 3.5-5. 3 high Not Available [facility] [address] [facility] [place], [address], 04/27/2019 07:40:19 04/26/19 20 04/27/2019 CMP, serum or plasm a chloride 99 mmol/ L 98-110 normal Not Available [facility] [address] [facility] [place], [address], 04/27/2019 07:40:19 04/26/19 20 04/27/2019 CMP, serum or plasm a carbon dioxide 32 mmol/ L 20-32 normal Not Available [facility] [address] [facility] [place], [address], 04/27/2019 07:40:19 04/26/19 20 04/27/2019 CMP, serum or plasm a calcium 9.9 mg/dL 8.6-10 .3 normal Not Available [facility] [facility] [place], [address], 04/27/2019 07:40:19 04/26/19 20 04/27/2019 CMP, serum or plasm a protein, total 7.0 g/dL 6.1-8. 1 normal Not Available [facility] [address] [facility] [place], [address], 04/27/2019 07:40:19 04/26/19 20 04/27/2019 CMP, serum or plasm a albumin 4.3 g/dL 3.6-5. 1 normal Not Available [facility] [address] [place], [address], 04/27/2019 07:40:19 04/26/1904/27/2019 CMP, serum or plasm a globulin 2.7 g/dL_ (calc ) 1.9-3. 7 normal Not Available [facility] [address] [facility] [place], [address], 04/27/2019 07:40:19 04/26/1904/27/2019 CMP, serum or plasm a albumin/glob ulin ratio 1.6 (calc ) 1.0-2. 5 normal Not Available [facility] [address] [facility] [place], [address], 04/27/2019 07:40:19 04/26/1904/27/2019 CMP, serum or plasm a bilirubin, total 0.4 mg/dL 0.2-1. 2 normal Not Available [facility] [address] [facility] [place], [address], 04/27/2019 07:40:19 04/26/1904/27/2019 CMP, serum or plasm a alkaline phosphatase 81 U/L 35-144 normal Not Available [facility] [address] [facility] [place], [address], 04/27/2019 07:40:19 04/26/1904/27/2019 CMP, serum or plasm a AST 17 U/L 10-35 normal Not Available [facility] [place], [address], 04/27/2019 07:40:19 04/26/1904/27/2019 CMP, serum or plasm a ALT 24 U/L 9-46 normal Not Available [facility] [address] [facility] [place], [address], 04/27/2019 07:40:19 04/26/1904/26/2019 HbA1c (hemo globi n A1c), blood HbA1C 8.7 Not Available [facility] [address] [place], [place] [address]y , [place], [address], 04/26/2019 13:09:58 04/26/1904/26/2019 CBC w/ auto diff WBC 7.0 K/uL 4.6-10 .2 Not Available [facility] [address] [place] [address], [address], 04/26/2019 13:10:23 04/26/1904/26/2019 CBC w/ auto diff lym 2.4 K/uL 0.6-3. 4 Not Available [facility] [address] [place] [address], [place], [address], 04/26/2019 13:10:23 04/26/1904/26/2019 CBC w/ auto diff lym % 33.8 %L 10.0-5 0.0 Not Available [facility] [address] [place] [address], [address], 04/26/2019 13:10:23 04/26/1904/26/2019 CBC w/ auto diff *mid 0.6 K/uL 0.0-0. 9 Not Available [facility] [address] [place] [address], [address], 04/26/2019 13:10:23 04/26/1904/26/2019 CBC w/ auto diff *mid % 8.5 %M 0.0-12 .0 Not Available [facility] [address] [place] [address], [address], 04/26/2019 13:10:23 04/26/1904/26/2019 CBC w/ auto diff gran 4.0 K/uL 2.0-6. 9 Not Available [facility] [address] [place] [address], [address], 04/26/2019 13:10:23 04/26/1904/26/2019 CBC w/ auto diff gran% 57.7 %g 37.0-8 0.0 Not Available [facility] [address] [place] [address], [phone], 04/26/2019 13:10:23 04/26/1904/26/2019 CBC w/ auto diff RBC 5.09 M/uL 4.04-5 .48 Not Available [facility] [address] [place] [address], [phone], 04/26/2019 13:10:23 04/26/1904/26/2019 CBC w/ auto diff HGB 14.3 g/dL 12.2-1 5. Not Available [facility] [address] [place] [address], [phone], 04/26/2019 13:10:23 04/26/1904/26/2019 CBC w/ auto diff HCT 43.7 % 37.7-4 7.9 Not Available [facility] [address] [place] [address], [address], 04/26/2019 13:10:23 04/26/1904/26/2019 CBC w/ auto diff MCV 85.8 fL 80.0-9 7.0 Not Available [facility] [address] [place] [address], [address], 04/26/2019 13:10:23 04/26/1904/26/2019 CBC w/ auto diff MCH 28.1 pg 27.0-3 1.2 Not Available [facility] [address] [place] [address], [address], 04/26/2019 13:10:23 04/26/1904/26/2019 CBC w/ auto diff MCHC 32.7 g/dL 31.8-3 5.4 Not Available [facility] [address] [place] [address], [address], 04/26/2019 13:10:23 04/26/1904/26/2019 CBC w/ auto diff RDW 15.8 % 11.6-1 4.8 high Not Available [facility] [address] [address], [place], [address], 04/26/2019 13:10:23 04/26/19 20 04/26/2019 CBC w/ auto diff plt 237 K/uL 142.-4 24. 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 Not Available [facility] [address] [facility], [place], [address], 09/26/2019 07:05:23 Result Notes None recorded. Problems Name Problem SNOMED Code Status Onset Date Resolution Date Notes Provider Name and Address Organization Details Recorded Time Diabetes mellitus 19694090 Active 2017 Last Dennison III, MD [address] [address], [place], [address], [facility] 8 09:27:57 Seasonal allergy 559695076 Active 2017 Last Dennison III, MD [address], [address], [facility] 8 09:27:59 Mixed hypercholes terolemia and hypertrigly ceridemia 698005435 Active 2017 Last Dennison III[place] [address], [address], [facility] Internal [facility] 8 09:28:01 Vitamin D deficiency 94230729 Active 2017 Last Dennison III, MD [address], [address], [facility] 8 09:28:03 Allergic rhinitis 33518224 Active 2017 Last Dennison III[place] [address], [address], [facility] 8 09:28:08 Essential hypertensio n 77263391 Active 2017 Last [place]enn[place] III[place] [address], [address], [facility] 8 09:28:09 Plantar wart of left foot 6193426366318 9102 Active 2017 Last Dennison III, [place] [address], [address], [facility] Internal [facility] 8 09:28:14 Coronary arterioscle rosis in koi artery 9093280501949 Active 2017 Last Dennison III, MD [address], [address], [facility] 8 09:28:47 Sinusitis 73534749 Active 2018 [facility] 9 09:55:32 Alcoholism 1282981 Active 2018 Last Dennison III, MD [address], [address], [facility] 9 11:28:50 Sleep apnea 59761259 Active 2018 Last Dennison III, MD [address], [address], [facility] 9 12:22:22 Problem Notes None recorded. Procedures Surgical History Date Name Laterality Status Provider Name and Address Organization Details Recorded Time 9 Fall Risk completed [facility] 12/25/2018 08:15:54 9 Depression Screening completed [facility] 12/25/2018 08:15:54 9 Procedure completed Last Dennison III, [place] [address], [address], [facility] 12/26/2018 09:18:28 9 CHERELLE SPRING completed [facility] 12/25/2018 08:15:54 9 Alcohol Use Screening completed [facility] 12/25/2018 08:15:54 8 Fall Risk completed [facility] 10/04/2017 08:37:14 8 Procedure completed Last Dennison III, MD [address], [address], [facility] Internal [facility] 10/05/2017 19:23:22 8 CHERELLE SPRING completed [facility] 10/04/2017 08:37:14 8 Allergy Injection completed [facility] 03/08/2017 08:37:22 7 Colonoscopy completed Last Dennison III, MD [address], [address], [facility] Internal Med 03/08/2017 11:04:51 Imaging Results None [...] completed Not Available Not Available Not Available [facility] 10 billion cell-200 mg [...] No t Available [employer] [facility] Day [place] active Not Available Not Available N ot [...] Updated DateTime 9 182.88 cm 32.7 kg/m2 218876. 76 g 100 % 100 % 68 /min 130 mm[Hg] 70 mm[Hg] Astrid [facility] 9 09:27:40 Date Recorded Body height Body mass index (BMI) Body weight Heart rate Respiratory rate Systolic blood pressure Diastolic blood pressure Provider Name and Address Organization Details Last Updated DateTime 9 182.88 cm 32.7 kg/m2 814727. 76 g 72 /min 18 /min 130 mm[Hg] 70 mm[Hg] Last Dennison III, MD [address], [address] [place] [address] Internal Med 9 10:16:13 Date Recorded Body height Body mass index (BMI) Body weight Body temperature Systolic blood pressure Diastolic blood pressure Provider Name and Address Organization Details Last Updated DateTime 9 182.88 cm 32.8 kg/m2 512063. 35 g 99.3 [degF] 130 mm[Hg] 80 mm[Hg] Astrid [facility] 9 08:16:16 Date Recorded Heart rate Oxygen saturation Oxygen saturation in Arterial blood by Pulse oximetry Respiratory rate Provider Name and Address Organization Details Last Updated DateTime 12/25/2018 84 /min 92 % 92 % 18 /min Last Dennison III, MD [address], [address] [place] [address] 9 12:21:27 Date Recorded Body height Body mass index (BMI) Body weight Oxygen saturation Oxygen saturation in Arterial blood by Pulse oximetry Systolic blood pressure Diastolic blood pressure Provider Name and Address Organization Details Last Updated DateTime 0 182.88 cm 30.5 kg/m2 922523. 28 g 98 % 98 % 110 mm[Hg] 70 mm[Hg] Josie Vogel [facility] 0 11:24:25 Date Recorded Heart rate Respiratory rate Systolic blood pressure Diastolic blood pressure Provider Name and Address Organization Details Last Updated DateTime 04/26/2019 72 /min 18 /min 120 mm[Hg] 64 mm[Hg] Last Dennison III, MD [address], [address] [facility] 04/26/2019 11:34:36 Social History Question Answer Notes LastModified by Organizat ion Details LastModified Time Tobacco Smoking Status Never Smoker Not Available [facility] 12/25/2019 03:49:25 What Was The Date Of Your Most Recent Tobacco Screening? 10/05/2017 [id number] Information not available 12/25/2019 Sex: Unknown Functional [...] 9 completed Last Dennison III, MD [address], [address] 03/08/2017 10:58:46 Pneumococcal conjugate PCV 13 5 completed Last Dennison III, MD 9517 [facility] [address], [address] 03/08/2017 10:59:19 zoster recombinant 9 completed Not Available [facility] 03/10/2019 02:28:34 zoster recombinant 9 completed Not Available [facility] 03/10/2019 02:28:34 Influenza, recombinant, quadrivalent, PF 9 completed Not Available [facility] 03/10/2019 02:28:37 Tdap 9 completed Not Available [facility] 03/10/2019 02:28:32 zoster recombinant 8 completed Josie akhtar [facility] Internal [facility] 04/04/2018 08:24:16 Influenza, split virus, quadrivalent, preservative 7 completed Josie akhtar [facility] Internal [facility] 09/20/2017 10:20:04 Past Encounters Encounter ID Performer Location Encounter Start Date Encounter Closed Date Diagnosis/Indication Diagnosis SNOMED-CT Code Diagnosis ICD10 Code Diagnosis Note [id number] Last Dennison III, MD [facility] [address] [address] 03/03/2017 14:21:13 03/03/2017 15:53:16 Plantar wart of left foot 4577818083 2346615 B07.0 Lethargy 193905850 R53.8 3 Muscle weakness 73623366 M62.81 Type 2 ailin betes mellitus 76388958 E11.65 Uncontroll ed type 2 diabetes mellitus 596604615 E11.65 [id number] Last Dennison III, MD [facility] [address],[place] [address] [place] [address] 03/08/2017 08:26:29 03/08/2017 09:22:49 Diabetes mellitus 17463983 E11.9 poor control with A1C of 9.8 on therapy will in insulin Tx. Seasonal allergy 0044666 04 J30.2 Coronary arteriosclerosis in koi artery 2148657148 107 I25.10 Mixed hypercholesterolemia and hypertriglyceridemia 081370829 E78.2 Vitamin D deficiency 347 24839 E55.9 Allergic rhinitis 157741 04 J30.9 Essential hypertension 18212638 I10 Plantar wa rt of left foot 5076851278 5283997 B07.0 [id number] Last Dennison III, MD [facility] [address] [address] 04/20/2017 12:56:32 04/20/2017 14:58:53 Diabetes mellitus 72789410 E11.9 poor control with A1C of 9.8 on therapy will in insulin Tx. and repeat A1C today ahead of his 05/03/17 appt. Allergic rhinitis 653466 04 J30.9 Mixed hypercholesterolemia and hypertriglyceridemia 868984103 E78.2 Acute sinusitis 44040702 J01.90 Acute pharyngitis 917220 003 J02.9 Acute bronchitis 3107382 2 J20.9 Bronchitis 59811451 J40 [id number] Last Dennison III, MD [facility] [address] [place] [address] [place] [address] 05/10/2017 13:48:44 05/10/2017 14:56:47 Hypercholesterolemia 44369144 E78.00 Diabetes mellitus 238172 09 E11.9 poor control with A1C of 9.8 on therapy will in insulin Tx. and repeat A1C today ahead of his 05/03/17 appt. Essential hypertension 34892256 I10 Coronary arteriosclerosis in koi artery 7556554640 107 I25.10 [id number] Last Dennison III, MD [facility] [address] [place] [address], [place] [address] 07/12/2017 08:32:03 07/22/2017 09:55:23 [id number] Last Dennison III, MD [facility] [address] [place] [address], [place] [address] 07/12/2017 08:55:38 07/13/2017 08:52:51 Adult health examination 713510995 Z00.00 Screening for malignant neoplasm of prostate 217615062 Z12.5 [id number] Last Dennison III, MD [facility] [address] [place] [address] 10/04/2017 08:28:27 10/04/2017 12:45:37 Adult health examination 765208911 Z00.00 Mixed hypercholesterolemia and hypertriglyceridemia 779084362 E78.2 Coronary arteriosclerosis in koi artery 1919594355 107 I25.10 Vitamin D deficiency 347 53215 E55.9 Seasonal allergy 2504006 04 J30.2 Essential hypertension 44489067 I10 Allergic rhinitis 724820 04 J30.9 Diabetes mellitus 120307 09 E11.9 poor control with A1C of 9.8 on therapy will in insulin Tx. and repeat A1C today ahead of his 05/03/17 appt. [id number] Last Dennison III, MD [facility] [address] [place] [address] 12/06/2017 08:44:54 12/07/2017 09:02:26 Diabetes mellitus 76215381 E11.9 Essential hypertension 78641201 I10 [id number] Last Dennison III, MD [facility] [address] [place] [address] 12/27/2017 08:13:48 12/27/2017 08:53:48 Mixed hypercholesterolemia and hypertriglyceridemia 832688584 E78.2 Coronary arteriosclerosis in koi artery 1483948055 107 I25.10 Seasonal allergy 0319011 04 J30.2 Essential hypertension 23348738 I10 Diabetes mellitus 158778 09 E11.9 Allergic rhinitis 766506 04 J30.9 [id number] Last Dennison III, MD [facility] [address] [address] 03/13/2018 09:09:20 03/13/2018 10:28:28 Diabetes mellitus 91852107 E11.9 Sinusitis 51857317 J32.9 Bronchitis 74111210 J40 Type 2 ailin betes mellitus 20062432 E11.65 Allergic rhinitis 505958 04 J30.9 Essential hypertension 22367602 I10 Seasonal allergy 3583292 04 J30.2 Coronary arteriosclerosis in koi artery 1523901946 107 I25.10 Acute pharyngitis 810745 003 J02.9 Rapid Strep is positive and WBC = 11.9. Treated with Omnicef. [id number] Last Dennison III, MD [facility] [address] [place] [address],[address] [place] [address] 04/04/2018 08:32:45 04/04/2018 11:18:39 Active or passive immunization 308761103 Z23 [id number] Last Dennison III, MD [facility] [address] [facility] [address] [place] [address] 11/13/2018 10:32:49 11/13/2018 15:01:55 Mixed hypercholesterolemia and hypertriglyceridemia 779934332 E78.2 Vitamin D deficiency 347 33274 E55.9 Coronary arteriosclerosis in koi artery 1031235055 107 I25.10 Seasonal allergy 0302738 04 J30.2 Essential hypertension 87455343 I10 Allergic rhinitis 346811 04 J30.9 Diabetes mellitus 734105 09 E11.9 Active or passive immunization 441876492 Z23 Pain of joint 76386554 M 25.50 Fatigue 79347449 R53.83 [id number] Last Dennison III, MD [facility] [address] [address] 12/11/2018 08:52:31 12/11/2018 15:02:38 Adult health examination 559120734 Z00.00 Screening procedure 2012 5006 Z13.9 [id number] Last Dennison III, MD [facility] [address] [address] 12/11/2018 08:53:10 12/11/2018 10:44:27 Vitamin D deficiency 79560389 E55.9 Essential hypertension 66171810 I10 Allergic rhinitis 012362 04 J30.9 Diabetes mellitus 883165 09 E11.9 Mixed hypercholesterolemia and hypertriglyceridemia 719280902 E78.2 Screening for malignant neoplasm of prostate 747415471 Z12.5 Viral screening 42852076 4 Z11.59 [id number] Last Dennison III, MD [facility] [address] [address] 12/25/2018 07:59:48 12/25/2018 12:28:09 Adult health examination 974705859 Z00.00 Active or passive immunization 958908952 Z23 Alcoholism 4826685 F10.2 0 Mixed hypercholesterolemia and hypertriglyceridemia 862554932 E78.2 Coronary arteriosclerosis in koi artery 7056386032 107 I25.10 Vitamin D deficiency 347 57298 E55.9 Seasonal allergy 2002225 04 J30.2 Essential hypertension 89220910 I10 Allergic rhinitis 209154 04 J30.9 Diabetes mellitus 091934 09 E11.9 [id number] Last Dennison III, MD [facility] [address] [address] 04/26/2019 10:40:19 04/27/2019 11:11:27 Alcoholism 9296853 F10.20 Allergic rhinitis 390282 04 J30.9 Coronary arteriosclerosis in koi artery 6372772731 107 I25.10 Diabetes mellitus 793382 09 E11.9 Essential hypertension 10001444 I10 Mixed hypercholesterolemia and hypertriglyceridemia 307421720 E78.2 [id number] Last Dennison III, MD [facility] [address] [address] 05/17/2019 11:03:10 05/17/2019 13:48:22 Alcoholism 3034473 F10.20 Allergic rhinitis 366656 04 J30.9 Coronary arteriosclerosis in koi artery 2637358107 107 I25.10 Diabetes mellitus 402712 09 E11.9 Essential hypertension 33349924 I10 Mixed hypercholesterolemia and hypertriglyceridemia 165225755 E78.2 Vitamin D deficiency 347 80610 E55.9 Sleep apnea 37748817 G47 .30 [id number] Last Dennison III, MD [facility] [address] [address] 09/13/2019 14:26:17 09/13/2019 15:00:18 Exposure to SARS-CoV-2 417334991 Z20.828 Health Concerns Section Related Observation LastModified by Organization Detai ls LastModified Time None Recorded Concern Status LastModified by Organization Details LastModified Time None Recorded Advance Directives Directive None Recorded Payers Encounter Date Sequence Insurance Name Policy Number Policy Ojeda Covered Member ID Ojeda Member ID Guarantor Name 12/11/2018 1 [employer] - OPEN ACCESS - NATIONAL (POS) [id number] Harish To [id number] Harish To 12/25/2018 1 [employer] - OPEN ACCESS - NATIONAL (POS) [id number] Harish To [id number] Harish To 04/26/2019 1 [employer] - OPEN ACCESS - NATIONAL (POS) [id number] Harish To [id number] Harish To 05/17/2019 1 [employer] - OPEN ACCESS - NATIONAL (POS) [id number] Harish To [id number] Harish To 09/13/2019 1 [employer] - OPEN ACCESS - NATIONAL (POS) [id number] Harish To [id number] Harish To Notes Date Note Type Note Provider Name and Address Organization Details Recorded Time 12/11/2018 text/html Patient presents today for the [facility] labs and procedures. Astrid Jones [facility] Internal Med 01/16/2019 11:58:42 12/11/2018 text/html HPI: [...] November 13, 2018. [place] [address], [address], [facility] 12/12/2018 18:13:59 12/25/2018 text/html [...] this time. Patient is here for the [facility] Wellness Program and Subsequent Annual Wellness Exam. During this visit we will review and discuss their Health Risk Assessment and review the various tests and procedures performed as part of the [facility] Annual Wellness Exam. The patient has no [...] home and safety. Last Dennison III, MD [address] [address], [place], [address], [facility] - [facility] Internal Med 12/26/2018 09:24:59 04/26/2019 text/html This [...] sub q. Last Denn[place] III[place] [address], [address], [facility] Internal [facility] 04/27/2019 12:24:55 05/17/2019 text/html [...] May 01. Last Dennison III, MD 9517 [facility] [address], [address], [facility] 05/17/2019 11:41:31
== END 2024-07-13 08:39 | disposition home or self-care (01) ==
PROVIDERS: PCP Internal Medicine; Visit Provider Internal Medicine
DX: R93.89 Abnormal findings on diagnostic imaging of other specified body structures (principal); E27.8 Other specified disorders of adrenal gland; D35.02 Benign neoplasm of left adrenal gland; K80.20 Calculus of gallbladder without cholecystitis without obstruction
CPT/HCPCS: 74183; A9577

== ENCOUNTER 2024-12-14 08:40 | Outpatient (CLI) | payer MEDICARE, SELFPAY ==
--- NOTE | ~2024-12-14 | CT_ITS ---
EXAMINATION: CT diagnostic chest w con DATE: 12/14/2024 09:10 INDICATION: R91.1 - Solitary pulmonary nodule TECHNIQUE: Computed tomography (CT) of the chest was performed with 100 mL Omnipaque-350 intravenous contrast. Additional 3D reconstructions utilizing coronal maximum intensity projection (MIP) were performed. Automated exposure control and iterative reconstruction technique were employed. The dose-length product was 583.90 mGy-cm. COMPARISON: None FINDINGS: Unchanged mild linear discoid atelectasis/scarring in the lingula. There are few unchanged small pulmonary nodules left upper and lower lobes, the largest measuring 6 mm in the left lower lobe. No pneumonia, pulmonary edema or pleural effusion. Heart size is normal. Atherosclerotic coronary artery calcifications and possible also with stenting along the left anterior descending coronary artery. Postoperative change of prior median sternotomy and coronary artery bypass grafting. No pericardial effusion. Thoracic aorta is normal in caliber with no dissection. No pathologically enlarged thoracic lymphadenopathy. Visualized upper abdomen is unremarkable. Mild thoracic spondylosis. IMPRESSION: 1. No interval change in a few small pulmonary nodule left lower lobe. Consider additional 1 year follow-up low-dose noncontrast chest CT. Reviewed, dictated and finalized at location A.
--- OUTSIDE RECORDS SUMMARY | 2024-12-14 08:45 | XMS_ITS | Clinical Summary ---
Author Organization [facility] Address [address] [place] [address] Care Team Providers Care Insurance Investigator Name Role Phone Jorge Wild MD Primary Care Provider [phone] Allergies No known active allergies Medications Victoza [...] mg total) by mouth daily 0 Active [id number]-ly [id number] 200-175-250 mcg tablet Take by mouth Active [...] mg under the skin as needed (severe hypoglycemia, may repeat in 15 mins if needed with new device.) 0.6 mL 1 5 Active blood-glucose sensor (FreeStyle Chris 3 Plus Sensor) device Use to check blood sugar continuously. 5 each 3 5 Active donepeziL (ARICEPT) 5 mg tablet Take 1 tablet (5 mg total) by mouth nightly 14 tablet 5 08/24/19 26 Active donepeziL (ARICEPT) 10 mg tablet Take 1 tablet (10 mg total) by mouth nightly Do not start until completing 2 weeks of 5 mg tablets 30 tablet 5 5 02/20/20 25 Active Active Problems Problem Noted Date Diagnosed Date Coronary artery disease invo lving venetie ira coronary artery of venetie ira heart without angina pectoris 05/22/2020 History of coronary artery stent placement 05/22 Encounters Date Type Department Care Team Description 10/10/2024 Orders Only [facility] Neurology [address] [place] [id number] Ben Pantoja Si, MD Frontotemporal dementia (Primary Dx) 10/01/2024 7:05 AM CDT - 10/01/2024 11:59 PM CDT Hospital Encounter [facility] [address] [place] [id number] Discharge Disposition: Discharge to home or self care 10/01/2024 7:05 AM CDT - 10/01/2024 11:59 PM CDT Hospital Encounter [facility] [address] [place] [id number] Dementia without behavioral disturbance, psychotic disturbance, mood disturbance, or anxiety, unspecified dementia severity, unspecified dementia type (HCC) Discharge Disposition: Discharge to home or self care from Last 3 Months Surgical History Surgery Date Site/Laterality Comments CORONARY ANGIOPLASTY 02/21/2014 - 02/20/2015 Medical History Medical History Date Comments Hyperlipidemia Diabetes mellitus Hypertension Family History Medical History Relation Name Comments front temporal dimentia Brother Lung cancer Mother Heart disease Sister Relation Name Status Comments Brother (Age 61) Father (Age 78) Mother (Age 81) Sister Alive Social History Tobacco Use Types Packs/Day Years Used Date Smoking Tobacco: Never Smokeless Tobacco: Never Tobacco Cessation:Counseling Given: Not Answered AUDIT-C Answer Date Recorded Q1: How often do you have a drink containing alc ohol? 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 Oxygen Saturation 96% 08/23/2024 9:02 AM CDT Inhaled Oxygen Concentration - - Weight 80.7 kg (178 lb) 08/23/2024 9:02 AM CDT Height 182.9 cm (6') 08/23/2024 9:02 AM CDT Body Mass Index 24.14 08/23/2024 9:02 AM CDT Plan of Treatment Health Maintenance Due Date Last Done Comments Albumin Creatinine Ratio, Urine 1958 Colon Cancer Screening-Colonoscopy 1958 Depression Screening 1958 Fall Risk Assessment 1958 Hepatitis C Screening 1958 Prostate Cancer Screening-PSA 1958 eGFR 1958 Dilated Eye Exam 1958 Foot Exam 1958 Hepatitis B Screening 1976 Pneumococcal vaccine 65+ (2 of 2 - PPSV23, PCV20, or PCV21) 06/14/2014 04/19/2014 Lipid Panel 05/22/2021 05/22/2020, 11/15/2007 Well Visit 65+ 04/26/2023 Influenza Vaccine (#1) 2024 , 11/13/2018, 12/21/2016 Hemoglobin A1C 12/19/2024 06/19/2024, 03/20/2024 DTaP/Tdap/Td Vaccine (3 - Td or Tdap) 12/25/202805/2018, 06/21/2008 Zoster Vaccine Completed 04/04/2018, 12/11/2017 Procedures Procedure Name Priority Date/Time Associated Diagnosis Comments PET BRAIN NON TUMOR METABOLIC Schedule Routine, Read Routine (OP Routine) 10/01/2024 8:40 AM CDT Dementia without behavioral disturbance, psychotic disturbance, mood disturbance, or anxiety, unspecified dementia severity, unspecified dementia type (HCC) POCT HEMOGLOBIN A1C Routine 06/19/2024 9:42 AM CDT Type 2 diabetes mellitus with hypoglycemia without coma, with long-term current use of insulin (HCC) POCT LIPID PANEL Routine 05/22/2020 12:0 9 PM CDT Coronary artery disease involving venetie ira coronary artery of venetie ira heart without angina pectoris from Last 3 Months or Most Recently Relevant to Health Maintenance Results * PET/CT FDG Brain NON-Tumor Metabolic Evaluation (10/01/2024 8:40 AM CDT) Anatomical Region Laterality Modality Head and Neck N/A Positron Emissio n Tomography (PET) 10/01/2024 10:2 4 AM CDT Impressions 10/01/2024 12:31 PM CDT Symmetric moderate hypometabolism of the bilateral frontal and temporal lobes suggestive of frontotemporal dementia pattern. Dictated by: Cathryn Raza MD The radiology attending physician has personally reviewed this study, and had reviewed and/or edited this written report and agrees with it. Electronically signed by: Naye Shaver M.D. Narrative 10/01/2024 12:31 PM CDT EXAMINATION: BRAIN FDG-PET/CT IMAGING DATE OF STUDY: 10/01/2024 SCANNER: [facility] [employer] ([facility]). RADIOPHARMACEUTICAL: 10.59 mCi F-18 Fluorodeoxyglucose (FDG) i.v. Injection site: Right antecubital HISTORY: 64-year-old man with episodes of disorientation, apathy and memory issues and family history of frontotemporal dementia. Prior amyloid PET/CT was negative. TECHNIQUE: The patient's fasting blood glucose level, measured by glucometer before injection of FDG, was 89 mg/dL. FDG was administered intravenously with the patient in a quiet, darkened room, and 39 minutes later, after positioning of the patient's head, noncontrast CT images were obtained for attenuation correction and for fusion with emission PET images to allow for anatomical localization of PET findings. Standard emission PET imaging was then performed. The study was interpreted on the [employer] workstation. COMPARISON: Amyloid PET/CT 07/13/2024, brain MRI 08/13/2023 FINDINGS: Symmetric moderately decreased FDG avidity of the bilateral temporal and frontal lobes. Relatively preserved FDG avidity of the parietal and occipital lobes. Incidental CT findings: Mild generalized volume loss, most prominent at the anterior temporal lobes. Correlation with prior brain MRI is recommended. Otherwise, no acute intracranial findings. Procedure Note Naye Shaver MD - 10/01/2024 EXAMINATION: BRAIN FDG-PET/CT IMAGING DATE OF STUDY: 10/01/2024 SCANNER: [facility] [employer] ([facility]). RADIOPHARMACEUTICAL: 10.59 mCi F-18 Fluorodeoxyglucose (FDG) i.v. Injection site: Right antecubital HISTORY: 64-year-old man with episodes of disorientation, apathy and memory issues and family history of frontotemporal dementia. Prior amyloid PET/CT was negative. TECHNIQUE: The patient's fasting blood glucose level, measured by glucometer before injection of FDG, was 89 mg/dL. FDG was administered intravenously with the patient in a quiet, darkened room, and 39 minutes later, after positioning of the patient's head, noncontrast CT images were obtained for attenuation correction and for fusion with emission PET images to allow for anatomical localization of PET findings. Standard emission PET imaging was then performed. The study was interpreted on the [employer] workstation. COMPARISON: Amyloid PET/CT 07/13/2024, brain MRI 08/13/2023 FINDINGS: Symmetric moderately decreased FDG avidity of the bilateral temporal and frontal lobes. Relatively preserved FDG avidity of the parietal and occipital lobes. Incidental CT findings: Mild generalized volume loss, most prominent at the anterior temporal lobes. Correlation with prior brain MRI is recommended. Otherwise, no acute intracranial findings. IMPRESSION: Symmetric moderate hypometabolism of the bilateral frontal and temporal lobes suggestive of frontotemporal dementia pattern. Dictated by: Cathryn Raza MD The radiology attending physician has personally reviewed this study, and had reviewed and/or edited this written report and agrees with it. Electronically signed by: Naye Shaver M.D. Car Cha MD IMG PET PROCEDURES Final Resul t * POCT hemoglobin A1c (06/19/2024 9:42 AM [...] Most Recently Relevant to Health Maintenance Insurance [employer] PPO [employer]ICARE PPO [employer] MEDICARE PPO Care Teams Insurance Investigator Relationship Specialty Start Date End Date Jorge Wild MD PCP - General Internal Medicine 06/11/22
[2024-12-14 09:06] LABS: Estimated Glomerular Filt Rate > 60
== END 2024-12-14 08:41 | disposition home or self-care (01) ==
PROVIDERS: PCP Internal Medicine; Visit Provider Internal Medicine
DX: R91.8 Other nonspecific abnormal finding of lung field (principal)
CPT/HCPCS: 71260; Q9967